=== PATIENT | male | born 1945 | race Caucasian/White ===

== ENCOUNTER 2017-01-15 06:02 | Inpatient (IN) | payer OTHER, BC ==
[2017-01-15] MEDS ORDERED: ceFAZolin 2 GM/DEXTROSE 100 ML IV ONE (06:26)
[2017-01-15] MEDS ORDERED: DEXAMETHASONE 10 MG/ML VIAL IVP ONE (06:26)
[2017-01-15] MEDS ORDERED: LR 1,000 ML IV ONE (06:27)
[2017-01-15] MEDS ORDERED: CHLORHEXIDINE GLUC HIBICLENS 118 ML BTL TP ONE (06:40)
[2017-01-15] MEDS ORDERED: THROMBIN (BOVINE) 5,000 UNIT VIAL TP ONE (06:41)
[2017-01-15] MEDS ORDERED: BACITRACIN 50,000 UNITS/10 ML SYR IRR ONE (06:41)
[2017-01-15] MEDS ORDERED: BUPIVACAINE 0.25% 30 ML SDV ONE (06:41)
--- NOTE | 2017-01-15 07:01 | PDHPUP ---
History & Physical Update H&P update statement: This history and physical update is based on an assessment of the patient which was completed after admission or registration (within 24 hours), but prior to the surgery/procedure. H&P update: H&P reviewed & patient examined, no change in patient's condition since H&P completed
[2017-01-15] MEDS ORDERED: PROPOFOL/EMULSION 500 MG/50 ML BOTTLE IV ONE ×2 (07:08→08:52)
[2017-01-15] MEDS ORDERED: PROPOFOL 200 MG/20 ML VIAL ONE (07:08)
[2017-01-15] MEDS ORDERED: fentaNYL 100 MCG/2 ML INJ ONE ×2 (07:08→10:33)
[2017-01-15] MEDS ORDERED: REMIFENTANIL HCL 1 MG VIAL ONE ×2 (07:08)
[2017-01-15] MEDS ORDERED: SUCCINYLCHOLINE CHLORIDE*ANESTHESIA ONLY*200 MG/10 ML SYR IVP ONE (07:10)
[2017-01-15] MEDS ORDERED: LIDOCAINE 2% 5 ML SDV ONE (07:10)
--- NOTE | 2017-01-15 07:44 | PDANEPAE ---
ANE History of Present Illness Patient presents for 1 level ACDF ANE Past Medical History - Cardiovascular History Hx Hypertension: No Hx Arrhythmias: No Hx Chest Pain: No Hx Coronary Artery / Peripheral Vascular Disease: No Hx CHF / Valvular Disease: No Hx Palpitations: No Cardiovascular History Comment: RECENT BP ELEVATION - Pulmonary History Hx COPD: No Hx Asthma/Reactive Airway Disease: No Hx Recent Upper Respiratory Infection: No Hx Oxygen in Use at Home: No Hx Sleep Apnea: Yes Sleep Apnea Screening Result - Last Documented: Negative Pulmonary History Comment: ASTHMA W/ALLERGIES - CATS DANDER & DUST - Neurologic History Hx Cerebrovascular Accident: No Hx Seizures: No Hx Dementia: No - Endocrine History Hx Diabetes: No - Renal History Hx Renal Disorders: No Renal History Comment: BLADDER CONTROL - Liver History Hx Hepatic Disorders: No - Neurological & Psychiatric Hx Hx Neurological and Psychiatric Disorders: No Neurological / Psychiatric History Comment: CYMBALTA FOR BACK PAIN - Cancer History Hx Cancer: No - Congenital Disorder History Hx Congenital Disorders: No - GI History Hx Gastrointestinal Disorders: Yes Gastrointestinal History Comment: OCCAS ACID REFLUX - Other Health History Other Health History: NEG - Chronic Pain History Chronic Pain: Yes (BACK PAIN) - Surgical History Prior Surgeries: HERNIA REPAIR. EYE SURGERY CHILDHOOD ANE Review of Systems Review of Systems: - Exercise capacity METS (RN): 4 METS ANE Patient History - Allergies Allergies/Adverse Reactions: cat dander Allergy (Verified 01/01/17 10:27) sulfite Allergy (Verified 01/01/17 10:27) - Home Medications Home medications: home medication list seen and reviewed Home Medications: Aspirin 01/01/17 [Last Taken Unknown] Cymbalta 01/01/17 [Last Taken 01/15/17 02:00] Herbals/Supplements -Info Only 01/01/17 [Last Taken Unknown] Naproxen 01/01/17 [Last Taken Unknown] Prilosec Otc 01/01/17 [Last Taken Unknown] Simvastatin 01/01/17 [Last Taken Unknown] - NPO status NPO Status: no food or drink >8 hours NPO Since - Liquids (Date): 01/15/17 NPO Since - Liquids (Time): 02:00 NPO Since - Solids (Date): 01/14/17 NPO Since - Solids (Time): 18:00 - Anes Hx Anes Hx: no prior problems - Smoking Hx Smoking Status: Former smoker - Family Anes Hx Family Hx Anesthesia Complications: NEG ANE Labs/Vital Signs - Vital Signs Blood Pressure: 138/95 Heart Rate: 78 Respiratory Rate: 14 O2 Sat (%): 91 Height: 162.56 cm Weight: 77.111 kg ANE Physical Exam - Airway Neck exam: decreased ROM, short neck Mallampati Score: Class 3 Mouth exam: small mouth opening, sotelo - Pulmonary Pulmonary: no respiratory distress - Cardiovascular Cardiovascular: regular rate and rhythym - ASA Status ASA Status: II ANE Anesthesia Plan Anesthesia Plan: general endotracheal anesthesia (RBA discussed)
[2017-01-15] MEDS ORDERED: PHENYLEPHRINE HCL 100 MCG/ML SYR ONE (07:46)
[2017-01-15] MEDS ORDERED: epHEDrine SULFATE 10 MG/ML SYR ONE (07:46)
[2017-01-15] MEDS ORDERED: ONDANSETRON 4 MG/2 ML VIAL ONE (08:15)
[2017-01-15] MEDS ORDERED: DEXAMETHASONE 4 MG/ML VIAL ONE (08:15)
[2017-01-15] MEDS ORDERED: HYDROmorphONE/DILAUDID 2 MG/ML INJ ONE (08:59)
[2017-01-15] MEDS ORDERED: BISACODYL 10 MG SUPP PR PRN (09:24)
[2017-01-15] MEDS ORDERED: diphenhydrAMINE 25 MG CAP PO PRN (09:24)
[2017-01-15] MEDS ORDERED: ONDANSETRON DISINTEGRATING 4 MG TAB PO PRN (09:24)
[2017-01-15] MEDS ORDERED: MAGNESIUM HYDROXIDE 30 ML UDCUP PO PRN (09:24)
[2017-01-15] MEDS ORDERED: LACTULOSE 20 GM/30 ML UDCUP PO PRN (09:24)
[2017-01-15] MEDS ORDERED: ONDANSETRON 4 MG/2 ML VIAL IVP PRN ×2 (09:24→09:47)
[2017-01-15] MEDS ORDERED: NS 1,000 ML IV SCH (09:30)
--- NOTE | 2017-01-15 09:31 | SOAPPROG ---
SOAP Progress Note Assessment/Plan: Assessment: 71 yo M sp C5/6 ACDF Plan: stable hard collar verenice x 1 please call with neuro changes 01/15/17 09:30 Subjective: + neck pain, no arm pain Objective: Vital Signs Temp Pulse Resp BP Pulse Ox 37.1 C 78 14 138/95 H 91 L 01/15/17 06:35 01/15/17 07:44 01/15/17 07:44 01/15/17 07:44 01/15/17 07:44 somnolent PERRL, No facial droop ZORAN x 4 + light touch ICD10 Worksheet Patient Problems: Problems Problem Status Onset Fusion of spine of cervical region Acute - ICD10 Problem Qualifiers (1) Fusion of spine of cervical region
[2017-01-15] MEDS: LABETALOL HCL 50 MG/10 ML SYR IVP PRN ×3 (09:46→11:03)
[2017-01-15] MEDS ORDERED: LABETALOL HCL 5 MG/ML 20 ML MDV ONE (09:46)
[2017-01-15] MEDS ORDERED: NALOXONE HCL 0.4 MG/ML INJ IVP PRN (09:47)
[2017-01-15] MEDS ORDERED: HYDROCODONE/APAP 5/325 TAB PO PRN (09:47)
[2017-01-15] MEDS ORDERED: LR 500 ML IV PRN (09:47)
[2017-01-15] MEDS ORDERED: OXYCODONE/APAP 5/325 TAB PO PRN (09:47)
[2017-01-15] MEDS ORDERED: HYDROmorphONE/DILAUDID 1 MG/ML INJ IVP PRN (09:47)
--- NOTE | 2017-01-15 09:48 | POSTANESTH ---
Post Anesthetic Evaluation Cardiovascular Status: Tx Hyper/Hypo-tension Respiratory Status: Normal, Stable Level of Consciousness/Mental Status: Can Participate in Eval Pain Control: Adequate, Prn Tx Ordered Nausea/Vomiting Control: Adequate, Prn Tx Ordered Complications Possibly Related to Anesthesia: None Noted
[2017-01-15] MEDS: fentaNYL 100 MCG/2 ML INJ IVP PRN ×2 (10:34→10:44)
--- NOTE | 2017-01-15 10:49 | GOP ---
[f rep st] OPERATIVE REPORT DATE OF OPERATION: 01/15/2017 SURGEON: Gal Saxena MD YARN HANDLER: David Storm. ANESTHESIA: General endotracheal. PREOPERATIVE DIAGNOSIS: 1. Cervical spondylitic myelopathy. 2. 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 3. Progressive myelopathy. 4. Obesity. POSTOPERATIVE DIAGNOSIS: 1. Cervical spondylitic myelopathy. 2. 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 3. Progressive myelopathy. 4. Obesity. PROCEDURE PERFORMED: Mini-open exposure for C5-6 and a complete anterior cervical diskectomy and art hrodesis, with a 12 mm structural PEEK interbody spacer and local autograft. Placement of a 23 mm Ln K CastleLoc-P anterior cervical plate with self-drilling screws. Use of intraoperative microscopy an d fluoroscopy. FINDINGS: ESTIMATED BLOOD LOSS: 25 cc. INDICATIONS: The patient is a 71-year-old man with myelopathic symptoms in the setting of a large di sc herniation and spinal cord compression on MRI at the C5-6 level. He presents now for surgical dec ompression and stabilization. DESCRIPTION OF PROCEDURE: After informed consent was obtained, the patient was taken to the operatin g room and placed in the supine position, with the head in the halter retractor system. The anterior cervical region was prepped and draped in a sterile fashion. After fluoroscopic localization of the correct level, the subcutaneous and intramuscular tissues were infiltrated with local anesthesia. A horizontal linear incision was then created at the level of the C5-6 interspace. This was carried t hrough the platysmal layer, using the monopolar electrocautery, and carried in the avascular plane be tween the sternocleidomastoid and carotid sheath laterally, and the strap muscles, trachea, and esoph ciro medially down to the prevertebral fascia, which was carefully incised with Metzenbaum scissors. The C5-6 interspace was identified and re-verified using intraoperative fluoroscopy. The large oste ophyte was carefully removed and harvested for local autograft. Lemitar distraction pins were inserte d and, under high-power microscopic visualization, a complete diskectomy was performed with preparati on of the endplates and removal of posterior longitudinal ligament. Bilateral foraminotomies were pe rformed. Meticulous hemostasis was achieved in the epidural space, which was also copiously irrigate d. The disc space was very irregular and required quite extensive drilling. Following adequate deco mpression, hemostasis, and copious irrigation, the remaining endplates were carefully prepared, and a n appropriately sized 12 mm structural PEEK interbody spacer, packed with local autograft in the cent er from the drilling and osteophytectomy, was then placed in the interspace under fluoroscopic image guidance. The distraction was removed, and an appropriately sized 23 mm LnK CastleLoc-P anterior cer vical plate was placed and secured with self-drilling screws. Following re-verification of good posi tion of the plate, screws, and interbody spacer using biplanar fluoroscopy, the locking mechanisms we re engaged and a drain was placed. The subcutaneous and intramuscular tissues were re-infiltrated wi th local anesthesia, and the wound was closed in a layered fashion using interrupted Vicryl sutures, followed by Steri-Strips on the skin. COMPLICATIONS: None. DISPOSITION: The patient is currently in the process of being repositioned for extubation. /[id number]/MODL
[2017-01-15] MEDS ORDERED: HYDROmorphONE/DILAUDID 1 MG/ML INJ ONE (11:06)
[2017-01-15] MEDS ORDERED: oxyCODONE IR 5 MG TAB ONE (11:23)
[2017-01-15] MEDS: oxyCODONE IR 5 MG TAB PO PRN ×5 (11:24→21:55)
[2017-01-15] MEDS: METHOCARBAMOL 750 MG TAB PO PRN ×2 (12:01→21:55)
[2017-01-15] MEDS: ACETAMINOPHEN 500 MG TAB PO SCH ×2 (13:17→21:55)
[2017-01-15] MEDS: ceFAZolin 2 GM/DEXTROSE 100 ML IV SCH ×2 (13:19→21:50)
[2017-01-15] MEDS: POLYETHYLENE GLYCOL 3350 17 GM PKT PO SCH ×2 (16:52→21:49)
[2017-01-15] MEDS: FAMOTIDINE 20 MG TAB PO SCH (21:55)
[2017-01-15] MEDS: SENNOSIDES/DOCUSATE SODIUM TAB PO SCH (21:55)
[2017-01-15 23:40] VITALS: RESP 16
[2017-01-16] MEDS: oxyCODONE IR 5 MG TAB PO PRN (02:35)
[2017-01-16 05:08] VITALS: TEMP 98.8; O2SAT 95
[2017-01-16] MEDS: METHOCARBAMOL 750 MG TAB PO PRN ×2 (05:35→12:19)
[2017-01-16] MEDS: ACETAMINOPHEN 500 MG TAB PO SCH ×2 (05:35→14:32)
[2017-01-16 08:11] VITALS: BP 114/91; PULSE 87
--- NOTE | 2017-01-16 08:41 | NEUSURGPN ---
Assessment/Plan: Assessment: 71 yo M sp C5/6 ACDF POD#1 Plan: stable hard collar verenice was removed PT/OT - may need home PT. Post op xrays pending Pain management please call with neuro changes D/w Dr Huerta Subjective: Pt resting in bed, states he is swallowing ok. Has been able to urinate. Wants to do home PT. Has some numbness in his right hand. Objective: AAOx3 NAD VSS MAEx4 Motor 5/5 BUE/BLE Dressing cdi Hard collar on +LT Urinary Catheter in Place: No - Physician Discussed Patient with Dr.: [facility] Physical Exam - Vitals, I&O, Labs I and O 01/15/17 01/16/17 01/17/17 05:59 05:59 05:59 Intake Total 1665 Balance 1665 Weight 77.111 kg Intake: Oral (ml) 1365 IV Infused (ml) 300 Ns 1,000 ml @ 100 mls/hr 200 IV CONT MEGAN Rx#: [id number] ceFAZolin 2 GM/DEXTROSE 100 100 ml @ 200 mls/hr IV Q8HRS MEGAN Rx#:[id number] Other: Intake Quantity Yes Sufficient Number of Voids Toilet 1 Vital Signs Temp Pulse Resp BP Pulse Ox 37.1 C 87 16 114/91 H 95 01/16/17 08:00 01/16/17 08:00 01/16/17 08:00 01/16/17 08:00 01/16/17 08:00 ICD10 Worksheet Patient Problems: Problems Problem Status Onset Fusion of spine of cervical region Acute
[2017-01-16] MEDS ORDERED: ENOXAPARIN 40 MG/0.4 ML SYR SC SCH (09:00)
[2017-01-16] MEDS: FAMOTIDINE 20 MG TAB PO SCH (09:52)
[2017-01-16] MEDS: SENNOSIDES/DOCUSATE SODIUM TAB PO SCH (09:52)
[2017-01-16] MEDS: POLYETHYLENE GLYCOL 3350 17 GM PKT PO SCH (09:52)
[2017-01-16] MEDS ORDERED: METAXALONE 800 MG TAB PO PRN (13:29)
[2017-01-16] MEDS ORDERED: NON-FORMULARY NEW DRUG (Omeprazole [Prilosec 20 Mg] 20 MG) PO PRN (13:29)
--- NOTE | 2017-01-16 13:31 | PDIAF ---
- Diagnosis Code Status: Full Code - Medication Management Discharge Medications: Medications to Continue on Transfer DULoxetine [Cymbalta 60 MG (*)] 120 mg PO DAILY 01/01/17 [Last Taken 01/15/17 02 :00] Omeprazole [Prilosec 20 mg] 20 mg PO DAILY PRN 01/01/17 [Last Taken Unknown] Simvastatin [Zocor] 20 mg PO HS 01/01/17 [Last Taken 01/14/17] Acetaminophen [Tylenol ES 500 mg (*)] 1,000 mg PO DAILY PRN 01/15/17 [Last Taken 01/15/17 02:00] Ascorbic Acid [Vitamin C 500 mg (*)] 500 mg PO DAILY 01/15/17 [Last Taken Unknown] Beclomethasone Dipropionate [Qnasl] 1 spray EACHNARE DAILY 01/15/17 [Last Taken 01/15/17] Fexofenadine HCl [[place] Allergy] 180 mg PO DAILY 01/15/17 [Last Taken Unknown] Glucosamine/Chondroitin [Glucosamine/Chondroitin (*)] 1 each PO DAILY 01/15/17 [ Last Taken Unknown] Metaxalone [Skelaxin 800 mg (*)] 800 mg PO BID PRN 01/15/17 [Last Taken 2 Weeks Ago ~01/01/17] Methocarbamol [Robaxin 750 mg (*)] 750 mg PO QID PRN tab 01/15/17 [Last Taken Unknown] Psyllium Seed [Psyllium] 3.4 gm PO DAILY 01/15/17 [Last Taken Unknown] oxyCODONE IR [Oxycodone Ir (*)] 5 - 10 mg PO Q4HRS PRN tab 01/15/17 [Last Taken Unknown] Discharge Medications: Refer to the Discharge Home Medication list for PRN reason. PICC Care - Routine: N/A - Orders Services needed: Home Care, Registered Nurse, Physical Therapy, Occupational Therapy Home Care Face to Face: I certify that this patient was under my care and that I had the required [id number] encounter meeting the encounter requirements on the discharge day. My findings support the fact that the patient is homebound as defined in Home Care Face to Face Continued: CMS Chapter 7 Medicare Benefits Manual 30.1.1 , The condition of the patient is such that there exists a normal inability to leave home and consequently, leaving home would require a considerable and taxing effort. Diet Recommendation: no restrictions on diet Diet Texture: Regular Texture Diet - Follow Up Care Current Providers and Referrals: PITER CARTER [Primary Care Provider] -
[2017-01-16] MEDS ORDERED: PANTOPRAZOLE SODIUM 40 MG TAB PO SCH (14:00)
--- NOTE | 2017-01-16 15:00 | ASMTCMCOM ---
CM Note CM Note Notes: Pt medically stable for d/c w [facility] RN/OT/PT. Date Signed: 01/16/2017 02:59 PM Electronically Signed By:MARIELA Ken
--- NOTE | 2017-01-16 15:21 | ASDISCHSUM ---
Discharge Information Plan Status:Home with Home Health Medically Cleared to Leave: Discharge Date:01/16/2017 03:06 PM CM D/C Disposition:Home Health Service ADT D/C Disposition:Home Health Service Projected Discharge Date:01/16/2017 03:06 PM Transportation at D/C: Discharge Delay Reason: Follow-Up Date:01/16/2017 03:06 PM Discharge Slot: Final Diagnosis: Placement Information Patient Contact Information Contact Name:COCO Relationship: Address:[address] City:[place] Alternate Phone: [facility]/Zip Code:[place] [address] Email: Financial Information Financial Class: Primary Plan Desc:MEDICARE INPATIENT Primary Plan Number:[id number] Secondary Plan Desc:[employer] Secondary Plan Number:[id number] Assessment Information [facility] CM Progress Note CM Note CM Note Notes: Pt medically stable for d/c w [facility] RN/OT/PT. Date Signed: 01/16/2017 02:59 PM Electronically Signed By:MARIELA Ken Intervention Information
[2017-01-16] MEDS ORDERED: NON-FORMULARY NEW DRUG (Simvastatin [Zocor] 20 MG) PO SCH (21:00)
[2017-01-16] MEDS ORDERED: ATORVASTATIN CALCIUM 10 MG TAB PO SCH (21:00)
[2017-01-17] MEDS ORDERED: DULoxetine 60 MG CAP PO SCH (09:00)
[2017-01-17] MEDS ORDERED: PSYLLIUM SEED PO SCH (09:00)
[2017-01-17] MEDS ORDERED: CETIRIZINE 10 MG TAB PO SCH (09:00)
[2017-01-17] MEDS ORDERED: BECLOMETHASONE DIPROPIONATE EACHNARE SCH (09:00)
[2017-01-17] MEDS ORDERED: NON-FORMULARY NEW DRUG (Fexofenadine Hcl [Allegra Allergy] 180 MG) PO SCH (09:00)
[2017-01-18] MEDS ORDERED: ENOXAPARIN 40 MG/0.4 ML SYR SC SCH (09:00)
== END 2017-01-16 15:06 | disposition home health service (06) | DRG 473 ==
LOC: FSGY 06:02 → OBSVTOIN 11:40 → F3N 11:40
PROVIDERS: ADMIT Neurological Surgery; ATTEND Neurological Surgery
DX: M50.022 Cervical disc disorder at C5-C6 level with myelopathy (principal); E66.9 Obesity, unspecified; G47.30 Sleep apnea, unspecified
CPT/HCPCS: 92610-GN; 97116-GP; 97162-GP; 97165-GO; 97530-GP; C1713; G8978-GP-CJ; G8979-GP-CI; G8987-GO-CI; G8988-GO-CI; G8989-GO-CI; G8996-GN-CI; G8997-GN-CH; J0171; J0330; J0690; J1100; J1170; J1650; J2370; J2405; J2704; J3010; J3490

== ENCOUNTER 2017-03-27 08:18 | Inpatient (IN) | payer OTHER, BC ==
--- NOTE | 2017-03-27 09:28 | EDPHY ---
General Narrative: CHIEF COMPLAINT: Abdominal pain, leg weakness, back pain HISTORY OF PRESENT ILLNESS: Patient complains of several things. He complains of abdominal pain that started yesterday. It is lower abdominal pain. It radiates into the back. [id number]. Nausea but no vomiting. No fever chills. No trauma or injury. No bloody stools. No constipation. He also has increasing weakness and difficulty moving his legs, that he attributes to his spinal stenosis. He is not sure which level it is coming from, but he does have history of cervical lumbar stenosis. He is status post ACDF in December of this year. This did improve his symptoms significantly. Over the past few days his lower extremity symptoms have returned. Difficulty ambulating. Difficulty lifting his feet. No saddle anesthesia. No incontinence of bowel or bladder. No retention of bowel or bladder. No new trauma or injury. Patient was scheduled to have surgery on his left rotator cuff today but they cancel this due to the symptoms. No other associated complaints or modifying factors. REVIEW OF SYSTEMS: Ten systems reviewed and are negative unless otherwise noted in the HPI PCP: Dr. Valenzuela SPECIALISTS: Dr. Saxena PAST MEDICAL HISTORY: Hypertension, chronic back pain, seasonal allergies, dyslipidemia, acid reflux, cervical stenosis, lumbar stenosis PAST SURGICAL HISTORY: ACDF December 2016 SOCIAL HISTORY: Nonsmoker. FAMILY HISTORY: EXAMINATION General Appearance: Alert, no distress Head: normocephalic, atraumatic Eyes: Pupils equal and round, no conjunctival pallor or injection ENT, Mouth: Mucous membranes moist. Airway patent Neck: Normal inspection, supple, non-tender. Well-healed anterior surgical incision. No crepitus, step-off or deformity. Respiratory: Lungs are clear to auscultation. No wheezing, rhonchi or crackles Cardiovascular: Regular rate and rhythm. No murmur Gastrointestinal: Abdomen is soft and nondistended. Tenderness of the lower abdomen. Mild tenderness in the epigastrium. No tympany. No rigidity. No guarding. Back: No midline tenderness at any level of the spine. No crepitus, step-off or deformity. There is scoliosis noted. Neurological: GCS 15. Cranial nerves 2-12 grossly intact. A&O, nonfocal, strength symmetric in the upper lower extremities. No pronator drift. Normal finger-nose. Patellar reflexes symmetric. Skin: Warm and dry, no rash. No petechiae or purpura Extremities: Nontender, no pedal edema Psychiatric: Mood and affect normal DIFFERENTIAL DIAGNOSES: Including but not limited to cervical radiculopathy, lumbar radiculopathy, colitis, diverticulitis, cholecystitis, cholelithiasis, aortic dissection, aortic aneurysm, acute cord compression MDM: 9:20 a.m. Abdominal pain with possible spinal etiology for this. He does have a shuffling gait with weakness of the pelvic girdle. This is a very complex scenarios the patient does have a recent ACDF, no lumbar stenosis and scoliosis. He has no point tenderness to the lumbar thoracic spine but does have chronic pain. I a.m. evaluating for the abdominal pain with CT scan abdomen pelvis in all discussed with Dr. Qiunteros for further workup. 9:25 a.m. Case discussed with Dr. Quinteros. We have agreed that the patient is best suited with MRI of the cervical, lumbar and thoracic spine given his neuro complaints. CT scan of the abdomen pelvis will be held until after the MRI so that we do not obscure with contrast. 10:00 a.m. Patient re-evaluated. He is awaiting MRI. He is scheduled to go between 2010. No acute distress. Laboratory studies thus far negative. 11:55 a.m. LFTs are abnormal. This is changed from baseline. I have ordered ultrasound the gallbladder. 12:09 p.m. Case discussed with radiologist Dr. Caldwell. MRI of the cervical spine does not reveal any emergent surgical findings. There are chronic changes as noted. No previous comparison available. 1:05 p.m. MRI of the lumbar spine discussed with Dr. Caldwell. Findings as documented. No acute cord compression. 1:15 p.m. I reviewed the findings of the thoracic MRI. Multiple areas of cord compression without edema. Questionable chronicity of this. I will consult Neurosurgery. 1:35 p.m. Case discussed with the on-call neurosurgery Richie CALLOWAY. We discussed the patient 's history, physical exam findings and MRI findings. He will review the MRIs and he or someone with his office will come evaluate the patient in the emergency department. I informed him that I will be admitted the patient to the hospital for this and his abdominal complaints. 1:45 p.m. Case discussed with hospitalist Kay Rodrigues. Patient will be admitted to the service of Dr. German. He is admitted in stable condition. This is pending the outcome of the gallbladder ultrasound. I will follow up on this and with General surgery if needed. Patient is pending neurosurgery evaluation in the emergency department. I have re-evaluated him he remains intact. His neuro examination in bed is unremarkable and symmetric. But he still has difficulty ambulating with out of bed. 2:20 p.m. Contacted by radiologist Dr. Lopez. Findings from the gallbladder ultrasound discussed as documented. I will consult General surgery. 2:30 p.m. Case discussed with general surgeon Dr. Calderon. He will provide consultation on the patient. He recommends acute hepatitis panel. Patient remains in no acute distress and is admitted in stable condition. 3:00 p.m. Patient re-evaluated. I have had a long discussion with the patient, his physicians son, as . We discussed the MRI findings, the gallbladder ultrasound findings, laboratory studies. I provided copies laboratory studies to the son with the patient's permission. Hospitalist has been contacted and I discussed the case with Dr. German. This is not a clear etiology but he will evaluated for further workup. 5:00 p.m. Hepatitis panel negative. Acetaminophen level order at request of Dr. German. At this time the patient has been admitted in stable condition. SUPERVISION: Patient was independently examined, but I discussed the case with my secondary supervising physician Dr. Quinteros - Diagnostics Imaging Results: Imaging Impressions Chest X-Ray 03/27/17 09:21 Impression: 1. No acute pneumonia. 2. No pneumothorax. 3. Atherosclerotic tortuous aorta. Cervical Spine MRI 03/27/17 09:26 Impression: Multilevel degenerative disk and degenerative joint disease in the cervical spine. The levels of more significant central spinal canal narrowing are at C6-C7 and C7-T1. There are multiple levels of moderate to severe neural foraminal narrowing. Please see detailed description by level above. Lumbar Spine MRI 03/27/17 09:26 Impression: Multilevel degenerative disk and degenerative joint disease of the lumbar spine. Level of most significant central spinal canal narrowing is at L3- L4. Multiple levels of severe neural foraminal narrowing. Please see detailed description by level above. Results called and discussed with Bruno Schilling, on 03/27/2017, 13:14. Thoracic Spine MRI 03/27/17 09:26 Impression: 1. Multilevel thoracic spondylosis with cord compression at 5 levels described above. 2. Incompletely evaluated right renal cyst. Consider renal ultrasound to ensure that this completely represents a simple cyst. Abdomen Ultrasound 03/27/17 11:57 Impression: 1. Hepatic steatosis suspected. No focal liver lesion is identified. 2. The pancreas is obscured by overlying bowel gas. 3. Gallbladder sludge suspected within the gallbladder. There is a incidental cyst along the inner wall of the gallbladder lumen of incidental note. 4. Prominent cyst mid right kidney. Findings discussed with Bruno Schilling PAC at 14:20 hour, 03/27/2017. - History Smoking Status: Former smoker - Objective Vital Signs: Initial Vital Signs Temperature (C) 98.7 F 03/27/17 08:22 Heart Rate 112 H 03/27/17 08:22 Respiratory Rate 16 03/27/17 08:22 Blood Pressure 95/79 L 03/27/17 08:22 O2 Delivery Mode Room Air O2 (L/minute) 2 Allergies/Adverse Reactions: cat dander Allergy (Verified 01/01/17 10:27) Sulfa (Sulfonamide Antibiotics) Allergy (Verified 03/27/17 14:04) Swelling/neck,face,throat Home Medications: Medication Instructions Recorded DULoxetine [Cymbalta 60 MG (*)] 60 mg PO BID 01/01/17 Omeprazole [Prilosec 20 mg] 20 mg PO DAILY PRN 01/01/17 Simvastatin [Zocor] 20 mg PO HS 01/01/17 Acetaminophen [Tylenol ES 500 mg 1,000 mg PO DAILY PRN 01/15/17 (*)] Ascorbic Acid [Vitamin C 500 mg 500 mg PO DAILY 01/15/17 (*)] Beclomethasone Dipropionate [Qnasl] 1 spray EACHNARE DAILY 01/15/17 Fexofenadine HCl [[place] Allergy] 180 mg PO DAILY PRN 01/15/17 Metaxalone [Skelaxin 800 mg (*)] 800 mg PO BID PRN 01/15/17 Psyllium Husk (with Sugar) 1 each PO DAILY 03/27/17 [Metamucil Packet] amLODIPine BESYLATE [Norvasc 5 mg 5 mg PO HS 03/27/17 (*)] Laboratory Results: Laboratory Results 03/27/17 09:29 03/27/17 09:29 03/27/17 03/27/17 03/27/17 09:29 09:29 09:29 WBC RBC Hgb POC Hgb Hct POC Hct MCV MCH MCHC RDW Plt Count MPV Neut % (Auto) Lymph % (Auto) Walsh % (Auto) Eos % (Auto) Baso % (Auto) Nucleat RBC Rel Count Absolute Neuts (auto) Absolute Lymphs (auto) Absolute Monos (auto) Absolute Eos (auto) Absolute Basos (auto) Absolute Nucleated RBC Immature Gran % Immature Gran # PT INR APTT POC Sodium Sodium 136 mEq/L mEq/L (134-144) POC Potassium Potassium 4.0 mEq/L mEq/L (3.5-5.2) POC Chloride Chloride 98 mEq/L mEq/L (97-110) Carbon Dioxide 25 mEq/l mEq/l (22-31) Anion Gap 13 mEq/L mEq/L (8-16) POC BUN BUN 16 mg/dL mg/dL (7-23) Creatinine 0.9 mg/dL mg/dL (0.7-1.3) POC Creatinine Estimated GFR > 60 Glucose 104 mg/dL H mg/dL (70-100) POC Glucose Calcium 9.8 mg/dL mg/dL (8.5-10.4) Total Bilirubin 2.2 mg/dL H mg/dL (0.1-1.4) Conjugated Bilirubin 0.6 mg/dL H mg/dL (0.0-0.5) Unconjugated Bilirubin 1.6 mg/dL H mg/dL (0.0-1.1) AST 521 IU/L H IU/L (17-59) ALT 445 IU/L H IU/L (21-72) Alkaline Phosphatase 94 IU/L IU/L (38-126) Total Protein 6.8 g/dL g/dL (6.3-8.2) Albumin 4.2 g/dL g/dL (3.5-5.0) Lipase 54 IU/L IU/L (23-300) Acetaminophen < 10 mcg/mL L mcg/mL (10-30) Hepatitis A IgM Ab NEGATIVE (NEGATIVE) Hep Bs Antigen NEGATIVE (NEGATIVE) Hep B Core IgM Ab NEGATIVE (NEGATIVE) Hepatitis C Antibody NEGATIVE (NEGATIVE) 03/27/17 03/27/17 03/27/17 09:29 09:29 09:24 WBC 9.07 10^3/uL 10^3/uL (3.80-9.50) RBC 4.60 10^6/uL 10^6/uL (4.40-6.38) Hgb 15.4 g/dL g/dL (13.7-17.5) POC Hgb 16.0 gm/dL gm/dL (13.7-17.5) Hct 43.7 % % (40.0-51.0) POC Hct 47 % % (40-51) MCV 95.0 fL fL (81.5-99.8) MCH 33.5 pg pg (27.9-34.1) MCHC 35.2 g/dL g/dL (32.4-36.7) RDW 12.8 % % (11.5-15.2) Plt Count 270 10^3/uL 10^3/uL (150-400) MPV 10.1 fL fL (8.7-11.7) Neut % (Auto) 86.5 % H % (39.3-74.2) Lymph % (Auto) 6.3 % L % (15.0-45.0) Walsh % (Auto) 6.8 % % (4.5-13.0) Eos % (Auto) 0.0 % L % (0.6-7.6) Baso % (Auto) 0.1 % L % (0.3-1.7) Nucleat RBC Rel Count 0.0 % % (0.0-0.2) Absolute Neuts (auto) 7.84 10^3/uL H 10^3/uL (1.70-6.50) Absolute Lymphs (auto) 0.57 10^3/uL L 10^3/uL (1.00-3.00) Absolute Monos (auto) 0.62 10^3/uL 10^3/uL (0.30-0.80) Absolute Eos (auto) 0.00 10^3/uL L 10^3/uL (0.03-0.40) Absolute Basos (auto) 0.01 10^3/uL L 10^3/uL (0.02-0.10) Absolute Nucleated RBC 0.00 10^3/uL 10^3/uL (0-0.01) Immature Gran % 0.3 % % (0.0-1.1) Immature Gran # 0.03 10^3/uL 10^3/uL (0.00-0.10) PT 13.0 SEC SEC (12.0-15.0) INR 0.96 (0.83-1.16) APTT 31.2 SEC SEC (23.0-38.0) POC Sodium 136 mEq/L mEq/L (134-144) Sodium POC Potassium 3.8 mEq/L mEq/L (3.3-5.0) Potassium POC Chloride 97 mEq/L mEq/L (97-110) Chloride Carbon Dioxide Anion Gap POC BUN 16 mg/dL mg/dL (7-23) BUN Creatinine POC Creatinine 0.9 mg/dL mg/dL (0.7-1.3) Estimated GFR Glucose POC Glucose 113 mg/dL H mg/dL (70-100) Calcium Total Bilirubin Conjugated Bilirubin Unconjugated Bilirubin AST ALT Alkaline Phosphatase Total Protein Albumin Lipase Acetaminophen Hepatitis A IgM Ab Hep Bs Antigen Hep B Core IgM Ab Hepatitis C Antibody Medications Given: Discontinued Medications Fentanyl (Sublimaze) 100 mcg IVP EDNOW ONE Stop: 03/27/17 12:11 Last Admin: 03/27/17 12:11 Dose: 100 mcg Sodium Chloride (Ns) 1,000 mls @ 0 mls/hr IV ONCE ONE PRN Reason: Wide Open Stop: 03/27/17 13:01 Last Admin: 03/27/17 13:05 Dose: 1,000 mls Point of Care Test Results: 03/27/17 09:24 POC Sodium 136 POC Potassium 3.8 POC Chloride 97 POC BUN 16 POC Creatinine 0.9 POC Glucose 113 H Departure - Departure Disposition: [facility] Inpatient Acute Clinical Impression: Thoracic spondylitis, Thoracic spondylosis with cord compression, Hyperbilirubinemia, Transaminitis Abdominal pain Qualifiers: Abdominal location: generalized Qualified Code(s): R10.84 - Generalized abdominal pain Condition: Good
[2017-03-27 09:51] LABS: % IMMATURE GRANULYOCYTES 0.3 % (0.0-1.1); ABSOLUTE IMMATURE GRANULOCYTES 0.03 10^3/uL (0.00-0.10); ADD DIFF? NO; ADD MORPH? NO; ADD SCAN? NO; ATYPICAL LYMPHOCYTE FLAG 0 (0-99); FRAGMENT RBC FLAG 0 (0-99); HEMATOCRIT 43.7 % (40.0-51.0); HEMOGLOBIN 15.4 g/dL (13.7-17.5); LEFT SHIFT FLG 10 (0-99); LIPEMIA HEMOLYSIS FLAG 90 (0-99); MEAN CELL HEMOGLOBIN 33.5 pg (27.9-34.1); MEAN CELL HEMOGLOBIN CONCENTR. 35.2 g/dL (32.4-36.7); MEAN PLATELET VOLUME 10.1 fL (8.7-11.7); PLATELET CLUMPS FLAG 0 (0-99); PLATELET COUNT 270 10^3/uL (150-400); RED CELL DISTRIBUTION WIDTH 12.8 % (11.5-15.2)
[2017-03-27 09:59] LABS: INR 0.96 (0.83-1.16)
[2017-03-27 10:00] LABS: APTT 31.2 SEC (23.0-38.0)
[2017-03-27 10:17] LABS: ALANINE AMINOTRANSFERASE 445 IU/L (21-72); ALBUMIN 4.2 g/dL (3.5-5.0); ALKALINE PHOSPHATASE 94 IU/L (38-126); ANION GAP 13 mEq/L (8-16); ASPARTATE AMINOTRANSFERASE 521 IU/L (17-59); BILIRUBIN,TOTAL 2.2 mg/dL (0.1-1.4); BILIRUBIN-CONJUGATED 0.6 mg/dL (0.0-0.5); BILIRUBIN-UNCONJUGATED 1.6 mg/dL (0.0-1.1); CALCIUM 9.8 mg/dL (8.5-10.4); CARBON DIOXIDE 25 mEq/l (22-31); CHLORIDE 98 mEq/L (97-110); CREATININE 0.9 mg/dL (0.7-1.3); GLOMERULAR FILTRATION RATE > 60; GLUCOSE 104 mg/dL (70-100); SODIUM 136 mEq/L (134-144); TOTAL PROTEIN 6.8 g/dL (6.3-8.2)
[2017-03-27] MEDS ORDERED: fentaNYL 100 MCG/2 ML INJ ONE (12:04)
[2017-03-27] MEDS ORDERED: fentaNYL 100 MCG/2 ML INJ IVP ONE (12:10)
[2017-03-27] MEDS ORDERED: NS 1,000 ML IV ONE (13:00)
--- NOTE | 2017-03-27 13:59 | CPEKG ---
Heart Rate: 95 RR Interval: 632 P-R Interval: 168 QRSD Interval: 80 QT Interval: 356 QTC Interval: 448 P [place]: 33 QRS [place]: -26 T Wave [place]: 24 EKG Severity - BORDERLINE ECG - EKG Impression: SINUS RHYTHM EKG Impression: BORDERLINE LEFT AXIS DEVIATION EKG Impression: BORDERLINE T WAVE ABNORMALITIES Electronically Signed By: Daly Quinteros 27-Mar-2017 15:22:03
--- NOTE | 2017-03-27 15:28 | NEUSURGPN ---
Assessment/Plan: 71 year old male with LE weakness and left hip pain Patient seen and examined in ED by myself and Dr. Garcia. Full note dictated. MRI L-spine reviewed: Multi-level degenerative changes with severe foraminal stenosis. On exam patient had increased pain with internal/external rotation of the left hip - will obtain MRI of the left hip, pending results may need ortho consult - pain control - PT/OT - will defer to medicine regarding abdominal pain Subjective: Experiencing left hip pain and LE weakness. No LE numbness. Has a history of a lumbar laminectomy. Objective: Awake. Alert. PERRL. EOMI. Facial expression symmetrical Muscle strength full at 5/5 Sensation intact Left hip pain increased with internal/external rotation - Physician Patient Seen by Dr.: Garcia Neurosurgery Physical Exam - Vitals, I&O, Labs Vital Signs Temp Pulse Resp BP Pulse Ox 37.1 C 104 H 18 115/79 92 03/27/17 08:22 03/27/17 13:07 03/27/17 13:07 03/27/17 13:07 03/27/17 13:08 ICD10 Worksheet Patient Problems: Problems Problem Status Onset Abdominal pain Acute Hyperbilirubinemia Acute Thoracic spondylitis Acute Thoracic spondylosis with cord compression Acute Transaminitis Acute Fusion of spine of cervical region Acute
[2017-03-27 15:34] LABS: COLOR YELLOW; LEUKOCYTE ESTERASE,URINE NEGATIVE (NEGATIVE); NITRITE,URINE NEGATIVE (NEGATIVE)
[2017-03-27 15:36] LABS: MUCUS 2+ /lpf (NONE-1+); RBC,URINE 15-25 /hpf (0-3)
[2017-03-27] MEDS ORDERED: ONDANSETRON DISINTEGRATING 4 MG TAB PO PRN (16:42)
[2017-03-27] MEDS ORDERED: ONDANSETRON 4 MG/2 ML VIAL IVP PRN (16:42)
[2017-03-27] MEDS ORDERED: NON-FORMULARY NEW DRUG (Omeprazole [Prilosec 20 Mg] 20 MG) PO PRN (16:44)
[2017-03-27] MEDS ORDERED: NON-FORMULARY NEW DRUG (Fexofenadine Hcl [Allegra Allergy] 180 MG) PO PRN (16:44)
[2017-03-27] MEDS ORDERED: PANTOPRAZOLE SODIUM 40 MG TAB PO PRN (16:49)
--- NOTE | 2017-03-27 17:24 | GHP ---
[f rep st] HISTORY AND PHYSICAL DATE OF ADMISSION: 03/27/2017 The patient is a pleasant 71-year-old gentleman with a history of cervical spine disease. He had an anterior decompression and spinal fusion in December of this year by Dr. Saxena for central c ord stenosis. This relieved the problem of urinary incontinence and weakness. He was discharged jaz e, and over the last couple of days. He developed some generalized weakness in his lower extremities including a shuffling gait. This morning, he had a hard time even lifting his foot over a threshold , which is uncommon for him. It is somewhat limited by pain in his left hip. He has not had fever o r chills. He does not have pain with passive movement of his left hip. There was some discussion that he may have a bit of a tremor in his left hand that I did not observe during our interaction. The patient is alert and speaking without flat affect. He also developed, yesterday after having breakfast of eggs [place], some abdominal pain and bloatin g. He has been taking some Tylenol but is not taking recommended doses but otherwise, now he is not a heavy drinker nor has he been in the past. He has not been jaundiced or yellow. He has not noted light stools. No fever or chills. No cough. No sputum. No nausea, vomiting, diarrhea. REVIEW OF SYSTEMS: Complete 10-point review of systems conducted and negative as noted in the HPI. PAST MEDICAL HISTORY: 1. Spine disease with central canal stenosis and neuroforaminal narrowing throughout his spine. 2. Hyperlipidemia. 3. Allergies. 4. Hypertension. 5. Sleep apnea with nocturnal hypoxemia. ALLERGIES: Sulfa and cat dander. MEDICATIONS: Home medications are amlodipine, vitamin C, Tylenol, psyllium husk, omeprazole, Skelaxi n (which he has not been taking recently, maybe been taking 1 daily), fexofenadine, duloxetine, beclo methasone, nasal spray, and simvastatin. A SOCIAL HISTORY: He lives in [place]. His son is a adoption manager in [place], present at th e bedside. Does not smoke cigarettes or drink heavy alcohol. FAMILY HISTORY: Son is healthy. PHYSICAL EXAMINATION: VITAL SIGNS: Afebrile at 37. Blood pressure 128/85, pulse 85, breathing 18 t imes a minute, 95% on room air. GENERAL: No acute distress. HEENT: Sclerae anicteric. Oropharynx clear. Mucous membranes moist. NECK: Supple without lymphadenopathy or JVD. LUNGS: Clear to aus cultation bilaterally. HEART: S1, S2. ABDOMEN: Soft, nontender, nondistended. LOWER EXTREMITIES: Without edema. Calves are nontender. SKIN: Without rash. NEUROLOGIC: Shows upper extremity and lower extremity strength is 5/5 bilaterally, including dorsiflexion. Sensation is intact bilaterall y. Cerebellar testing is normal with the exception of his left heel mccabe, limited by pain in his lef t hip. I watch him gait. He has a bit of a shuffling gait. It is slow. It looks like he is having some difficult balance. LABORATORY: Sodium 136, potassium 4, chloride 98, bicarb 25, BUN 16, creatinine 0.9, glucose 104. C alcium 9.8. Total bilirubin is 2.2. This is predominantly unconjugated. AST is 521, ALT is 445, al kaline phosphatase is 94. Lipase 54. UA shows 15-25 red cells, 5-10 white cells. White count 9, he matocrit 44, platelets 270,000. INR is 1. His Tylenol level is pending. Abdominal ultrasound shows gallbladder sludge with a thickened gallbladder wall with an incidental cy st along the inner wall of the gallbladder, prominent cyst in the right mid kidney. EKG shows sinus at 95 with left axis deviation, normal intervals. No ST or T-wave changes. Chest x-ray, interpreted by me, shows no acute cardiopulmonary disease. C-spine MRI shows degenerative joint disease of the cervical spine. Central canal narrowing at C6-C7 and C7-T1. Multiple levels of moderate to severe n euroforaminal narrowing. Thoracic spine MRI shows central cord narrowing without edema. Incompletel y evaluated right renal cyst. Lumbar spine MRI: Multilevel degenerative disk disease of the lumbar spine most significant at L3-L4. Multiple levels of severe neuroforaminal narrowing. Discussed the case with Bruno Schilling of the emergency department. ASSESSMENT AND PLAN: This 71-year-old gentleman presents with weakness, abdominal pain, elevated antoni er function tests, and abnormal MRI. 1. Weakness with abnormal gait. The patient has an abnormal MRI but on testing of individual muscle groups, the patient's testing is fine. He does have a shuffling gait. It does not necessarily look parkinsonian, but I think it is reasonable to have Neurology see him to evaluate. I have ordered an MRI of his brain. I do not think this represents a CVA as it is bilateral. The patient also has a fair amount of pain in his left hip, which could be limiting his gait. His consideration of neuropat hy in his spinothalamic tract could lead to decreased proprioception is another cause. 2. Elevated liver function tests. He has remarkably elevated transaminases. I have sent a Tylenol level. Surgery has see him. It does not appear to be hepatobiliary, but HIDA scan is pending. Jeny ent is not a heavy drinker, does not have cirrhosis. Will follow. Acute hepatitis panel is negative . 3. Left hip pain. MRI has been ordered. I suspect the patient has significant arthritis. He is no t acutely sick and does not have pain to passive movement to suggests that he has septic arthritis. 4. Generalized weakness. Let PT and OT see him. 5. Sleep apnea. We will continue his therapy. 6. Hypertension. Continue his amlodipine. DISPOSITION: Inpatient status. PT/OT. /[id number]/MODL
[2017-03-27] MEDS ORDERED: CETIRIZINE 10 MG TAB PO PRN (17:55)
--- NOTE | 2017-03-27 19:26 | GCON ---
[f rep st] CONSULTATION DATE OF CONSULTATION: 03/27/2017 CHIEF COMPLAINT: New onset leg weakness, back pain and abdominal pain. HISTORY OF PRESENT ILLNESS: This is a 71-year-old male who presents to the emergency department with multiple complaints. Briefly, he was in his usual state of health; last evening, began to have what appears to have been fairly excruciating abdominal pain which he stated was in a bandlike fashion around his abdomen, causing secondary back pain as well. He denied having any precipitating events to this, and states that no one else who ate dinner was sick. At any rate, he went on throughout the night. The pain essentially stayed the same, did not get any worse but did not appear to get much better. He awoke today and attempted to ambulate, and noted that his gait was more difficult, noting more weakness in his lower extremities, which is new for him. Because of both of the complaints, he decided to present to the emergency department. In the emergency department, he stated that he was to have rotator cuff surgery on his left shoulder today, but cancelled it secondary to the above. Since being here since 8 a.m., he states that his abdominal pain has resolved, and that he continues to have bilateral lower extremity weakness. In regard to his abdominal pain, he has never had pain like this before. It is unclear whether or not it was precipitated by food. He denies having any unusually dark or light-colored stools recently. He also denies having any recent exotic travel and/or exotic food consumption. His current complaints in the emergency department at this point in time, is bilateral lower extremity weakness. PAST MEDICAL HISTORY: Hypertension, back pain, allergies, hyperlipidemia, GERD , cervical stenosis status post fusion, lumbar stenosis status post laminectomy. PAST SURGICAL HISTORY: He had an anterior cervical fusion recently in December by Dr. Saxena. No history of any abdominal surgeries. FAMILY HISTORY: Noncontributory. REVIEW OF SYSTEMS: A full 10-point review was performed and, unless explicitly stated above, is otherwise negative. SOCIAL HISTORY: Lives with his . Is retired. Denies illicit drug use. PHYSICAL EXAM: VITAL SIGNS: Temperature 37.1, blood pressure 115/79, heart rate 104, he is 87% on room air. CONSTITUTIONAL: He is in no apparent distress. He appears comfortable, he is mentating appropriately. HEENT: Eyes : His pupils are equal, round, and reactive to light and accommodation. He has anicteric sclerae. His extraocular movements are intact. Ears, nose, mouth and throat: He has dry mucous membranes. His hearing appears normal. His ears are normal. He has no oral mucosal ulcers. CARDIOVASCULAR: He is hypertensive. He does appear to have a regular rate and rhythm without murmurs. RESPIRATORY: He has no respiratory distress. He has no rales or rhonchi. He is otherwise clear to auscultation. GI: He has normoactive bowel sounds. He is obese, soft, nondistended, nontender. No rebound tenderness. Negative Paez sign and no palpable masses. SKIN: Warm. Normal color without rashes or abrasions. MUSCULOSKELETAL: Again, weakness in bilateral lower extremities. No muscle tenderness with normal joint range of motion with the exception of the left shoulder. NEUROLOGIC: He is alert and oriented x3. His cranial nerves 2-12 are intact. He is mentating appropriately and he is not anxious. PSYCH: He is interacting appropriately. He is not encephalopathic. His thought process is linear. LYMPH, HEME AND IMMUNOLOGIC: No cervical, supraclavicular or groin lymphadenopathy appreciated. MEDICAL DECISION MAKING: White blood cell count normal at 9, although he does have a left shift to 86% neutrophils. Chemistries are unremarkable with the exception of an elevation of the AST and ALT to 504 and 100 respectively. He does have a high bilirubin, most of which is unconjugated, total bilirubin of 2.2, a direct fraction of 0.6. His alkaline phosphatase is normal. His lipase is normal. He has an ultrasound of his right upper quadrant, the images of which were personally reviewed by me, which show hepatic steatosis, a normal gallbladder wall, no stones, and possible sludge within the gallbladder with normal ductal architecture, without any pericholecystic fluid. ASSESSMENT/PLAN: A 71-year-old male, now with only bilateral lower extremity weakness and resolved abdominal pain. I discussed with the patient that his attack did sound like an attack of biliary colic. However, resolved at this point in time. I reviewed the images of his ultrasound; it does not appear at this point in time to be acute cholecystitis. He has really the only finding on it, is some sludge which is really unconcerning. In addition, his liver function enzymes are not classic for cholecystitis, either, as he has an elevation of his AST and ALT which are clearly more primary liver pathology enzymes rather than cholecystitis type enzymes; in addition to the fact that his pain is essentially resolved. My plan at this point in time would be defer to Neurosurgery as the patient's lower extremity weakness clearly is a more acute issue. He may definitely have a gallbladder problem, although clinically at this point in time, his abdomen is benign and really I do not see anything on his imaging to make me feel as though he needs an acute surgical intervention for his gallbladder. I will continue to follow along but would again defer to Neurosurgery for their management. If they plan to manage conservatively, my recommendations would be to see how the patient does with oral intake. If he has no recurrent abdominal pain with p.o. intake, to discharge him and he can follow up as an outpatient to discuss cholecystectomy on an elective basis. /[id number]/MODL MTDD
--- NOTE | 2017-03-27 20:02 | PDMN ---
Medical Necessity Medical necessity: C/M review: est. > 2 MN LOS for eval and TX of acute and persistent generalized weakness with abnormal gait of unclear etiology, abnormal MRI, elevated liver function tests, left hip pain requiring ongoing workup, acute inpt PT/OT, comorbid hypertension, sleep apnea with nocturnal hypoxemia, hyperlipidemia, history of spine disease with central stenosis and neuroforaminal narrowing throughout the spine, 12/2016 anterior decompression and spinal fusion per H/P.
[2017-03-27] MEDS: ACETAMINOPHEN 325 MG TAB PO PRN (20:08)
[2017-03-27] MEDS: ATORVASTATIN CALCIUM 10 MG TAB PO SCH (20:09)
[2017-03-27] MEDS: DULoxetine 60 MG CAP PO SCH (20:09)
[2017-03-27] MEDS: amLODIPine BESYLATE 5 MG TAB PO SCH (20:09)
[2017-03-27] MEDS ORDERED: NON-FORMULARY NEW DRUG (Simvastatin [Zocor] 20 MG) PO SCH (21:00)
--- NOTE | 2017-03-28 00:17 | GCON ---
[f rep st] CONSULTATION DATE OF CONSULTATION: 03/27/2017 HISTORY OF PRESENT ILLNESS: The patient is a 71-year-old male who presented to the emergency department due to lower extremity weakness and abdominal pain. He has a history of an anterior cervical diskectomy and fusion at C5-[address] Saxena on January 15, 2017. He also has a history of an L4-5 laminectomy in 2001 in a different state. He was scheduled this morning for a left rotator cuff repair; however, came to the emergency department due to difficulty ambulating from lower extremity weakness and left hip pain. He states his left hip pain has been present for the past couple of weeks and is there upon weightbearing. There was a drastic change in his lower extremity weakness over the last couple of days, and most notably, this morning. The patient was having difficulty even just walking out of his house to get to the car to drive to the surgery. He denies any radicular pain or lower extremity numbness and tingling. No loss of bowel or bladder control. He has also been experiencing abdominal pain. PAST MEDICAL HISTORY: Hypertension, chronic back pain, seasonal allergies, dyslipidemia, acid reflux, lumbar stenosis. PAST SURGICAL HISTORY: Hernia repair; ACDF, C5-6, December 2016; L4-5 laminectomy in 2001. FAMILY HISTORY: No pertinent neurosurgical family history. SOCIAL HISTORY: Patient is a nonsmoker. His son is a diesel engine assembler in [place]. REVIEW OF SYSTEMS: Patient denies any chest pain, shortness of breath, nausea, vomiting, constipation, diarrhea. Admits to abdominal pain. No lower extremity numbness or tingling. PHYSICAL EXAMINATION: GENERAL: Patient is seen and examined in the emergency room department. Appears to be in no apparent distress. Mood and affect are appropriate. Alert and oriented. VITAL SIGNS: Blood pressure 128/83, heart rate 92, respiratory rate 18, breathing 93% on room air. Temperature 37 degrees Celsius. NEUROLOGIC: Extraocular movements are intact. Pupils equal and reactive. Facial expression is symmetrical. Tongue has midline protrusion. Speech is fluent. Hearing is grossly intact. Muscle strength is well preserved at 5/5 except for limited ROM of the right shoulder with deltoid strength at 4-/5, and sensation is intact to light touch. EXTREMITIES: He has increased hip pain with internal and external rotation of the left hip. RESULTS: White count 9.07, hemoglobin 15.4, hematocrit 43.7, platelet count 270. PT 13. INR 0.96. PTT 31.2. Sodium 136, potassium 4.0, chloride 98, bicarb 25, BUN 16, creatinine 0.9. MRI of the cervical spine: Multilevel degenerative disk and degenerative joint disease. Levels of more significant central spinal canal narrowing are at C6-7 and C7-T1. There are multiple levels of moderate to severe neural foraminal narrowing. No severe central canal stenosis. MRI of the thoracic spine: Multilevel thoracic spondylosis with cord compression at 5 levels with mild flattening of the anterior cord, most significantly at T10-11 secondary to ligamentous hypertrophy. MRI of the lumbar spine: Multilevel degenerative disk and degenerative joint disease. Level of most significant central spinal canal narrowing is at L3-4. Multiple levels of severe neuroforaminal narrowing. ASSESSMENT AND PLAN: In summary, the patient is a 71-year-old male with a couple days of lower extremity weakness and left hip pain for the past few weeks upon weightbearing. MRI of the spine was reviewed by Dr. Garcia. He has multiple levels of severe neuroforaminal narrowing in the lumbar spine that could be contributing to his lower extremity weakness upon ambulating. However , on exam, he had increased hip pain with internal and external rotation of the left hip and thus some of the symptoms could be due to his hips. We will obtain an MRI of the left hip and pending results, may need an Orthopedic consult. On exam, his lower extremity strength is full at a 5/5. We will defer to Medicine for workup of his abdominal pain, and will continue to follow. Patient was seen and examined by myself and Dr. Garcia in the emergency room. NEUROSURGERY ATTENDING NOTE I met with the patient and his family in the ER and agree with the plan as above. I have also discussed his case with his surgeon, Dr Saxena, who is aware of his admission and agrees with the plan. /[id number]/MODL MTDD
[2017-03-28] MEDS: ACETAMINOPHEN 325 MG TAB PO PRN ×3 (03:19→21:44)
[2017-03-28 04:35] LABS: % IMMATURE GRANULYOCYTES 0.2 % (0.0-1.1); ABSOLUTE IMMATURE GRANULOCYTES 0.02 10^3/uL (0.00-0.10); ADD DIFF? NO; ADD MORPH? NO; ADD SCAN? NO; ATYPICAL LYMPHOCYTE FLAG 0 (0-99); FRAGMENT RBC FLAG 0 (0-99); HEMATOCRIT 40.4 % (40.0-51.0); HEMOGLOBIN 13.5 g/dL (13.7-17.5); LEFT SHIFT FLG 0 (0-99); LIPEMIA HEMOLYSIS FLAG 80 (0-99); MEAN CELL HEMOGLOBIN 32.4 pg (27.9-34.1); MEAN CELL HEMOGLOBIN CONCENTR. 33.4 g/dL (32.4-36.7); MEAN CELL VOLUME 96.9 fL (81.5-99.8); PLATELET CLUMPS FLAG 0 (0-99); PLATELET COUNT 240 10^3/uL (150-400); RED BLOOD CELL COUNT 4.17 10^6/uL (4.40-6.38); RED CELL DISTRIBUTION WIDTH 13.3 % (11.5-15.2)
[2017-03-28 04:55] LABS: ALANINE AMINOTRANSFERASE 321 IU/L (21-72); ALBUMIN 3.3 g/dL (3.5-5.0); ALKALINE PHOSPHATASE 91 IU/L (38-126); ANION GAP 9 mEq/L (8-16); ASPARTATE AMINOTRANSFERASE 192 IU/L (17-59); BILIRUBIN,TOTAL 1.6 mg/dL (0.1-1.4); CALCIUM 8.9 mg/dL (8.5-10.4); CARBON DIOXIDE 25 mEq/l (22-31); CHLORIDE 106 mEq/L (97-110); CREATININE 0.9 mg/dL (0.7-1.3); GLOMERULAR FILTRATION RATE > 60; GLUCOSE 106 mg/dL (70-100); POTASSIUM 3.9 mEq/L (3.5-5.2); SODIUM 140 mEq/L (134-144); TOTAL PROTEIN 5.7 g/dL (6.3-8.2)
--- NOTE | 2017-03-28 06:42 | NEUSURGPN ---
Assessment/Plan: Assessment: 71 yo male that is admitted to IM with LE weakness and left hip pain as well as Abd pain Plan: -pt with LLE pain and left hip pain-MRI of the L hip shows severe OA to the hip. Pt has Dr Landa as his ortho doctor -recommend Dr Landa to see pt-RN to call -pt was to have RTC surgery yesterday with Ortho -abdominal pain-defer to IM -MRI of the L spine shows some FS at multilevels -L spine xrays with F/E views ordered per Dr Huerta request -MRI of the brain shows white matter changes with ventriculomegaly-will d/w Dr Huerta -PT/OT-CPM -call with any questions or concerns -take medications as directed -d/w Dr Huerta Subjective: Awake and alert. NAD. No new complaints or concerns. No f/c/n/v/d. Objective: Awake and alert. AAO x 3 PERRLA/EOMI no droop CN 2-12 grossly intact +lt touch 5/5 BUE/BLE = except to left HF at 5-/5 due to pain Neuro Check Frequency: per routine Urinary Catheter in Place: No - Physician Discussed Patient with : [facility] Physical Exam - Vitals, I&O, Labs I and O 03/27/17 03/28/17 03/29/17 05:59 05:59 05:59 Intake Total 1000 Balance 1000 Weight 77.111 kg Intake: IV Infused (ml) 1000 Vital Signs Temp Pulse Resp BP Pulse Ox 36.5 C 87 16 98/68 L 92 03/28/17 04:21 03/28/17 04:21 03/28/17 04:21 03/28/17 04:21 03/28/17 04:21 Laboratory Results 03/28/17 04:10 03/28/17 04:10 ICD10 Worksheet Patient Problems: Problems Problem Status Onset Abdominal pain Acute Hyperbilirubinemia Acute Thoracic spondylitis Acute Thoracic spondylosis with cord compression Acute Transaminitis Acute Fusion of spine of cervical region Acute
--- NOTE | 2017-03-28 08:46 | HOSPPROG ---
Hospitalist Progress Note Assessment/Plan: # gait instability, shuffling gait - ventriculomegaly, multi-level spinal DJD, central stenosis, foraminal stenosis - appreciate nsg, neurology evals - PT/OT today # abd pain/transaminitis - recurrence of abd pain with PO today - most c/w biliary colic - appreciate gen surg eval # renal cyst - needs f/u, inpatient vs outpatient # L hip OA - Dr Moore notified per nsg # L shoulder - RTC surgery delayed d/t weakness # encephalopathy - seems slightly confused, unclear baseline # ZENY - CPAP # htn - norvasc # lovenox Subjective: recurrence of abd pain when eating Objective: Vital Signs Temp Pulse Resp BP Pulse Ox 36.6 C 99 16 136/88 H 90 L 03/28/17 07:39 03/28/17 07:39 03/28/17 07:39 03/28/17 07:39 03/28/17 07:39 Laboratory Results 03/28/17 04:10 03/28/17 04:10 03/27/17 03/28/17 03/29/17 05:59 05:59 05:59 Intake Total 1200 Balance 1200 PT 13.0 SEC (12.0-15.0) 03/27/17 09:29 INR 0.96 (0.83-1.16) 03/27/17 09:[address] Musa and Kevyn Melo MRIs, US reviewed - Physical Exam Constitutional: no apparent distress, appears nourished Cardiovascular: regular rate and rhythym, no murmur, rub, or gallop Respiratory: no respiratory distress, no rales or rhonchi, clear to auscultation Gastrointestinal: normoactive bowel sounds, other (soft, mild bilat upper quadrant abd pain), No guarding, No rebound, No distension Neurologic: other (shuffling gait) ICD10 Worksheet Patient Problems: Problems Problem Status Onset Fusion of spine of cervical region Acute Thoracic spondylitis Acute Thoracic spondylosis with cord compression Acute Hyperbilirubinemia Acute Transaminitis Acute Abdominal pain Acute
[2017-03-28] MEDS ORDERED: BECLOMETHASONE DIPROPIONATE EACHNARE SCH (09:00)
[2017-03-28] MEDS ORDERED: NS 1,000 ML IV SCH (09:30)
[2017-03-28] MEDS ORDERED: LR 1,000 ML IV SCH (09:30)
[2017-03-28] MEDS ORDERED: KETOROLAC 15 MG/1 ML SDV IVP ONE (10:59)
[2017-03-28] MEDS: PSYLLIUM METAMUCIL 1 PKT PO SCH (12:40)
[2017-03-28] MEDS: ASCORBIC ACID 500 MG TAB PO SCH (12:41)
[2017-03-28] MEDS: ENOXAPARIN 40 MG/0.4 ML SYR SC SCH (12:41)
--- NOTE | 2017-03-28 13:30 | NEUROPROG ---
Assessment: [id number] Neurology Consult CC: Shuffling Gait HPI: Pt whom had an anterior decompression and spinal fusion in December [address] Saxena for spinal stenosis noted it initially improved a problem with urinary incontinence and weakness. He has left hip pain but has noted for the past few days prior to admission some leg weakness and shuffling gait. He also complained of some abdominal pain that resolved on admission. He denied bowel/bladder changes or cognitive problems. He was admitted for this complaint on 03/27/17. Neurosurgery saw the patient and felt his left hip pain seemed to be the possible cause for his symptoms so recommend orthopedics consult but neurosurgery is continuing to evaluate the patient as well. His abdominal pain returned and his LFTs were abnormal so medicine service is investigating and general surgery has seen the patient. Neurology was consulted for the shuffling gait. I initially saw the patient on 03/28/17. When I evaluated the patient it appears his acute left hip pain was the primary cause of his poor gait. No signs of parkinsonian syndrome. PMHx: cervical degenerative disease with surgery December 2016, Lumbar surgery 2001, HLD, HTN, sleep apnea Home Meds: amlodipine, omeprazole, fexofenadine, duloxetine, beclomethasone, simvastatin SHx: son is nurse advocate FHx: son is healthy ROS: Pt denied acute fever, total vision loss, active severe chest pain, respiratory failure, total body severe rash, total bowel/bladder incontinence, psychosis, active seizures, or active bleeding O: VS reviewed General: Alert Eyes: Fundoscopic exam not able to visualize optic disks CV: Heart RRR, no murmur, no carotid bruit Lungs: Clear to auscultation bilaterally, no rhonci or rales Neuro: - Mental: . Oriented x person/place/date . concentration appears normal . speech fluency/comprehension normal . memory appears normal . fund of knowledge appear intact - Cranial Nerves: . II: PERRL, VFFTC . III/IV/: EOMI, no nystagmus, normal smooth pursuits, no Ptosis . V: facial sensation intact to LT . VII: face symmetric to eye closure and smile . VIII: hearing intact to conversation . IX/X: uvula raises symmetrically . XI: SCM 5/5 B/L strength . XII: tongue protrudes midline w/nl strength - Motor: . Tone: normal tone in all 4 extrem . Strength: normal in arms, right hip and B/L lower leg with normal strength but patient has left hip weakness that appears to be from pain - Reflexes: B/L bic/BR/patella 2/4 - Sensory: all 4 extrem intact to light touch - Coord: [id number] wnl - Gait: problems going from seated to standing that appears to be primarily related to left hip weakness and pain, this seems to be causing his gait disturbance Labs: 03/27/17- CBC wnl, CMP Tot Bili 2.2 AST 521 ALT 445 Rads: 03/27/17- Brain MRI w/o con: atrophy associated with ventriculomegaly, white matter disease, no acute changes (I personally visualized the images on 03/28/17) 03/27/17- MRI left hip: severe OA with small effusion 03/27/17- C-spine MRI w/o con: Multilevel degenerative disk and degenerative joint disease in the cervical spine. The levels of more significant central spinal canal narrowing are at C6-C7 and C7-T1. There are multiple levels of moderate to severe neural foraminal narrowing. Please see detailed description by level above. 03/27/17- T-spine MRI w/o con: Multilevel thoracic spondylosis with cord compression at 5 levels described in full report. Incompletely evaluated right renal cyst. Consider renal ultrasound to ensure that this completely represents a simple cyst. 03/27/17- L-spine MRI w/o con: Multilevel degenerative disk and degenerative joint disease of the lumbar spine. Level of most significant central spinal canal narrowing is at L3-L4. Multiple levels of severe neural foraminal narrowing. Please see detailed description by level above. Assessment: 1. Left hip weakness/pain: Neurologic exam on 03/28/17 shows left hip weakness with associated pain. Brain MRI on 03/27/17 showed atrophy with associated ventriculomegaly, age related white matter disease, but no acute problems. Total spine MRI on 03/27/17 shows multiple areas of moderate to severe degenerative changes. His left hip MRI on 03/27/17 showed severe hip OA w/small effusion. He also has abdominal pain with elevated LFTs. He has no clear signs of tremor, rigidity, or masked face to suggest parkinsonian syndrome. I suspect his gait problems is primarily from left hip pain/arthritis but his underlying degenerative spinal disease and acute abdominal pain with associated elevated LFTs may also be involved to some degree. We can further evaluate his symptoms with an outpatient EMG/NCS. I suspect he will improve dramatically when his left hip arthritis and abdominal pain/elevated LFTs are all well controlled. 2. Left Hip pain from arthritis: orthopedic consulted 3. Abdominal Pain, elevated LFTs: managed by hospitalist, general surgery has seen 4. Severe C/T/L spine degenerative disease with multiple prior surgeries 5. Ventriculomegaly associated with atrophy: this appears to be a benign finding from age related brain atrophy causing the ventriculomegaly. NPH is possible but seems less likely at this time. If he fails improve with addressing his other conditions we could always reconsider this diagnosis. Plan: - Agree with neurosurgery management - Agree with orthopedic consult for left hip arthritis - F/U in 1-3 weeks in neurology clinic for EMG/NCS of legs No further inpatient neurology w/u needed, neurology will sign off. Please call for any questions or any change in neurologic status. Objective: Vital Signs Temp Pulse Resp BP Pulse Ox 36.9 C 109 H 18 164/101 H 88 L 03/28/17 11:29 03/28/17 11:29 03/28/17 11:29 03/28/17 11:29 03/28/17 11:29 Laboratory Results 03/28/17 04:10 03/28/17 04:10 03/27/17 03/28/17 03/29/17 05:59 05:59 05:59 Intake Total 1200 Balance 1200 PT 13.0 SEC (12.0-15.0) 03/27/17 09:29 INR 0.96 (0.83-1.16) 03/27/17 09:29 Allergies/Adverse Reactions: cat dander Allergy (Verified 01/01/17 10:27) Sulfa (Sulfonamide Antibiotics) Allergy (Verified 03/27/17 14:04) Swelling/neck,face,throat
--- NOTE | 2017-03-28 14:00 | ASMTCMCOM ---
CM Note CM Note Notes: Pt came in for back and abdominal pain. Pt had a spinal fusion in Dec 2016. Pt has follow up woti his ortho MD for his shoulder and OA of hip. Neurology sign off (see note), neurosurgery consulting. CHart review indicates pt has a son in [place] and is slightly confused (unknown what pt baseline is). PT/OT evals pending to guide d/c planning. CM to follow. Date Signed: 03/28/2017 01:59 PM Electronically Signed By:MARIELA Ken
[2017-03-28] MEDS: DULoxetine 60 MG CAP PO SCH ×2 (15:16→21:44)
[2017-03-28] MEDS: FLUTICASONE NASAL 120 SPRAYS/16 GM MDI EACHNARE SCH (15:39)
--- NOTE | 2017-03-28 21:35 | SOAPPROG ---
SOAP Progress Note Assessment/Plan: Assessment: 71 yo with HIDA scan non filling gallbladder. elevated LFTs and abdominal tenderness Will take to OR for Lap efraín tomorrow around 11 am Risks and benefits discussed S: Feeling improved but still some abdominal pain O: Vague tenderness throughout abdomen Plan: 03/28/17 21:34 Objective: Vital Signs Temp Pulse Resp BP Pulse Ox 36.9 C 109 H 16 134/86 H 90 L 03/28/17 19:50 03/28/17 19:50 03/28/17 19:50 03/28/17 19:50 03/28/17 19:50 Laboratory Results 03/28/17 04:10 03/28/17 04:10 03/27/17 03/28/17 03/29/17 05:59 05:59 05:59 Intake Total 1200 Balance 1200 PT 13.0 SEC (12.0-15.0) 03/27/17 09:29 INR 0.96 (0.83-1.16) 03/27/17 09:29 ICD10 Worksheet Patient Problems: Problems Problem Status Onset Abdominal pain Acute Hyperbilirubinemia Acute Thoracic spondylitis Acute Thoracic spondylosis with cord compression Acute Transaminitis Acute Fusion of spine of cervical region Acute
[2017-03-28] MEDS: amLODIPine BESYLATE 5 MG TAB PO SCH (21:43)
[2017-03-28] MEDS: ATORVASTATIN CALCIUM 10 MG TAB PO SCH (21:43)
[2017-03-29 04:56] LABS: % IMMATURE GRANULYOCYTES 0.3 % (0.0-1.1); ABSOLUTE IMMATURE GRANULOCYTES 0.02 10^3/uL (0.00-0.10); ADD DIFF? NO; ADD MORPH? NO; ADD SCAN? NO; ATYPICAL LYMPHOCYTE FLAG 0 (0-99); FRAGMENT RBC FLAG 0 (0-99); HEMOGLOBIN 13.1 g/dL (13.7-17.5); LEFT SHIFT FLG 0 (0-99); LIPEMIA HEMOLYSIS FLAG 80 (0-99); MEAN CELL HEMOGLOBIN 32.6 pg (27.9-34.1); MEAN CELL HEMOGLOBIN CONCENTR. 33.6 g/dL (32.4-36.7); MEAN PLATELET VOLUME 10.1 fL (8.7-11.7); PLATELET CLUMPS FLAG 0 (0-99); PLATELET COUNT 210 10^3/uL (150-400); RED BLOOD CELL COUNT 4.02 10^6/uL (4.40-6.38)
[2017-03-29 05:11] LABS: ALANINE AMINOTRANSFERASE 197 IU/L (21-72); ALBUMIN 3.1 g/dL (3.5-5.0); ALKALINE PHOSPHATASE 102 IU/L (38-126); ANION GAP 9 mEq/L (8-16); ASPARTATE AMINOTRANSFERASE 78 IU/L (17-59); BILIRUBIN,TOTAL 1.1 mg/dL (0.1-1.4); CALCIUM 8.9 mg/dL (8.5-10.4); CARBON DIOXIDE 23 mEq/l (22-31); CHLORIDE 106 mEq/L (97-110); CREATININE 0.7 mg/dL (0.7-1.3); GLOMERULAR FILTRATION RATE > 60; GLUCOSE 90 mg/dL (70-100); POTASSIUM 3.8 mEq/L (3.5-5.2); SODIUM 138 mEq/L (134-144); TOTAL PROTEIN 5.5 g/dL (6.3-8.2)
[2017-03-29] MEDS: PSYLLIUM METAMUCIL 1 PKT PO SCH (07:18)
[2017-03-29] MEDS: DULoxetine 60 MG CAP PO SCH ×2 (07:18→21:32)
[2017-03-29] MEDS: ASCORBIC ACID 500 MG TAB PO SCH (07:18)
--- NOTE | 2017-03-29 07:42 | NEUSURGPN ---
Assessment/Plan: Assessment: 71 yo male that is admitted to IM with LE weakness and left hip pain as well as abd pain Plan: -pt with LLE pain and left hip pain-MRI of the L hip shows severe OA to the hip. Pt has Dr Landa as his ortho doctor -recommend Dr Landa to see pt-RN to call, I called again today and spoke with the supply and distribution manager service to have Dr Sutherland to call me back 03/29/17 at 0740 am-spoke with Dr Sutherland at 0755 -pt was to have RTC surgery 2 days ago with Ortho -Neurology saw patient as well and agreed that hip as likely issue -L spine xrays show no instability but significant DDD and scoliosis/spondy as well-Dr Huerta has surgery planned in future but would wait until hip is treated as well as after today's lap efraín -abdominal pain-defer to IM and general surgery on board-going for lap efraín today with Dr Garcia -MRI of the L spine shows some FS at multilevels -MRI of the brain shows white matter changes with ventriculomegaly-Neurology evaluated-no treatment recommended at this time -PT/OT-CPM -d/w pt and family and updated-agree with plan at this time -call with any questions or concerns -take medications as directed -d/w Dr Huerta Subjective: Awake and alert. NAD. NPO at this time. No guan/neck/cp/sob or gu complaints. No f/c/n/v/d. Objective: Awake and alert. AAO x 3 PERRLA/EOMI no droop CN 2-12 grossly intact +lt touch 5/5 BUE/BLE = except to left HF at 5-/5 due to pain Neuro Check Frequency: per routine Urinary Catheter in Place: No - Physician Discussed Patient with : [facility] Physical Exam - Vitals, I&O, Labs I and O 03/28/17 03/29/17 03/30/17 05:59 05:59 05:59 Intake Total 1200 1350 Balance 1200 1350 Weight 77.111 kg Intake: Oral (ml) 200 400 IV Infused (ml) 1000 950 Lr 1,000 ml @ 100 mls/hr 950 IV CONT MEGAN Rx#: [id number] Other: Intake Quantity Yes Sufficient Number of Voids Incontinence 1 Toilet 1 Vital Signs Temp Pulse Resp BP Pulse Ox 37.3 C 84 18 131/87 H 93 03/29/17 07:15 03/29/17 07:15 03/29/17 07:15 03/29/17 07:15 03/29/17 07:15 Laboratory Results 03/29/17 04:09 03/29/17 04:09 ICD10 Worksheet Patient Problems: Problems Problem Status Onset Abdominal pain Acute Hyperbilirubinemia Acute Thoracic spondylitis Acute Thoracic spondylosis with cord compression Acute Transaminitis Acute Fusion of spine of cervical region Acute
[2017-03-29] MEDS: FLUTICASONE NASAL 120 SPRAYS/16 GM MDI EACHNARE SCH (08:59)
[2017-03-29] MEDS ORDERED: LR 1,000 ML IV SCH (09:00)
--- NOTE | 2017-03-29 10:07 | GCON ---
[f rep st] CONSULTATION DATE OF CONSULTATION: 03/29/2017 CHIEF COMPLAINT: Left hip pain. HISTORY OF PRESENT ILLNESS: This is a 71-year-old gentleman with history of cervical spine disease, lumbar spine disease. He had lumbar spine surgery about 10 years ago, and had a recent cervical spin e surgery with Dr. Saxena a few months ago. He has also had some falls at [facility] and had injured his rotator cuff. He had seen Dr. Landa, who had him scheduled for a rotator cuff surgery 2 days ago. However, he awoke the day of surgery and was having more significant pain in his left groin. He was able to bear weight, but was having difficulty ambulating and he presented to the hospital. He was a dmitted to the hospital. He has also been diagnosed with acute cholecystitis, and is having a laparo scopic cholecystectomy today. He says that over the last few days his hip and groin pain were more s evere than they had been in the past. He had some hip and groin pain while doing the therapy for the past few months however. This actually does feel better today, he states. He denies any recent fal l on the hip. Denies radiating symptoms down the leg or in the back. PAST MEDICAL HISTORY: Spine disease, central cord stenosis throughout the spine, hyperlipidemia, hyp ertension, sleep apnea. ALLERGIES: Sulfa. MEDICATIONS: Home medications: Vitamin C, Tylenol, omeprazole, Skelaxin, beclomethasone, fexofenadi ne, duloxetine, simvastatin. SOCIAL HISTORY: He does not smoke or drink alcohol. FAMILY HISTORY: Reviewed and noncontributory. REVIEW OF SYSTEMS: A 10-point review of systems was performed and negative other than above. PHYSICAL EXAMINATION: GENERAL: He is alert, oriented, appropriate. He is in no acute distress. He is sitting in a chair today. HEAD: Normocephalic, atraumatic. EYES: Equal and reactive. MOUTH: Goldie ws moist mucous membranes. NECK: Supple. CHEST: Shows symmetric chest rise. LUNGS: Clear. HEAR T: Regular rate and rhythm. ABDOMEN: Diffusely tender. EXTREMITIES: His upper extremities he mov es well without abnormality. Exam of lower extremities, he can stand and walk with the help of a wal ker. He is able to bear weight on the left side. He seems to do this reasonably well. Exam of the left hip shows 0 degrees internal rotation, pain, impingement with internal rotation, 45 degrees exte rnal rotation, pain, impingement with this. He describes pain in the groin. His knee and ankle show no abnormality. He has 5/5 strength in his bilateral lower extremities. Hip flexion, abduction kne e extension, ankle dorsiflexion, plantar flexion, EHL, FHL of right hip shows a somewhat similar rang e of motion, but is nonpainful. IMAGING: I reviewed his plain films, as well as hip MRI. The plain film is nonweightbearing, but do es show moderate hip DJD in the left hip. His MRI shows moderate to severe hip DJD labral tearing an d impingement. There is no acute fracture seen, or no acute collapse. ASSESSMENT: Left hip degenerative joint disease with arthritic flare. PLAN: I discussed the nature of his condition, and treatment options with he and his family. He is actually doing a fair amount better with his hip pain today. He is to get his gallbladder removed to day. He will focus on this for now. I discussed given his imaging and his symptoms, he will likely need a total hip replacement. If he is going to have this in the near future, I would not order a st eroid injection in his hip. I would like to see how he recovers with the cholecystectomy. He is als o having significant rotator cuff issues. Depending on which is worse in the coming days, he may brooke ct to have his rotator cuff operated on, as previously scheduled, or he may postpone and have an elec tive total hip performed. I think he would likely go home and recover from his cholecystectomy, and come back for an elective total hip replacement, as he is able to ambulate. We will follow him while he is in the hospital. /[id number]/MODL
--- NOTE | 2017-03-29 10:57 | HOSPPROG ---
Hospitalist Progress Note Assessment/Plan: # gait instability, shuffling gait - ventriculomegaly, multi-level spinal DJD, central stenosis, foraminal stenosis - appreciate nsg, neurology evals - more likely d/t R hip OA and GB pathology - PT/OT today # cholecystitis - lap efraín today per Dr Garcia # renal cyst - needs f/u, inpatient vs outpatient # L hip OA - will need JORDAN, timing TBD around lap efraín, rotator cuff issues # L shoulder - rotator cuff surgery delayed d/t weakness # encephalopathy - improved # ZENY - CPAP # htn - norvasc # lovenox Subjective: ready for cholecystectomy; ongoing L hip pain Objective: Vital Signs Temp Pulse Resp BP Pulse Ox 36.9 C 98 18 140/96 H 91 L 03/29/17 09:03 03/29/17 09:03 03/29/17 09:03 03/29/17 09:03 03/29/17 09:03 Laboratory Results 03/29/17 04:09 03/29/17 04:09 03/28/17 03/29/17 03/30/17 05:59 05:59 05:59 Intake Total 1200 1350 Balance 1200 1350 PT 13.0 SEC (12.0-15.0) 03/27/17 09:29 INR 0.96 (0.83-1.16) 03/27/17 09:29 pelvic XR reviewed chart reviewed including Dr Sutherland's consult HIDA reviewed ICD10 Worksheet Patient Problems: Problems Problem Status Onset Fusion of spine of cervical region Acute Thoracic spondylitis Acute Thoracic spondylosis with cord compression Acute Hyperbilirubinemia Acute Transaminitis Acute Abdominal pain Acute
[2017-03-29] MEDS ORDERED: ceFAZolin 2 GM/SWFI 20 ML SYR IVP ONE (11:00)
[2017-03-29] MEDS ORDERED: MIDAZOLAM 2 MG/2 ML VIAL IVP ONE (11:12)
--- NOTE | 2017-03-29 11:12 | PDANEPAE ---
ANE History of Present Illness cholelithiasis s/f lap efraín with grams ANE Past Medical History - Cardiovascular History Hx Hypertension: Yes Hx Arrhythmias: No Hx Chest Pain: No Hx Coronary Artery / Peripheral Vascular Disease: No Hx CHF / Valvular Disease: No Hx Palpitations: No Cardiovascular History Comment: RECENT BP ELEVATION - Pulmonary History Hx COPD: No Hx Asthma/Reactive Airway Disease: No Hx Recent Upper Respiratory Infection: No Hx Oxygen in Use at Home: Yes O2 in Use at Home (L/minute): 2L with CPAP Hx Sleep Apnea: Yes Sleep Apnea Screening Result - Last Documented: Positive Pulmonary History Comment: ASTHMA W/ALLERGIES - CATS DANDER & DUST - Neurologic History Hx Cerebrovascular Accident: No Hx Seizures: No Hx Dementia: No - Endocrine History Hx Diabetes: No - Renal History Hx Renal Disorders: No Renal History Comment: BLADDER CONTROL - Liver History Hx Hepatic Disorders: No - Neurological & Psychiatric Hx Hx Neurological and Psychiatric Disorders: No Neurological / Psychiatric History Comment: CYMBALTA FOR BACK PAIN - Cancer History Hx Cancer: No - Congenital Disorder History Hx Congenital Disorders: No - GI History Hx Gastrointestinal Disorders: Yes Gastrointestinal History Comment: OCCAS ACID REFLUX - Other Health History Other Health History: NEG - Chronic Pain History Chronic Pain: Yes (BACK PAIN) - Surgical History Prior Surgeries: HERNIA REPAIR. EYE SURGERY CHILDHOOD ANE Review of Systems Review of Systems: - Exercise capacity METS (RN): 4 METS ANE Patient History - Allergies Allergies/Adverse Reactions: cat dander Allergy (Verified 01/01/17 10:27) Sulfite Allergy (Uncoded 03/29/17 10:20) - Home Medications Home medications: home medication list seen and reviewed Home Medications: DULoxetine [Cymbalta 60 MG (*)] 60 mg PO BID 01/01/17 [Last Taken 03/26/17 09:00 ] Omeprazole [Prilosec 20 mg] 20 mg PO DAILY PRN 01/01/17 [Last Taken 03/25/17] Simvastatin [Zocor] 20 mg PO HS 01/01/17 [Last Taken 03/25/17] Acetaminophen [Tylenol ES 500 mg (*)] 1,000 mg PO DAILY PRN 01/15/17 [Last Taken 03/26/17] Ascorbic Acid [Vitamin C 500 mg (*)] 500 mg PO DAILY 01/15/17 [Last Taken Unknown] Beclomethasone Dipropionate [Qnasl] 1 spray EACHNARE DAILY 01/15/17 [Last Taken 03/26/17] Fexofenadine HCl [[place] Allergy] 180 mg PO DAILY PRN 01/15/17 [Last Taken Unknown] Metaxalone [Skelaxin 800 mg (*)] 800 mg PO BID PRN 01/15/17 [Last Taken 2 Weeks Ago ~01/01/17] Psyllium Husk (with Sugar) [Metamucil Packet] 1 each PO DAILY 03/27/17 [Last Taken 03/26/17] amLODIPine BESYLATE [Norvasc 5 mg (*)] 5 mg PO HS 03/27/17 [Last Taken 03/25/17] - NPO status NPO Status: no food or drink >8 hours NPO Since - Liquids (Date): 03/29/17 NPO Since - Liquids (Time): 00:00 NPO Since - Solids (Date): 03/29/17 NPO Since - Solids (Time): 18:00 - Anes Hx Anes Hx: no prior problems - Smoking Hx Smoking Status: Former smoker - Alcohol Use Alcohol Use: Other (2-3 nightly) - Family Anes Hx Family Anes Hx: none Family Hx Anesthesia Complications: NEG ANE Labs/Vital Signs - Labs Result Diagrams: 03/29/17 04:09 03/29/17 04:09 - Vital Signs Blood Pressure: 140/96 Heart Rate: 98 Respiratory Rate: 18 O2 Sat (%): 91 Height: 170.18 cm Weight: 77.111 kg ANE Physical Exam - Airway Mallampati Score: Class 2 Mouth exam: normal dental/mouth exam, sotelo - Pulmonary Pulmonary: no respiratory distress - Cardiovascular Cardiovascular: regular rate and rhythym - ASA Status ASA Status: II ANE Anesthesia Plan Anesthesia Plan: general endotracheal anesthesia
[2017-03-29] MEDS ORDERED: BUPIVACAINE 0.5% 30 ML SDV ONE (11:17)
[2017-03-29] MEDS ORDERED: IOPAMIDOL (ISOVUE-300) 150 ML BTL ONE ×2 (11:18→12:26)
[2017-03-29] MEDS ORDERED: MIDAZOLAM 2 MG/2 ML VIAL ONE (11:24)
[2017-03-29] MEDS ORDERED: fentaNYL 100 MCG/2 ML INJ ONE ×2 (11:33→14:16)
[2017-03-29] MEDS ORDERED: LIDOCAINE 2% 100 MG/5 ML SYR ONE (11:34)
[2017-03-29] MEDS ORDERED: ONDANSETRON 4 MG/2 ML VIAL ONE ×2 (11:34→13:20)
[2017-03-29] MEDS ORDERED: PROPOFOL/EMULSION 500 MG/50 ML BOTTLE IV ONE (11:34)
[2017-03-29] MEDS ORDERED: DEXAMETHASONE 4 MG/ML VIAL ONE ×2 (11:34)
[2017-03-29] MEDS ORDERED: ROCURONIUM 50 MG/5 ML VIAL ONE ×2 (11:34→12:19)
[2017-03-29] MEDS ORDERED: LIDOCAINE HCL 160 MG/4 ML LTA KIT TP ONE (11:38)
[2017-03-29] MEDS ORDERED: epHEDrine SULFATE 10 MG/ML SYR ONE ×2 (11:52)
[2017-03-29] MEDS ORDERED: PHENYLEPHRINE HCL 100 MCG/ML SYR ONE (12:00)
[2017-03-29] MEDS ORDERED: METOCLOPRAMIDE 10 MG/2 ML VIAL IVP PRN (13:06)
[2017-03-29] MEDS ORDERED: LABETALOL HCL 5 MG/ML 20 ML MDV IVP PRN (13:06)
[2017-03-29] MEDS ORDERED: ALBUTEROL 3 ML DEYVIAL IH PRN (13:06)
[2017-03-29] MEDS ORDERED: OXYCODONE/APAP 5/325 TAB PO PRN (13:06)
[2017-03-29] MEDS ORDERED: MEPERIDINE 25 MG/ML SYR IVP PRN (13:06)
[2017-03-29] MEDS ORDERED: ONDANSETRON 4 MG/2 ML VIAL IVP PRN (13:06)
[2017-03-29] MEDS ORDERED: PHENYLEPHRINE HCL 100 MCG/ML SYR IVP PRN (13:06)
[2017-03-29] MEDS ORDERED: LR 500 ML IV PRN (13:06)
[2017-03-29] MEDS ORDERED: NALOXONE HCL 0.4 MG/ML INJ IVP PRN (13:06)
[2017-03-29] MEDS ORDERED: ACETAMINOPHEN 500 MG TAB PO PRN (13:06)
[2017-03-29] MEDS ORDERED: HYDROCODONE/APAP 5/325 TAB PO PRN (13:06)
[2017-03-29] MEDS ORDERED: DEXAMETHASONE 4 MG/ML VIAL IVP PRN (13:06)
[2017-03-29] MEDS ORDERED: PROMETHAZINE HCL 25 MG/ML INJ IVP PRN (13:06)
[2017-03-29] MEDS ORDERED: PROPOFOL 200 MG/20 ML VIAL ONE (13:12)
[2017-03-29] MEDS ORDERED: SUGAMMADEX SODIUM 200 MG/2 ML VIAL IVP ONE (13:20)
--- NOTE | 2017-03-29 13:28 | POSTOPPROG ---
Post Op Note Date of Operation: 03/29/17 Surgeon: Symone Garcia Orthotic And Prosthetic Technician: bryce Anesthesiologist: gina Anesthesia: GET(General Endotracheal) Pre-op Diagnosis: nonfilling gallbladder Post-op Diagnosis: acute calculous cholecystitis Indication: acute abd pain and nonfilling gallbladder on HIDA Procedure: lap efraín with IOC Findings: very inflammed gallbladder, no CBD stone Inf/Abcess present in the surg proc area at time of surgery?: Yes Depth: Organ Space EBL: 50-100 Specimen(s): gallbladder
[2017-03-29] MEDS: fentaNYL 100 MCG/2 ML INJ IVP PRN ×3 (14:21→14:32)
--- NOTE | 2017-03-29 14:49 | ASMTCMCOM ---
CM Note CM Note Notes: Pt went for lap efraín today. DC needs not clear at this time. Met w/pt's Norma while pt was in surgery. Per norma he will have ortho consult tomorrow and possible hip surgery pending. Pt and live in [place]; they have supportive son who is garnetter and lives in [facility]. They have used [facility] in past and would like to use them again if HHC needed. We also discussed the possibility of rehab and senior blue book given. ROBERT w/f. Date Signed: 03/29/2017 02:49 PM Electronically Signed By:Chelsey Castillo RN
--- NOTE | 2017-03-29 15:46 | POSTANESTH ---
Post Anesthetic Evaluation Cardiovascular Status: Normal, Stable Respiratory Status: Similar to Pre-op Cond., Tx Decrease in SpO2 Level of Consciousness/Mental Status: Can Participate in Eval Pain Control: Adequate, Prn Tx Ordered Nausea/Vomiting Control: Adequate, Prn Tx Ordered Complications Possibly Related to Anesthesia: None Noted
[2017-03-29] MEDS ORDERED: FUROSEMIDE 40 MG/4 ML VIAL IVP ONE (17:11)
[2017-03-29] MEDS ORDERED: IOPAMIDOL (ISOVUE 370) 100 ML BTL IV ONE (18:10)
--- NOTE | 2017-03-29 18:38 | HOSPPROG ---
Hospitalist Progress Note Assessment/Plan: Called by RN for worsening respiratory status post-op; describes epigastric pain with deep inspiration. PE: afebrile, HR 110-120; 95% on 10L oxymask bilat basilar rales abd S, TTP epigastrum CXR: vascular crowding vs pulm edema Plan: - lasix 40 IV x 1 - check ECG - improve pain control - may be an element of splinting from abdominal pain - vte ppx held irvin-operatively - check CTA - discussed with Vanessa Boudreaux (first call for practice overnight); surgery confined to RUQ; acute cholecystitis - since giving contrast for CTA, will check CT abd/pelvis knowing that this may be difficult to interpret - check BMP at 10p - recheck renal function with lasix and contrast; if worsening, consider IV fluids cautiously - transfer to SDU 40 minutes cc time Objective: Vital Signs Temp Pulse Resp BP Pulse Ox 36.5 C 126 H 16 158/104 H 100 03/29/17 15:22 03/29/17 18:26 03/29/17 16:45 03/29/17 16:45 03/29/17 18:26 Laboratory Results 03/29/17 04:09 03/29/17 04:09 03/28/17 03/29/17 03/30/17 05:59 05:59 05:59 Intake Total 1200 1350 1350 Output Total 700 Balance 1200 1350 650 PT 13.0 SEC (12.0-15.0) 03/27/17 09:29 INR 0.96 (0.83-1.16) 03/27/17 09:29 ICD10 Worksheet Patient Problems: Problems Problem Status Onset Fusion of spine of cervical region Acute Thoracic spondylitis Acute Thoracic spondylosis with cord compression Acute Hyperbilirubinemia Acute Transaminitis Acute Abdominal pain Acute
--- NOTE | 2017-03-29 18:40 | CPEKG ---
Heart Rate: 116 RR Interval: 517 P-R Interval: 160 QRSD Interval: 76 QT Interval: 308 QTC Interval: 428 P [place]: 25 QRS [place]: -37 T Wave [place]: 44 EKG Severity - BORDERLINE ECG - EKG Impression: SINUS TACHYCARDIA EKG Impression: PROBABLE LEFT ATRIAL ABNORMALITY EKG Impression: LEFT AXIS DEVIATION Electronically Signed By: Jin Bowling 29-Mar-2017 22:28:11
[2017-03-29] MEDS ORDERED: ceFAZolin 2 GM/SWFI 2 GM/20 ML SYR IVP ONE (19:37)
[2017-03-29 20:54] LABS: ALANINE AMINOTRANSFERASE 214 IU/L (21-72); ALBUMIN 3.8 g/dL (3.5-5.0); ALKALINE PHOSPHATASE 125 IU/L (38-126); ANION GAP 15 mEq/L (8-16); ASPARTATE AMINOTRANSFERASE 134 IU/L (17-59); BILIRUBIN,TOTAL 0.9 mg/dL (0.1-1.4); CALCIUM 9.4 mg/dL (8.5-10.4); CARBON DIOXIDE 26 mEq/l (22-31); CHLORIDE 95 mEq/L (97-110); CREATININE 0.9 mg/dL (0.7-1.3); GLOMERULAR FILTRATION RATE > 60; GLUCOSE 133 mg/dL (70-100); POTASSIUM 4.4 mEq/L (3.5-5.2); SODIUM 136 mEq/L (134-144); TOTAL PROTEIN 6.7 g/dL (6.3-8.2)
[2017-03-29 20:59] LABS: % IMMATURE GRANULYOCYTES 0.2 % (0.0-1.1); ABSOLUTE IMMATURE GRANULOCYTES 0.02 10^3/uL (0.00-0.10); ADD DIFF? NO; ADD MORPH? NO; ADD SCAN? NO; ATYPICAL LYMPHOCYTE FLAG 0 (0-99); FRAGMENT RBC FLAG 0 (0-99); HEMATOCRIT 43.4 % (40.0-51.0); LEFT SHIFT FLG 10 (0-99); LIPEMIA HEMOLYSIS FLAG 90 (0-99); MEAN CELL HEMOGLOBIN CONCENTR. 34.6 g/dL (32.4-36.7); MEAN CELL VOLUME 95.6 fL (81.5-99.8); MEAN PLATELET VOLUME 10.1 fL (8.7-11.7); PLATELET CLUMPS FLAG 0 (0-99); PLATELET COUNT 253 10^3/uL (150-400); RED BLOOD CELL COUNT 4.54 10^6/uL (4.40-6.38); RED CELL DISTRIBUTION WIDTH 12.8 % (11.5-15.2)
[2017-03-29] MEDS: ATORVASTATIN CALCIUM 10 MG TAB PO SCH (21:31)
[2017-03-29] MEDS: AMOXICILLIN/CLAVULANATE POT 875/125 MG TAB PO SCH (21:32)
[2017-03-29] MEDS: amLODIPine BESYLATE 5 MG TAB PO SCH (21:32)
[2017-03-29] MEDS: ACETAMINOPHEN 325 MG TAB PO PRN (22:16)
[2017-03-30 05:48] LABS: % IMMATURE GRANULYOCYTES 0.3 % (0.0-1.1); ABSOLUTE IMMATURE GRANULOCYTES 0.03 10^3/uL (0.00-0.10); ADD DIFF? NO; ADD MORPH? NO; ADD SCAN? NO; ATYPICAL LYMPHOCYTE FLAG 0 (0-99); FRAGMENT RBC FLAG 0 (0-99); HEMOGLOBIN 14.8 g/dL (13.7-17.5); LEFT SHIFT FLG 0 (0-99); LIPEMIA HEMOLYSIS FLAG 90 (0-99); MEAN CELL HEMOGLOBIN 32.5 pg (27.9-34.1); MEAN CELL HEMOGLOBIN CONCENTR. 34.4 g/dL (32.4-36.7); MEAN CELL VOLUME 94.5 fL (81.5-99.8); PLATELET CLUMPS FLAG 0 (0-99); PLATELET COUNT 255 10^3/uL (150-400); RED BLOOD CELL COUNT 4.55 10^6/uL (4.40-6.38); RED CELL DISTRIBUTION WIDTH 12.9 % (11.5-15.2)
[2017-03-30 06:06] LABS: ALANINE AMINOTRANSFERASE 195 IU/L (21-72); ALBUMIN 3.7 g/dL (3.5-5.0); ALKALINE PHOSPHATASE 119 IU/L (38-126); ANION GAP 15 mEq/L (8-16); ASPARTATE AMINOTRANSFERASE 112 IU/L (17-59); BILIRUBIN,TOTAL 0.8 mg/dL (0.1-1.4); CALCIUM 9.2 mg/dL (8.5-10.4); CARBON DIOXIDE 28 mEq/l (22-31); CHLORIDE 96 mEq/L (97-110); CREATININE 0.8 mg/dL (0.7-1.3); GLOMERULAR FILTRATION RATE > 60; GLUCOSE 123 mg/dL (70-100); POTASSIUM 4.3 mEq/L (3.5-5.2); SODIUM 139 mEq/L (134-144); TOTAL PROTEIN 6.8 g/dL (6.3-8.2)
[2017-03-30] MEDS: ACETAMINOPHEN 325 MG TAB PO PRN ×3 (07:10→20:49)
--- NOTE | 2017-03-30 07:49 | NEUSURGPN ---
Assessment/Plan: Assessment: 71 yo male that is admitted to with LE weakness and left hip pain as well as abd pain Plan: -Patient with LLE pain and left hip pain-MRI of the L hip shows severe OA to the hip. Pt has Dr Landa as his ortho doctor -Patient was to have RTC surgery 3 days ago with Ortho -Neurology saw patient as well and agreed that hip as likely issue -Lumbar spine xrays show no instability but significant DDD and scoliosis/ spondy as well-Dr Huerta has surgery planned in future but would wait until hip is treated -Patient is s/p lap efraín with Dr Garcia yesterday -MRI of the L spine shows some FS at multilevels -MRI of the brain shows white matter changes with ventriculomegaly-Neurology evaluated-no treatment recommended at this time -PT/OT-CPM -Neurosurgery will sign off today, please call with any questions/concerns. Patient is scheduled to follow up with Dr Huerta on 04/29/17 -Discussed with Dr Huerta Subjective: Patient doing well this am, waiting for a orthopedic surgery Objective: Awake and alert. AAO x 3 PERRLA/EOMI no droop CN 2-12 grossly intact +lt touch 5/5 BUE/BLE = except to left HF at 4/5 due to pain and left plantar ext 5- Neuro Check Frequency: per routine Urinary Catheter in Place: No - Physician Discussed Patient with : [facility] Physical Exam - Vitals, I&O, Labs I and O 03/29/17 03/30/17 03/31/17 05:59 05:59 05:59 Intake Total 1350 2332 Output Total 3000 Balance 1350 -668 Weight 78 kg Intake: Oral (ml) 400 650 IV Intake (ml) 1200 IV Infused (ml) 950 482 Lr 1,000 ml @ 100 mls/hr 950 482 IV CONT MEGAN Rx#: [id number] Output: Urine (ml) 3000 Catheter 1400 Incontinence 200 Toilet 250 Urinal 1150 Other: Intake Quantity Yes Yes Sufficient Number of Voids Incontinence 1 Toilet 1 Urinal 3 Vital Signs Temp Pulse Resp BP Pulse Ox 36.6 C 94 15 133/90 H 95 03/30/17 07:39 03/30/17 07:39 03/30/17 07:39 03/30/17 07:39 03/30/17 07:39 Laboratory Results 03/30/17 05:20 03/30/17 05:20 ICD10 Worksheet Patient Problems: Problems Problem Status Onset Abdominal pain Acute Hyperbilirubinemia Acute Thoracic spondylitis Acute Thoracic spondylosis with cord compression Acute Transaminitis Acute Fusion of spine of cervical region Acute
--- NOTE | 2017-03-30 08:40 | HOSPPROG ---
Hospitalist Progress Note Assessment/Plan: # gait instability, shuffling gait, weakness - at this point, suspect most likely d/t acute cholecystitis - follow post-cholecystectomy and mobilize today # acute cholecystitis s/p lap efraín 03/[address] Garcia - abx PO # acute resp failure post-op - suspect d/t splinting/atelectasis from abd issues - overall improving today - start IS # renal cyst - needs f/u, inpatient vs outpatient # L hip OA - will need JORDAN, timing TBD around lap efraín, rotator cuff issues # L shoulder - rotator cuff surgery delayed d/t weakness # encephalopathy - improved # ZENY - CPAP # htn - norvasc # lovenox Subjective: doing much better this am; still c/o abd pain described as "incisional" Objective: Vital Signs Temp Pulse Resp BP Pulse Ox 36.6 C 94 15 133/90 H 95 03/30/17 07:39 03/30/17 07:39 03/30/17 07:39 03/30/17 07:39 03/30/17 07:39 Laboratory Results 03/30/17 05:20 03/30/17 05:20 03/29/17 03/30/17 03/31/17 05:59 05:59 05:59 Intake Total 1350 2332 Output Total 3000 Balance 1350 -668 PT 13.0 SEC (12.0-15.0) 03/27/17 09:29 INR 0.96 (0.83-1.16) 03/27/17 09:29 CT C/A/P reviewed high risk - Physical Exam Constitutional: no apparent distress, appears nourished Cardiovascular: regular rate and rhythym, no murmur, rub, or gallop Respiratory: no respiratory distress, other (diminished bilat basilar BS) Gastrointestinal: normoactive bowel sounds, soft, non-tender abdomen, no palpable masses, other (two small incisions) ICD10 Worksheet Patient Problems: Problems Problem Status Onset Fusion of spine of cervical region Acute Thoracic spondylitis Acute Thoracic spondylosis with cord compression Acute Hyperbilirubinemia Acute Transaminitis Acute Abdominal pain Acute
[2017-03-30] MEDS: DULoxetine 60 MG CAP PO SCH ×2 (10:40→20:50)
[2017-03-30] MEDS: AMOXICILLIN/CLAVULANATE POT 875/125 MG TAB PO SCH ×2 (10:40→20:52)
[2017-03-30] MEDS: ASCORBIC ACID 500 MG TAB PO SCH (10:40)
[2017-03-30] MEDS: PSYLLIUM METAMUCIL 1 PKT PO SCH (10:40)
[2017-03-30] MEDS: ENOXAPARIN 40 MG/0.4 ML SYR SC SCH (10:40)
[2017-03-30] MEDS ORDERED: MAGNESIUM HYDROXIDE 30 ML UDCUP PO PRN (10:54)
[2017-03-30] MEDS ORDERED: POLYETHYLENE GLYCOL 3350 17 GM PKT PO PRN (10:54)
[2017-03-30] MEDS ORDERED: BISACODYL 10 MG SUPP PR PRN (10:54)
[2017-03-30] MEDS: FLUTICASONE NASAL 120 SPRAYS/16 GM MDI EACHNARE SCH (11:56)
[2017-03-30] MEDS: SENNOSIDES/DOCUSATE SODIUM TAB PO SCH ×2 (12:09→20:50)
--- NOTE | 2017-03-30 12:28 | SOAPPROG ---
ARIC Progress Note Assessment/Plan: Assessment/Plan: - 71yo M POD#1 s/p lap efraín - pain appears well controlled - Tolerating clears, will advance to reg diet, abdomen is soft and appropriately tender. Incisions are c/d/i - hasnt gotten out of bed yet but will try today. - Looks good, appears to be healing appropriately s/p efraín which per report was quite sick 03/30/17 12:25 Subjective: feels better, has some soreness but appropriately so Objective: Vital Signs Temp Pulse Resp BP Pulse Ox 36.5 C 97 19 118/84 H 95 03/30/17 11:47 03/30/17 11:47 03/30/17 11:47 03/30/17 11:47 03/30/17 11:47 Laboratory Results 03/30/17 05:20 03/30/17 05:20 03/29/17 03/30/17 03/31/17 05:59 05:59 05:59 Intake Total 1350 2332 Output Total 3000 Balance 1350 -668 PT 13.0 SEC (12.0-15.0) 03/27/17 09:29 INR 0.96 (0.83-1.16) 03/27/17 09:29 ICD10 Worksheet Patient Problems: Problems Problem Status Onset Abdominal pain Acute Hyperbilirubinemia Acute Thoracic spondylitis Acute Thoracic spondylosis with cord compression Acute Transaminitis Acute Fusion of spine of cervical region Acute
[2017-03-30] MEDS: oxyCODONE IR 5 MG TAB PO PRN ×2 (15:30→20:49)
--- NOTE | 2017-03-30 16:13 | SOAPPROG ---
SOAP Progress Note Assessment/Plan: Assessment: Left hip djd Plan: Recovering from abdominal surgery hip pain is stable and he is able to ambulate will not have orthopedic surgery this admission will f/u with Dr. Flaherty for hip djd and Dr. Moore for his shoulder 03/30/17 16:11 Subjective: hip pain improving since admission Objective: Vital Signs Temp Pulse Resp BP Pulse Ox 36.4 C 100 18 111/69 95 03/30/17 15:26 03/30/17 15:26 03/30/17 15:26 03/30/17 15:26 03/30/17 15:26 Laboratory Results 03/30/17 05:20 03/30/17 05:20 03/29/17 03/30/17 03/31/17 05:59 05:59 05:59 Intake Total 1350 2332 Output Total 3000 Balance 1350 -668 PT 13.0 SEC (12.0-15.0) 03/27/17 09:29 INR 0.96 (0.83-1.16) 03/27/17 09:29 sitting well nvi in lle ICD10 Worksheet Patient Problems: Problems Problem Status Onset Abdominal pain Acute Hyperbilirubinemia Acute Thoracic spondylitis Acute Thoracic spondylosis with cord compression Acute Transaminitis Acute Fusion of spine of cervical region Acute
[2017-03-30] MEDS: ATORVASTATIN CALCIUM 10 MG TAB PO SCH (20:50)
[2017-03-30] MEDS: amLODIPine BESYLATE 5 MG TAB PO SCH (20:52)
[2017-03-30] MEDS ORDERED: SENNOSIDES/DOCUSATE SODIUM TAB PO SCH (21:00)
[2017-03-31 06:33] LABS: % IMMATURE GRANULYOCYTES 0.3 % (0.0-1.1); ABSOLUTE IMMATURE GRANULOCYTES 0.03 10^3/uL (0.00-0.10); ADD DIFF? NO; ADD MORPH? NO; ADD SCAN? NO; ATYPICAL LYMPHOCYTE FLAG 0 (0-99); FRAGMENT RBC FLAG 0 (0-99); HEMATOCRIT 40.5 % (40.0-51.0); HEMOGLOBIN 13.5 g/dL (13.7-17.5); LEFT SHIFT FLG 0 (0-99); LIPEMIA HEMOLYSIS FLAG 80 (0-99); MEAN CELL HEMOGLOBIN 32.4 pg (27.9-34.1); MEAN CELL HEMOGLOBIN CONCENTR. 33.3 g/dL (32.4-36.7); MEAN CELL VOLUME 97.1 fL (81.5-99.8); PLATELET CLUMPS FLAG 10 (0-99); PLATELET COUNT 261 10^3/uL (150-400); RED BLOOD CELL COUNT 4.17 10^6/uL (4.40-6.38)
[2017-03-31 06:38] LABS: ALANINE AMINOTRANSFERASE 139 IU/L (21-72); ALBUMIN 3.3 g/dL (3.5-5.0); ALKALINE PHOSPHATASE 121 IU/L (38-126); ANION GAP 11 mEq/L (8-16); ASPARTATE AMINOTRANSFERASE 67 IU/L (17-59); BILIRUBIN,TOTAL 0.9 mg/dL (0.1-1.4); CARBON DIOXIDE 32 mEq/l (22-31); CHLORIDE 96 mEq/L (97-110); CREATININE 0.9 mg/dL (0.7-1.3); GLOMERULAR FILTRATION RATE > 60; GLUCOSE 90 mg/dL (70-100); POTASSIUM 3.8 mEq/L (3.5-5.2); SODIUM 139 mEq/L (134-144); TOTAL PROTEIN 6.1 g/dL (6.3-8.2)
[2017-03-31] MEDS: DULoxetine 60 MG CAP PO SCH ×2 (08:52→21:13)
[2017-03-31] MEDS: AMOXICILLIN/CLAVULANATE POT 875/125 MG TAB PO SCH ×2 (08:53→21:13)
[2017-03-31] MEDS: SENNOSIDES/DOCUSATE SODIUM TAB PO SCH ×2 (08:53→21:13)
[2017-03-31] MEDS: ASCORBIC ACID 500 MG TAB PO SCH (08:54)
[2017-03-31] MEDS: ENOXAPARIN 40 MG/0.4 ML SYR SC SCH (08:55)
[2017-03-31] MEDS: PSYLLIUM METAMUCIL 1 PKT PO SCH (08:56)
[2017-03-31] MEDS: ACETAMINOPHEN 325 MG TAB PO PRN ×3 (09:00→21:12)
[2017-03-31] MEDS: oxyCODONE IR 5 MG TAB PO PRN ×3 (09:01→21:13)
[2017-03-31] MEDS: FLUTICASONE NASAL 120 SPRAYS/16 GM MDI EACHNARE SCH (10:02)
--- NOTE | 2017-03-31 10:46 | SOAPPROG ---
SODUNG Progress Note Assessment/Plan: Assessment: s/p lap efraín for non filling of gallbladder - difficulty surgery Regular diet May shower Abx for total of 1 week post surgery F/U with Dr. Garcia or Vanessa Boudreaux in 1-2 weeks HOme with PT S: Feeling well, Tolerating diet, sore Incisions cdi, abdomen is soft Plan: 03/28/17 21:34 03/31/17 10:45 Objective: Vital Signs Temp Pulse Resp BP Pulse Ox 36.9 C 101 H 17 107/73 87 L 03/31/17 08:00 03/31/17 08:00 03/31/17 08:00 03/31/17 08:00 03/31/17 08:00 Laboratory Results 03/31/17 05:00 03/31/17 05:00 03/30/17 03/31/17 04/01/17 05:59 05:59 05:59 Intake Total 2332 1500 Output Total 3000 475 Balance -668 1025 PT 13.0 SEC (12.0-15.0) 03/27/17 09:29 INR 0.96 (0.83-1.16) 03/27/17 09:29 ICD10 Worksheet Patient Problems: Problems Problem Status Onset Abdominal pain Acute Hyperbilirubinemia Acute Thoracic spondylitis Acute Thoracic spondylosis with cord compression Acute Transaminitis Acute Fusion of spine of cervical region Acute
--- NOTE | 2017-03-31 14:28 | HOSPPROG ---
Hospitalist Progress Note Assessment/Plan: # gait instability, shuffling gait, weakness - at this point, suspect most likely d/t acute cholecystitis - follow post-cholecystectomy continue to mobilize # acute cholecystitis s/p lap efraín 03/[address] Garcia - abx PO for 5 johns total # acute resp failure post-op - suspect d/t splinting/atelectasis from abd issues - overall improving today # renal cyst - needs f/u, inpatient vs outpatient # L hip OA - will need JORDAN, timing TBD around lap efraín, rotator cuff issues # L shoulder - rotator cuff surgery delayed d/t weakness # encephalopathy - improved # ZENY - CPAP # htn - norvasc # lovenox Subjective: +flatus; no BM; working with PT/OT, feeling stronger overall, less L hip pain Objective: Vital Signs Temp Pulse Resp BP Pulse Ox 36.9 C 101 H 17 107/73 87 L 03/31/17 08:00 03/31/17 08:00 03/31/17 08:00 03/31/17 08:00 03/31/17 08:00 Laboratory Results 03/31/17 05:00 03/31/17 05:00 03/30/17 03/31/17 04/01/17 05:59 05:59 05:59 Intake Total 2332 1500 Output Total 3000 475 Balance -668 1025 PT 13.0 SEC (12.0-15.0) 03/27/17 09:29 INR 0.96 (0.83-1.16) 03/27/17 09:29 - Physical Exam Constitutional: no apparent distress, appears nourished Eyes: anicteric sclera Ears, Nose, Mouth, Throat: hearing normal Cardiovascular: No edema Respiratory: no respiratory distress Gastrointestinal: other (soft, mild ttp; ), No guarding, No rebound, No distension Genitourinary: No mota in urethra Skin: normal color Neurologic: AAOx3 Psychiatric: interacting appropriately ICD10 Worksheet Patient Problems: Problems Problem Status Onset Fusion of spine of cervical region Acute Thoracic spondylitis Acute Thoracic spondylosis with cord compression Acute Hyperbilirubinemia Acute Transaminitis Acute Abdominal pain Acute
--- NOTE | 2017-03-31 15:06 | ASMTCMCOM ---
CM Note CM Note Notes: CM met w/ pt for dispo planning. PT is recommending HC. OT is recommending SNF. Pt would like to go home. Pts would like pt to go to rehab. Pts recently had surgery. [facility] Non triggering PASRR completed. Pt is tentatively scheduled to d/c tomorrow. CM to follow. Plan: home w/ HC vs SNF Date Signed: 03/31/2017 03:06 PM Electronically Signed By:RICKI Tejada
[2017-03-31] MEDS: ATORVASTATIN CALCIUM 10 MG TAB PO SCH (21:13)
[2017-03-31] MEDS: amLODIPine BESYLATE 5 MG TAB PO SCH (21:13)
[2017-04-01] MEDS: oxyCODONE IR 5 MG TAB PO PRN ×3 (04:12→15:53)
[2017-04-01] MEDS: ACETAMINOPHEN 325 MG TAB PO PRN ×3 (04:12→15:53)
[2017-04-01] MEDS ORDERED: BECLOMETHASONE DIPROPIONATE EACHNARE SCH (09:00)
--- NOTE | 2017-04-01 09:36 | GCON ---
[f rep st] CONSULTATION CONSULTATION DATE OF CONSULTATION: 04/01/2017 REASON FOR CONSULTATION: Left hip pain. HISTORY OF PRESENT ILLNESS: 71-year-old male who was admitted to the hospital with decreased ability to weight bear and increasing pain in his left hip, groin as well as his abdomen. The patient has a known history of degenerative disc disease in his lumbar spine, recently underwent cervical spine lea rgery a few months ago. Since he has been in the hospital, he underwent an urgent laparoscopic efraín cystectomy. This has greatly improved his left hip symptoms and ability to ambulate. His calls it a complete 180. He is now ambulating without significant difficulty, however, is using a walker. He has denied fevers or chills. At its worst the pain in his left hip was severe, however, is now mild to moderate, worse with rotation. Denies snapping or popping, numbness or tingling in the left foot or ankle. Of note, he was scheduled to have a left shoulder rotator cuff surgery on the day of his admission to the emergency department. The pain in his left hip has only been present since appr oximately November, however, it has gotten worse. Notes no traumatic or inciting event. PAST MEDICAL HISTORY: Significant for degenerative disc disease in his cervical and lumbosacral spin e, hyperlipidemia, hypertension, sleep apnea. ALLERGIES: Sulfa. MEDICATIONS: Include vitamin C, Tylenol, omeprazole, Skelaxin, beclomethasone, venlafaxine, Duloxeti ne and simvastatin. SOCIAL HISTORY: Denies tobacco or alcohol use. FAMILY HISTORY: Reviewed, noncontributory. REVIEW OF SYSTEMS: A 10-point review of systems performed, negative otherwise from above. PHYSICAL EXAM: GENERAL: He is sitting up in a chair, awake, alert, oriented x3. He is in no acute distress. HEAD: Normocephalic, atraumatic. EYES: Equal and reactive. MOUTH: Moist mucosal membr anes. Breathing easy, nonlabored. No wheezing. ABDOMEN: Still mildly tender from surgery, however , soft and minimally distended. EXTREMITIES: Exam in the lower extremities he is able to stand and walk with the help of a walker. He has 15 degrees of internal rotation of the left hip with pain, 50 degrees of external rotation with no pain. Strength is 5/5 throughout the left lower extremity. He is otherwise neurovascularly intact. IMAGING: Review of the left hip x-ray and MRI reveals moderate to severe left hip degenerative joint disease/osteoarthritis and bone marrow edema in the femoral head. ASSESSMENT AND PLAN: 71-year-old male with multiple medical problems including left hip degenerative joint disease. A long discussion was had regarding his treatment. I do not believe there is any ac uity in garcia to replace the patient's left hip, especially in the setting of an acute cholecystitis. I would recommend discharge from the hospital once the patient has been cleared from general and winston rosurgery. With regard to the surgery he has planned including his lumbar spine rotator cuff and lef t hip, if all things are equal regarding how the patient is affected by each of these I would recomme nd replacing the hip 1st when he is medically stable and there are no signs of systemic inflammation or infection. However, if the hip continues to improve after the treatment of his acute cholecystiti s, the patient could have the shoulder surgery 1st, however, he was made aware that he would need to wait at least 3-4 months until after the shoulder surgery, so that he could weight bear using a walke r or crutches after his hip replacement. I would still recommend holding off on lumbar spine surgery until the hip is adequately addressed. The patient understands and agrees with these treatment plan s. We did discuss the possibility of a corticosteroid injection. However, if he does decide to proc eed with the shoulder surgery 1st, this would be a reasonable option as it may provide some relief to his hip while he is recovering from his left shoulder surgery. The patient understands and agrees w ith this treatment plan. Questions were answered. /[id number]/MODL
[2017-04-01] MEDS: DULoxetine 60 MG CAP PO SCH (10:02)
[2017-04-01] MEDS: SENNOSIDES/DOCUSATE SODIUM TAB PO SCH (10:02)
[2017-04-01] MEDS: AMOXICILLIN/CLAVULANATE POT 875/125 MG TAB PO SCH (10:03)
[2017-04-01] MEDS: ASCORBIC ACID 500 MG TAB PO SCH (10:03)
[2017-04-01] MEDS: ENOXAPARIN 40 MG/0.4 ML SYR SC SCH (10:08)
[2017-04-01] MEDS: PSYLLIUM METAMUCIL 1 PKT PO SCH (10:14)
--- NOTE | 2017-04-01 13:26 | PDIAF ---
- Diagnosis Diagnosis: acute cholecystitis Code Status: Full Code - Medication Management Discharge Medications: Medications to Continue on Transfer DULoxetine [Cymbalta 60 MG (*)] 60 mg PO BID 01/01/17 [Last Taken 03/26/17 09:00 ] Omeprazole [Prilosec 20 mg] 20 mg PO DAILY PRN 01/01/17 [Last Taken 03/25/17] Simvastatin [Zocor] 20 mg PO HS 01/01/17 [Last Taken 03/25/17] Acetaminophen [Tylenol ES 500 mg (*)] 1,000 mg PO DAILY PRN 01/15/17 [Last Taken 03/26/17] Ascorbic Acid [Vitamin C 500 mg (*)] 500 mg PO DAILY 01/15/17 [Last Taken Unknown] Beclomethasone Dipropionate [Qnasl] 1 spray EACHNARE DAILY 01/15/17 [Last Taken 03/26/17] Fexofenadine HCl [Haleigh Allergy] 180 mg PO DAILY PRN 01/15/17 [Last Taken Unknown] Metaxalone [Skelaxin 800 mg (*)] 800 mg PO BID PRN 01/15/17 [Last Taken 2 Weeks Ago ~01/01/17] Psyllium Husk (with Sugar) [Metamucil Packet] 1 each PO DAILY 03/27/17 [Last Taken 03/26/17] amLODIPine BESYLATE [Norvasc 5 mg (*)] 5 mg PO HS 03/27/17 [Last Taken 03/25/17] Amoxicillin/Clavulanate Pot [Augmentin 875 MG TAB (*)] 875 mg PO BID tab [Last Taken Unknown] Mail Carriers Supervisor Antibiotics: augmentin 875 bid; stop after dose on 04/03/17 Discharge Medications: Refer to the Discharge Home Medication list for PRN reason. - Orders Services needed: Registered Nurse, Certified Blue Line Hanger, Physical Therapy, Occupational Therapy Diet Recommendation: no restrictions on diet Wound Care Instructions: ok to shower Activity/Weight Bearing Restrictions: No heavy lifting pushing or pulling greater than 15 lbs for 2 weeks. May shower - Follow Up Care Current Providers and Referrals: Carlos Flaherty MD [Medical Doctor] - Symone Garcia MD [Medical Doctor] - follow up in 2 weeks (f/u 1-2 weeks post surgery with either Dr. Garcia or Vanessa Boudreaux PA-c. call to make an appointment.) PITER CARTER [Primary Care Provider] - As per Instructions Gabino Musa DO [Medical Doctor] - Gal Saxena MD [Medical Doctor] -
--- NOTE | 2017-04-01 13:57 | GDS ---
[f rep st] DISCHARGE SUMMARY ALL DIAGNOSES: 1. Weakness, gait instability, shuffling gait. 2. Acute cholecystitis. 3. Acute respiratory failure postoperatively. 4. Renal cyst, needing outpatient followup. 5. Left hip osteoarthritis, needing total hip replacement. 6. Left shoulder pathology, needing a rotator cuff surgery. 7. Encephalopathy. 8. Obstructive sleep apnea, on CPAP. 9. Hypertension. ALL PROCEDURES: Laparoscopic cholecystectomy on 03/29/[address] Garcia, revealing very inflamed gal lbladder. ALL IMPORTANT IMAGIN. MRI of cervical, thoracic and lumbar spine showing multiple levels of moderate to severe neural f oraminal narrowing in the C-spine, degenerative disease in the T-spine, spinal stenosis at L3-L4 with multiple levels of severe foraminal narrowing. 2. Lower extremity MRI showing moderate to advanced osteoarthritis in the left hip. 3. Brain MRI showing nothing acute, with underlying atrophy. 4. HIDA scan showing no uptake of contrast into the gallbladder. 5. CT angiogram of the chest showing no pulmonary embolus. Did show atelectasis. ALL CONSULTATIONS: 1. Dr. Flaherty with Orthopedics. 2. Dr. Garcia with General Surgery. 3. Neurosurgery. 4. Neurology. HOSPITAL COURSE: The patient presented with nonspecific symptoms, including weakness. It was also n oted that he had some mild abdominal pain and elevated transaminases. Initial evaluation focused on neurologic causes of his weakness. He underwent MRIs of his brain, as well as his spine. This does show some central stenosis in his lumbar spine. He was seen by Neurosurgery, who did not feel as tho ugh these findings truly accounted for his weakness. He was also seen by Neurology, who agreed that there was more of a metabolic picture. Neurology did not think that he was parkinsonian either. Thi s prompted ongoing evaluation of his gallbladder. He did undergo a laparoscopic cholecystectomy by Michell Garcia, which revealed acute cholecystitis. His weakness improved significantly after this, though he is still requiring help with many activities. He has been placed on Augmentin for a total of 5 d ays, to be stopped after his doses on April 03. Course was complicated by respiratory failure, wh ich is due to his abdominal process. There was no PE on his CT angiogram. He is making significant improvements in this. FOLLOWUP: 1. Dr. Garcia for postop followup in 1-[address] Saxena, he has an appointment on April 29 to consider a lumbar decompression surgery . 3. Dr. Flaherty with Orthopedics to consider hip replacement, as well as rotator cuff surgery. 4. Dr. Musa with Neurology to follow up on any ongoing neurologic questions. DISPOSITION: Discharged to [facility] in [facility] condition. BILLING: I spent more than 30 minutes on the day of discharge coordinating care. /[id number]/MODL
--- NOTE | 2017-04-01 14:40 | ASMTCMCOM ---
CM Note CM Note Notes: Spoke w/MD, pt will go to SNF. CM spoke w/pt and , would like [facility] and rehab, Malathi notified and pt accepted. DC Plan: SNF Date Signed: 04/01/2017 02:40 PM Electronically Signed By:Marion Jackman RN
--- NOTE | 2017-04-01 15:49 | PDIAF ---
- Diagnosis Diagnosis: acute cholecystitis Code Status: Full Code - Medication Management Discharge Medications: Medications to Continue on Transfer DULoxetine [Cymbalta 60 MG (*)] 60 mg PO BID 01/01/17 [Last Taken 03/26/17 09:00 ] Omeprazole [Prilosec 20 mg] 20 mg PO DAILY PRN 01/01/17 [Last Taken 03/25/17] Simvastatin [Zocor] 20 mg PO HS 01/01/17 [Last Taken 03/25/17] Acetaminophen [Tylenol ES 500 mg (*)] 1,000 mg PO DAILY PRN 01/15/17 [Last Taken 03/26/17] Ascorbic Acid [Vitamin C 500 mg (*)] 500 mg PO DAILY 01/15/17 [Last Taken Unknown] Beclomethasone Dipropionate [Qnasl] 1 spray EACHNARE DAILY 01/15/17 [Last Taken 03/26/17] Fexofenadine HCl [Haleigh Allergy] 180 mg PO DAILY PRN 01/15/17 [Last Taken Unknown] Metaxalone [Skelaxin 800 mg (*)] 800 mg PO BID PRN 01/15/17 [Last Taken 2 Weeks Ago ~01/01/17] Psyllium Husk (with Sugar) [Metamucil Packet] 1 each PO DAILY 03/27/17 [Last Taken 03/26/17] amLODIPine BESYLATE [Norvasc 5 mg (*)] 5 mg PO HS 03/27/17 [Last Taken 03/25/17] Amoxicillin/Clavulanate Pot [Augmentin 875 MG TAB (*)] 875 mg PO BID tab [Last Taken Unknown] oxyCODONE IR [Oxycodone Ir (*)] 5 mg PO Q4 #30 tab 04/01/17 [Last Taken Unknown] Halfway Antibiotics: augmentin 875 bid; stop after dose on 04/03/17 Discharge Medications: Refer to the Discharge Home Medication list for PRN reason. - Orders Services needed: Registered Nurse, Certified Social Media Project Manager, Physical Therapy, Occupational Therapy Oxygen: 2L Diet Recommendation: no restrictions on diet Wound Care Instructions: ok to shower Activity/Weight Bearing Restrictions: No heavy lifting pushing or pulling greater than 15 lbs for 2 weeks. May shower - Follow Up Care Current Providers and Referrals: Carlos Flaherty MD [Medical Doctor] - Symone Garcia MD [Medical Doctor] - follow up in 2 weeks (f/u 1-2 weeks post surgery with either Dr. Garcia or Vanessa Boudreaux PA-c. call to make an appointment.) PITER CARTER [Primary Care Provider] - As per Instructions Gabino Musa DO [Medical Doctor] - Gal Saxena MD [Medical Doctor] -
[2017-04-01 16:42] VITALS: BP 113/81; PULSE 96; RESP 18; TEMP 98.3; O2SAT 91
--- NOTE | 2017-04-02 18:01 | ASDISCHSUM ---
Discharge Information Plan Status:SNF Medically Cleared to Leave:03/30/2017 Discharge Date:04/01/2017 04:25 PM CM D/C Disposition:[facility] Facility ADT D/C Disposition:[facility] Facility Projected Discharge Date:04/01/2017 04:00 PM Transportation at D/C:Wheelchair Van Discharge Delay Reason: Follow-Up Date:04/01/2017 04:00 PM Discharge Slot: Final Diagnosis: Placement Information Referral Type:*Custodial/SNF Referral ID:[id number] Provider Name:[facility] Address 1:[address] Address 2: City:[place] Selection Factors: State:[place] Patient Contact Information Contact Name:COCO Relationship: Address:[address] City:[place] Alternate Phone: State/Zip Code:[place] [address] Email: Financial Information Financial Class: Primary Plan Desc:MEDICARE INPATIENT Primary Plan Number:[id number] Secondary Plan Desc:[employer] [facility] Secondary Plan Number:[id number] Assessment Information [facility] CM Progress Note CM Note CM Note Notes: Pt came in for back and abdominal pain. Pt had a spinal fusion in Dec 2016. Pt has follow up woti his ortho MD for his shoulder and OA of hip. Neurology sign off (see note), neurosurgery consulting. CHart review indicates pt has a son in [place] and is slightly confused (unknown what pt baseline is). PT/OT evals pending to guide d/c planning. CM to follow. Date Signed: 03/28/2017 01:59 PM Electronically Signed By:MARIELA Ken [facility] CM Progress Note CM Note CM Note Notes: Pt went for lap efraín today. DC needs not clear at this time. Met w/pt's Norma while pt was in surgery. Per norma he will have ortho consult tomorrow and possible hip surgery pending. Pt and live in [place]; they have supportive son who is locket maker and lives in [facility]. They have used [facility] in past and would like to use them again if HHC needed. We also discussed the possibility of rehab and senior blue book given. CM w/f. Date Signed: 03/29/2017 02:49 PM Electronically Signed By:Chelsey Castillo RN [facility] CM Progress Note CM Note CM Note Notes: CM met w/ pt for dispo planning. PT is recommending HC. OT is recommending SNF. Pt would like to go home. Pts would like pt to go to rehab. Pts recently had surgery. Referrals sent to [facility]. Non triggering PASRR completed. Pt is tentatively scheduled to d/c tomorrow. CM to follow. Plan: home w/ HC vs SNF Date Signed: 03/31/2017 03:06 PM Electronically Signed By:RICKI Tejada [facility] CM Progress Note CM Note CM Note Notes: Spoke w/, pt will go to SNF. CM spoke w/pt and , would like [facility] and rehab, Malathi notified and pt accepted. DC Plan: SNF Date Signed: 04/01/2017 02:40 PM Electronically Signed By:Marion Jackman RN Case Management Discharge Plan Note Case Management Discharge Discharge Order Complete? Answers: Yes Patient to Obtain Answers: Other Notes: [facility] Medications Transportation Arranged Answers: Other Notes: [facility] Transport will Pick (Date 04/01/2017 04:00 PM & Time) Faxed Final Orders Answers: Yes Family Notified Answers: Yes Discharge Comments Notes: Spoke Jillian, final orders faxed. Malathi at [facility] iris, LURDES to call report. Date Signed: 04/01/2017 02:43 PM Electronically Signed By:Marion Jackman RN Intervention Information Intervention Type:*IM-Signed Date of Service:04/01/2017 04:05 PM Patient Type:Inpatient Staff Member:Joellen Ochoa Hours: Discipline: Severity: Comment:
== END 2017-04-01 16:25 | DRG 417 ==
LOC: F3N 17:43 → F2N 03-29 19:20 → F3E 03-30 17:10
PROVIDERS: ADMIT Internal Medicine; ATTEND Student in an Organized Health Care Education/Training Program
DX: K80.00 Calculus of gallbladder with acute cholecystitis without obstruction (principal); J96.00 Acute respiratory failure, unspecified whether with hypoxia or hypercapnia; G93.40 Encephalopathy, unspecified; M75.102 Unspecified rotator cuff tear or rupture of left shoulder, not specified as traumatic; M16.12 Unilateral primary osteoarthritis, left hip; M48.02 Spinal stenosis, cervical region; M48.061 Spinal stenosis, lumbar region without neurogenic claudication; M47.894 Other spondylosis, thoracic region; G47.33 Obstructive sleep apnea (adult) (pediatric); I10 Essential (primary) hypertension; E78.5 Hyperlipidemia, unspecified; N28.1 Cyst of kidney, acquired; R26.81 Unsteadiness on feet; Z98.1 Arthrodesis status
CPT/HCPCS: 82947-QW; 96374; 97116-GP; 97162-GP; 97165-GO; 97530-GP; 97535-GO; A9537; G0472; G0480; G8978-GP-CJ; G8979-GP-CI; G8987-GO-CJ; G8988-GO-CI; J0690; J1100; J1650; J1885; J1940; J2001; J2250; J2370; J2405; J2704; J3010; Q9967

== ENCOUNTER → 2017-04-29 | Outpatient (CLI) | payer OTHER, BC | LOC: FIMAGING 14:54 | PROVIDERS: ATTEND Orthopaedic Surgery | DX: M16.12 Unilateral primary osteoarthritis, left hip (principal); M41.86 Other forms of scoliosis, lumbar region; M48.061 Spinal stenosis, lumbar region without neurogenic claudication; M25.452 Effusion, left hip ==

== ENCOUNTER → 2017-04-30 | Outpatient (CLI) | payer OTHER, BC | LOC: BHFA 13:30 | PROVIDERS: ATTEND Internal Medicine Interventional Cardiology | DX: Z01.810 Encounter for preprocedural cardiovascular examination (principal) | CPT/HCPCS: 78452; 93017; A9500; J2785 ==

== ENCOUNTER → 2017-05-01 | Outpatient (CLI) | payer OTHER, BC | LOC: BHCLAF 15:30 | PROVIDERS: ATTEND Internal Medicine Cardiovascular Disease | DX: R06.02 Shortness of breath (principal); I10 Essential (primary) hypertension | CPT/HCPCS: 93306-PO ==

== ENCOUNTER 2017-05-07 08:37 | Inpatient (IN) | payer OTHER, BC ==
[~2017-05-07 08:37] MED LIST: POVIDONE-IODINE 20 ML in SODIUM CL IRRIG SOLUTION 500 ML IRR ONE; ROPIVACAINE 0.2% 80 MG, EPINEPHrine 0.2 MG, KETOROLAC TROMETHAMINE 30 MG in SYRINGE 0 ML IU ONE; TRANEXAMIC ACID 1,000 MG in NS 100 ML IV ONE
[2017-05-07] MEDS ORDERED: ceFAZolin 2 GM/SWFI 2 GM/20 ML SYR IVP ONE ×2 (08:53→09:30)
[2017-05-07] MEDS ORDERED: ACETAMINOPHEN 325 MG TAB PO ONE (08:53)
[2017-05-07] MEDS ORDERED: DEXAMETHASONE 4 MG/ML VIAL IVP ONE (08:53)
[2017-05-07] MEDS ORDERED: FAMOTIDINE 20 MG TAB PO ONE (08:53)
[2017-05-07] MEDS ORDERED: LR 1,000 ML IV ONE (08:56)
[2017-05-07] MEDS ORDERED: LIDOCAINE 1% 2 ML INJ ID PRN (08:56)
[2017-05-07] MEDS ORDERED: BUPIVACAINE/EPI 0.5% 30 ML SDV ONE (09:13)
[2017-05-07] MEDS ORDERED: POLYMYXIN B SULFATE 500,000 UNIT/10 ML SYR IRR ONE (09:14)
[2017-05-07] MEDS ORDERED: BACITRACIN 50,000 UNITS/10 ML SYR IRR ONE (09:14)
--- NOTE | 2017-05-07 10:58 | PDANEPAE ---
ANE History of Present Illness 71 year old male with PMH significant for HTN well controlled on amlodipine, GERDS well controlled, he has had anesthesia prior without difficulty. ANE Past Medical History - Cardiovascular History Hx Hypertension: Yes Hx Arrhythmias: No Hx Chest Pain: No Hx Coronary Artery / Peripheral Vascular Disease: No Hx CHF / Valvular Disease: No Hx Palpitations: No Cardiovascular History Comment: RECENT BP ELEVATION - Pulmonary History Hx COPD: No Hx Asthma/Reactive Airway Disease: No Hx Recent Upper Respiratory Infection: No Hx Oxygen in Use at Home: Yes Hx Sleep Apnea: Yes Sleep Apnea Screening Result - Last Documented: Positive Pulmonary History Comment: ASTHMA W/ALLERGIES - CATS DANDER & DUST - Neurologic History Hx Cerebrovascular Accident: No Hx Seizures: No Hx Dementia: No - Endocrine History Hx Diabetes: No - Renal History Hx Renal Disorders: No Renal History Comment: BLADDER CONTROL - Liver History Hx Hepatic Disorders: No - Neurological & Psychiatric Hx Hx Neurological and Psychiatric Disorders: No Neurological / Psychiatric History Comment: CYMBALTA FOR BACK PAIN - Cancer History Hx Cancer: No - Congenital Disorder History Hx Congenital Disorders: No - GI History Hx Gastrointestinal Disorders: Yes Gastrointestinal History Comment: OCCAS ACID REFLUX - Other Health History Other Health History: NEG - Chronic Pain History Chronic Pain: Yes (BACK PAIN) - Surgical History Prior Surgeries: HERNIA REPAIR. EYE SURGERY CHILDHOOD ANE Review of Systems Review of Systems: - Exercise capacity METS (RN): 4 METS ANE Patient History - Allergies Allergies/Adverse Reactions: cat dander Allergy (Verified 01/01/17 10:27) Sulfite Allergy (Uncoded 03/29/17 10:20) - Home Medications Home Medications: DULoxetine [Cymbalta 60 MG (*)] 60 mg PO BID 01/01/17 [Last Taken 05/07/17] Omeprazole [Prilosec 20 mg] 20 mg PO DAILY PRN 01/01/17 [Last Taken 04/07/17] Simvastatin [Zocor] 20 mg PO HS 01/01/17 [Last Taken 05/06/17] Acetaminophen [Tylenol ES 500 mg (*)] 1,000 mg PO DAILY PRN 01/15/17 [Last Taken 05/06/17] Ascorbic Acid [Vitamin C 500 mg (*)] 500 mg PO DAILY 01/15/17 [Last Taken ] Beclomethasone Dipropionate [Qnasl] 1 spray EACHNARE DAILY 01/15/17 [Last Taken 03/26/17] Fexofenadine HCl [Haleigh Allergy] 180 mg PO DAILY PRN 01/15/17 [Last Taken Unknown] Metaxalone [Skelaxin 800 mg (*)] 800 mg PO BID PRN 01/15/17 [Last Taken 04/07/17 ] Psyllium Husk (with Sugar) [Metamucil Packet] 1 each PO DAILY 03/27/17 [Last Taken 04/07/17] amLODIPine BESYLATE [Norvasc 5 mg (*)] 5 mg PO HS 03/27/17 [Last Taken 05/06/17] - NPO status NPO Since - Liquids (Date): 05/07/17 NPO Since - Liquids (Time): 07:00 NPO Since - Solids (Date): 05/07/17 NPO Since - Solids (Time): 18:00 - Smoking Hx Smoking Status: Former smoker - Family Anes Hx Family Hx Anesthesia Complications: NEG ANE Labs/Vital Signs - Vital Signs Blood Pressure: 121/80 Heart Rate: 75 Respiratory Rate: 16 O2 Sat (%): 91 Height: 162.56 cm Weight: 77.111 kg ANE Physical Exam - Airway Neck exam: FROM Mallampati Score: Class 1 Mouth exam: normal dental/mouth exam - Pulmonary Pulmonary: no respiratory distress - Cardiovascular Cardiovascular: regular rate and rhythym - ASA Status ASA Status: I ANE Anesthesia Plan Anesthesia Plan: spinal
--- NOTE | 2017-05-07 11:02 | PDANEPAE ---
ANE History of Present Illness In addition he had a cervical spinal fusion however has good range of motion and Left rotator. Patient smoked a pipe in college with no other smoking history. ANE Past Medical History - Cardiovascular History Hx Hypertension: Yes Hx Arrhythmias: No Hx Chest Pain: No Hx Coronary Artery / Peripheral Vascular Disease: No Hx CHF / Valvular Disease: No Hx Palpitations: No Cardiovascular History Comment: RECENT BP ELEVATION - Pulmonary History Hx COPD: No Hx Asthma/Reactive Airway Disease: No Hx Recent Upper Respiratory Infection: No Hx Oxygen in Use at Home: Yes Hx Sleep Apnea: Yes Sleep Apnea Screening Result - Last Documented: Positive Pulmonary History Comment: ASTHMA W/ALLERGIES - CATS DANDER & DUST - Neurologic History Hx Cerebrovascular Accident: No Hx Seizures: No Hx Dementia: No - Endocrine History Hx Diabetes: No - Renal History Hx Renal Disorders: No Renal History Comment: BLADDER CONTROL - Liver History Hx Hepatic Disorders: No - Neurological & Psychiatric Hx Hx Neurological and Psychiatric Disorders: No Neurological / Psychiatric History Comment: CYMBALTA FOR BACK PAIN - Cancer History Hx Cancer: No - Congenital Disorder History Hx Congenital Disorders: No - GI History Hx Gastrointestinal Disorders: Yes Gastrointestinal History Comment: OCCAS ACID REFLUX - Other Health History Other Health History: NEG - Chronic Pain History Chronic Pain: Yes (BACK PAIN) - Surgical History Prior Surgeries: HERNIA REPAIR. EYE SURGERY CHILDHOOD ANE Review of Systems Review of Systems: - Exercise capacity METS (RN): 4 METS ANE Patient History - Allergies Allergies/Adverse Reactions: cat dander Allergy (Verified 01/01/17 10:27) Sulfite Allergy (Uncoded 03/29/17 10:20) - Home Medications Home Medications: DULoxetine [Cymbalta 60 MG (*)] 60 mg PO BID 01/01/17 [Last Taken 05/07/17] Omeprazole [Prilosec 20 mg] 20 mg PO DAILY PRN 01/01/17 [Last Taken 04/07/17] Simvastatin [Zocor] 20 mg PO HS 01/01/17 [Last Taken 05/06/17] Acetaminophen [Tylenol ES 500 mg (*)] 1,000 mg PO DAILY PRN 01/15/17 [Last Taken 05/06/17] Ascorbic Acid [Vitamin C 500 mg (*)] 500 mg PO DAILY 01/15/17 [Last Taken ] Beclomethasone Dipropionate [Qnasl] 1 spray EACHNARE DAILY 01/15/17 [Last Taken 03/26/17] Fexofenadine HCl [Haleigh Allergy] 180 mg PO DAILY PRN 01/15/17 [Last Taken Unknown] Metaxalone [Skelaxin 800 mg (*)] 800 mg PO BID PRN 01/15/17 [Last Taken 04/07/17 ] Psyllium Husk (with Sugar) [Metamucil Packet] 1 each PO DAILY 03/27/17 [Last Taken 04/07/17] amLODIPine BESYLATE [Norvasc 5 mg (*)] 5 mg PO HS 03/27/17 [Last Taken 05/06/17] - NPO status NPO Since - Liquids (Date): 05/07/17 NPO Since - Liquids (Time): 07:00 NPO Since - Solids (Date): 05/07/17 NPO Since - Solids (Time): 18:00 - Smoking Hx Smoking Status: Former smoker - Family Anes Hx Family Hx Anesthesia Complications: NEG ANE Labs/Vital Signs - Vital Signs Blood Pressure: 121/80 Heart Rate: 75 Respiratory Rate: 16 O2 Sat (%): 91 Height: 162.56 cm Weight: 77.111 kg
[2017-05-07] MEDS ORDERED: ROCURONIUM 50 MG/5 ML VIAL ONE (11:09)
[2017-05-07] MEDS ORDERED: PROPOFOL 200 MG/20 ML VIAL ONE ×2 (11:10→11:51)
[2017-05-07] MEDS ORDERED: MIDAZOLAM 2 MG/2 ML VIAL ONE (11:51)
[2017-05-07] MEDS ORDERED: fentaNYL 250 MCG/5 ML INJ ONE (11:52)
--- NOTE | 2017-05-07 14:59 | POSTOPPROG ---
Post Op Note Date of Operation: 05/07/17 Surgeon: Carlos Flaherty Looper Fixer: Dwight Thapa CSA Anesthesiologist: Vargas MCKINNON Anesthesia: GET(General Endotracheal) Pre-op Diagnosis: Left hip OA Post-op Diagnosis: same Procedure: Left anterior JORDAN with Teja robotic guidance Inf/Abcess present in the surg proc area at time of surgery?: No EBL: 50-100 (150) Complications: none Drains: Hemovac
[2017-05-07] MEDS ORDERED: PROMETHAZINE HCL 25 MG/ML INJ IVP PRN (15:00)
[2017-05-07] MEDS ORDERED: PROMETHAZINE HCL 25 MG SUPPR PR PRN (15:00)
[2017-05-07] MEDS ORDERED: BISACODYL 10 MG SUPP PR PRN (15:00)
[2017-05-07] MEDS ORDERED: ONDANSETRON 4 MG/2 ML VIAL IVP PRN (15:00)
[2017-05-07] MEDS ORDERED: ONDANSETRON DISINTEGRATING 4 MG TAB PO PRN (15:00)
[2017-05-07] MEDS ORDERED: TEMAZEPAM 15 MG CAP PO PRN (15:00)
[2017-05-07] MEDS ORDERED: CYCLOBENZAPRINE 10 MG TAB PO PRN (15:00)
[2017-05-07] MEDS ORDERED: POLYETHYLENE GLYCOL 3350 17 GM PKT PO PRN (15:00)
[2017-05-07] MEDS ORDERED: LACTULOSE 20 GM/30 ML UDCUP PO PRN (15:00)
[2017-05-07] MEDS ORDERED: diphenhydrAMINE 25 MG CAP PO PRN (15:00)
[2017-05-07] MEDS ORDERED: DIPHENOXYLATE/ATROPINE LOMOTIL 1 TAB PO PRN (15:00)
[2017-05-07] MEDS ORDERED: LR 1,000 ML IV SCH (15:00)
[2017-05-07] MEDS ORDERED: MAGNESIUM HYDROXIDE 30 ML UDCUP PO PRN (15:00)
[2017-05-07] MEDS ORDERED: LR 500 ML IV PRN (15:10)
[2017-05-07] MEDS ORDERED: NALOXONE HCL 0.4 MG/ML INJ IVP PRN (15:10)
[2017-05-07] MEDS ORDERED: fentaNYL 100 MCG/2 ML INJ ONE (15:50)
[2017-05-07] MEDS: fentaNYL 100 MCG/2 ML INJ IVP PRN ×2 (15:53→16:17)
--- NOTE | 2017-05-07 15:57 | GOP ---
[f rep st] OPERATIVE REPORT DATE OF OPERATION: 05/07/2017 SURGEON: Carlos Flaherty MD REPTILE KEEPER: Dwight Thapa, CSFA, LSA. Machinery Cleaner was required for the procedure due to the comple xity of the case and the patient's condition for positioning, prepping, draping, retraction and closu re. ANESTHESIA: General. PREOPERATIVE DIAGNOSIS: Left hip osteoarthritis. POSTOPERATIVE DIAGNOSIS: Left hip osteoarthritis. PROCEDURE PERFORMED: Left hip anterior approach hip replacement with MAKOplasty robotic guidance. FINDINGS: SPECIMENS: None. ESTIMATED BLOOD LOSS: 150 cc. DESCRIPTION OF PROCEDURE: FLUOROSCOPIC SUPERVISION: Greater than 1 hour. DRAINS: Hemovac x1. COMPLICATIONS: None. IMPLANTS: Include a tritanium hemispherical solid-back cup size 54, 0-degree polyethylene insert 36 mm, Biolox delta ceramic V40 femoral head 36 mm, neck length minus 2.5 mm, Accolade-II 127-degree nec k angle hip stem size 5. INDICATIONS FOR PROCEDURE: Patient has severe hip osteoarthritis that failed to improve with conserv ative measures, significantly affecting activities of daily living including walking. The patient el ected to proceed with anterior approach hip replacement using MAKOplasty robotic guidance after exten sive discussion of all possible approaches, as well as risks, benefits, pros, cons, expected recovery and prognosis. The patient verbalized understanding of the risks, benefits, procedure and signed th e informed consent prior to the procedure. OPERATIVE REPORT: The patient was seen in the holding area and the operative consent and extremity w ere signed. The patient was taken to the operating room and after smooth induction of general anesth esia, was placed in the supine position on the Steris fracture table. The hip and the contralateral iliac crest were then prepped and draped in the usual sterile fashion. The operative site was confir med by signature, operative time-out performed, allergies reviewed and antibiotics and TSA administer ed. Three pins were placed in the contralateral iliac crest and femoral array was fixed. It was well vis ualized by the robot. The desired incision for the anterior approach on the hip was infiltrated with 0.25% Marcaine with epinephrine. The incision was made with a 10 blade, carried through the subcuta neous tissue. Did identify the TFL fascia. This was incised in line with the incision and the TFL w as retracted laterally. The lateral femoral circumflex vessels were coagulated with Aquamantys. The deep TFL fascia was incised and the vastus lateralis was clearly exposed. Pericapsular fat was exci sed. A T-shaped capsulotomy was performed and the capsule was preserved for later closure. The femoral array was fixed in the anterior greater trochanter, as was the checkpoint for the femur. Femoral registration was performed using the robot. The femoral neck cut was then performed under r obotic guidance. The femoral head was excised with a corkscrew. The acetabulum was then exposed in a standard fashion. The labrum and pulvinar soft tissue were excised sharply. The pelvic checkpoint was placed in the AIIS. Acetabular registration was performed using the robot. Reaming was then pe rformed using the robot to the desired size. The cup was impacted into place, again with the robotic guidance system. Good fixation was achieved. The hip was irrigated and dried and the liner was imp acted into place, achieving a good locking within the cup. The femur was then exposed in standard fashion. The femur was broached to the desired size. Trial n farhan and head were attached and the hip was relocated. The length and offset were confirmed using the robot. The position of all components was also confirmed at this point fluoroscopically. The hip wa s then dislocated and the femoral trial components were removed and the stem was impacted into place. The trunnion was then cleaned and dried and the head was impacted down onto the trunnion. The woun d was copiously irrigated including the cup with a pulse lavage and the hip was once again relocated and final numbers for the length and offset were taken using the robot. Component placement was conf irmed with fluoroscopy. All checkpoints and the femoral array screw were removed. The pelvic array was also removed. The wo und was then copiously irrigated with Betadine and sterile saline. Betadine solution was allowed to soak for at least 3 minutes. The capsule was repaired with #1 Vicryls. The drain was placed, exitin g distally and laterally from deep to TFL. Soft tissues were infiltrated with a joint cocktail. The wound was then closed with #2 barbed suture in the TFL fascia, 0 Quill in the deep subcutaneous fat, skin with 4-0 V-Loc in the dermis. The wound was then dressed with sterile dressings. The patient was safely awakened and taken to the recovery room in stable condition. All critical portions of the procedure were performed by myself, Dr. Flaherty. This operative note was c reated by myself and I was immediately available for emergency cross-coverage at all times. /[id number]/MODL
--- NOTE | 2017-05-07 16:48 | POSTANESTH ---
Post Anesthetic Evaluation Cardiovascular Status: Normal, Stable Respiratory Status: Normal, Stable Level of Consciousness/Mental Status: Can Participate in Eval Pain Control: Adequate, Prn Tx Ordered Nausea/Vomiting Control: Adequate, Prn Tx Ordered Complications Possibly Related to Anesthesia: None Noted
[2017-05-07] MEDS: ACETAMINOPHEN 325 MG TAB PO SCH ×2 (18:18→23:52)
[2017-05-07] MEDS: ceFAZolin 2 GM/DEXTROSE 100 ML IV SCH (20:19)
[2017-05-07] MEDS: FAMOTIDINE 20 MG TAB PO SCH (20:20)
[2017-05-07] MEDS: SENNOSIDES/DOCUSATE SODIUM TAB PO SCH (20:20)
[2017-05-07] MEDS: ASPIRIN 325 MG TAB PO SCH (20:23)
[2017-05-08] MEDS: ceFAZolin 2 GM/DEXTROSE 100 ML IV SCH (04:13)
[2017-05-08] MEDS: ACETAMINOPHEN 325 MG TAB PO SCH ×2 (04:54→12:01)
[2017-05-08] MEDS ORDERED: ALBUTEROL 60 PUFFS/8 GM MDI IH PRN (07:31)
--- NOTE | 2017-05-08 07:36 | SOAPPROG ---
SOAP Progress Note Assessment/Plan: Assessment: 71-year-old male postop day 1 status post left anterior approach total hip arthroplasty with make or body guidance Plan: Weight-bearing as tolerated with assistance, PT OT Patient has known baseline hypoxia and is on CPAP with oxygen at home. Patient denies any chest pain or shortness of breath Pain control as needed Incentive spirometry 10 times per hour 325 mg of aspirin this morning for DVT prophylaxis. Lovenox beginning tomorrow for 2 weeks followed by 325 mg of aspirin for the following 2 weeks Disposition: Home today after physical therapy. Patient and family are interested [facility] 05/08/17 07:32 Subjective: No acute events. Pain well controlled. Ambulate to the restroom multiple times over the night without issue. Denies fevers chills nausea vomiting chest pain shortness of breath numbness tingling or weakness Objective: Vital Signs Temp Pulse Resp BP Pulse Ox 36.6 C 85 18 100/60 92 05/08/17 04:00 05/08/17 04:00 05/08/17 04:00 05/08/17 04:00 05/08/17 04:00 Laboratory Results 05/08/17 04:13 05/07/17 05/08/17 05/09/17 05:59 05:59 05:59 Intake Total 4590 Output Total 1200 Balance 3390 Alert and oriented x3 No acute distress Easy nonlabored breathing Incision clean dry intact no erythema drainage or signs of infection Drain has been removed dressing placed, clean dry and intact Thigh and calf compartments soft compressible Sensation intact to light touch throughout the left lower extremity Motor intact to EHL FHL tibialis anterior and gastrocsoleus Distal pulses palpable - Time Spent With Patient Time Spent With Patient: 20 - Pending Discharge Pending Discharge Within 24 Hours: Yes Pending Discharge Date: 05/08/17 Pending Discharge Time: 11:00 ICD10 Worksheet Patient Problems: Problems Problem Status Onset Osteoarthritis of left hip Acute Abdominal pain Acute Fusion of spine of cervical region Acute Hyperbilirubinemia Acute Thoracic spondylitis Acute Thoracic spondylosis with cord compression Acute Transaminitis Acute
[2017-05-08] MEDS: oxyCODONE IR 5 MG TAB PO PRN ×2 (08:04→10:36)
[2017-05-08] MEDS: SENNOSIDES/DOCUSATE SODIUM TAB PO SCH (08:05)
[2017-05-08] MEDS: FAMOTIDINE 20 MG TAB PO SCH (08:05)
[2017-05-08] MEDS: ASPIRIN 325 MG TAB PO SCH (08:07)
[2017-05-08 08:41] VITALS: PULSE 80; RESP 16
[2017-05-08] MEDS ORDERED: DULoxetine 60 MG CAP PO SCH (09:00)
[2017-05-08] MEDS ORDERED: ASCORBIC ACID 500 MG TAB PO SCH (09:00)
[2017-05-08 11:36] VITALS: BP 103/60; TEMP 98.1; O2SAT 92
--- NOTE | 2017-05-08 12:19 | PDIAF ---
- Diagnosis Diagnosis: Left Hip OA s/p Left anterior approach JORDAN with LUZ MARINA robotic guidance Code Status: Full Code - Medication Management Discharge Medications: Medications to Continue on Transfer DULoxetine [Cymbalta 60 MG (*)] 60 mg PO BID 01/01/17 [Last Taken 05/07/17] Simvastatin [Zocor] 20 mg PO HS 01/01/17 [Last Taken 05/06/17] Ascorbic Acid [Vitamin C 500 mg (*)] 500 mg PO DAILY 01/15/17 [Last Taken ] amLODIPine BESYLATE [Norvasc 5 mg (*)] 5 mg PO HS 03/27/17 [Last Taken 05/06/17] Albuterol [Proventil Inhaler HFA (*)] 1 - 2 puffs IH Q4H PRN 05/07/17 [Last Taken Unknown] Aspirin [Aspirin 325 mg (*)] 325 mg PO DAILY tab 05/08/17 [Last Taken Unknown] Discharge Medications: Refer to the Discharge Home Medication list for PRN reason. PICC Care - Routine: N/A - Orders Services needed: Home Care, Physical Therapy Home Care Face to Face: I certify that this patient was under my care and that I had the required [id number] encounter meeting the encounter requirements on the discharge day. My findings support the fact that the patient is homebound as defined in Home Care Face to Face Continued: CMS Chapter 7 Medicare Benefits Manual 30.1.1 , The condition of the patient is such that there exists a normal inability to leave home and consequently, leaving home would require a considerable and taxing effort. Isolation Type: None Diet Recommendation: no restrictions on diet Diet Texture: Regular Texture Diet - Follow Up Care Current Providers and Referrals: Carlos Flaherty MD [Medical Doctor] - PITER CARTER [Primary Care Provider] -
--- NOTE | 2017-05-08 12:24 | ASMTCMCOM ---
CM Note CM Note Notes: Pt medically stable for d/c with [facility] PT. Pt has been open w [facility] in past, address/phone confirmed. Orders to be obtained in [employer]. Date Signed: 05/08/2017 12:24 PM Electronically Signed By:MARIELA Ken
--- NOTE | 2017-05-08 13:55 | ASDISCHSUM ---
Discharge Information Plan Status:Home with Home Health Medically Cleared to Leave: Discharge Date:05/08/2017 12:39 PM CM D/C Disposition:Home Health Service ADT D/C Disposition:Home Health Service Projected Discharge Date:05/08/2017 11:00 AM Transportation at D/C: Discharge Delay Reason: Follow-Up Date:05/08/2017 11:00 AM Discharge Slot: Final Diagnosis: Placement Information Referral Type:*Home Health Care Services Referral ID:[id number] Provider Name:[facility] Address 1:[address] Address 2: City:[place] Selection Factors: State:[place] Patient Contact Information Contact Name:COCO Relationship: Address:[address] [facility] [facility] City:[place] Alternate Phone: State/Zip Code:[place] [address] Email: Financial Information Financial Class: Primary Plan Desc:MEDICARE INPATIENT Primary Plan Number:[id number] Secondary Plan Desc:[employer] FEDERAL PLAN Secondary Plan Number:[id number] Assessment Information [facility] CM Progress Note CM Note CM Note Notes: Pt medically stable for d/c with [facility] PT. Pt has been open w [facility] in past, address/phone confirmed. Orders to be obtained in [employer]. Date Signed: 05/08/2017 12:24 PM Electronically Signed By:MARIELA Ken Intervention Information
[2017-05-08] MEDS ORDERED: amLODIPine BESYLATE 5 MG TAB PO SCH (21:00)
[2017-05-08] MEDS ORDERED: ATORVASTATIN CALCIUM 10 MG TAB PO SCH (21:00)
--- NOTE | 2017-05-08 22:43 | GDS ---
[f rep st] DISCHARGE SUMMARY ADMITTING DIAGNOSIS: Left hip osteoarthritis. DISCHARGE DIAGNOSIS: Left hip osteoarthritis. PROCEDURE PERFORMED: Left anterior approach total hip arthroplasty with Teja robotic guidance. HOSPITAL COURSE: Patient underwent the above procedure on the admission date successively without co mplication and tolerated it well. He received perioperative antibiotics with Ancef. He was given a dose of 325 mg of aspirin for DVT prophylaxis, along with ROSEY hose and SCDs. Aspirin was given on po stoperative day 1. He was evaluated by Physical and Occupational Therapy, deemed safe for discharge home. Patient does have known hypoxia, for which he is on home CPAP with supplemental oxygen, was fo und to have hypoxia during admission, however, which he was completely asymptomatic for and stated th at this was his baseline. He denied fever, chills, chest pain, shortness of breath, nausea, or vomit ing. DISCHARGE DISPOSITION: Home on 05/08/2017. CONDITION UPON DISCHARGE: Stable. /[id number]/MODL
== END 2017-05-08 12:39 | disposition home health service (06) | DRG 470 ==
LOC: F3N 08:37
PROVIDERS: ADMIT Orthopaedic Surgery; ATTEND Orthopaedic Surgery
PROC: 0SRB04Z Replacement of Left Hip Joint with Ceramic on Polyethylene Synthetic Substitute, Open Approach (ICD-10-PCS; principal; 2017-05-07 10:15)
PROC: 8E0YXCZ Robotic Assisted Procedure of Lower Extremity (ICD-10-PCS; principal; 2017-05-07 10:15)
DX: M16.12 Unilateral primary osteoarthritis, left hip (principal); I10 Essential (primary) hypertension; E78.5 Hyperlipidemia, unspecified; R09.02 Hypoxemia; G47.33 Obstructive sleep apnea (adult) (pediatric); Z87.891 Personal history of nicotine dependence
CPT/HCPCS: 97116-GP; 97161-GP; 97165-GO; 97530-GP; 97535-GO; G8978-GP-CJ; G8979-GP-CI; G8987-GO-CI; G8988-GO-CI; G8989-GO-CI; J0171; J0690; J1100; J1885; J2250; J2704; J2795; J3010

== ENCOUNTER → 2017-08-28 | Outpatient (CLI) | payer OTHER, BC | LOC: BHFA 11:00 | PROVIDERS: ATTEND Internal Medicine Cardiovascular Disease | DX: R00.0 Tachycardia, unspecified (principal) ==

== ENCOUNTER → 2017-11-13 | Outpatient (CLI) | payer OTHER, BC | PROVIDERS: ATTEND Neurological Surgery | DX: R13.10 Dysphagia, unspecified (principal); Z98.1 Arthrodesis status | CPT/HCPCS: 74230; 92611; G8996; G8997; G8998 ==

== ENCOUNTER → 2018-05-31 | Outpatient (CLI) | payer OTHER, BC | LOC: FIMAGING 12:51 | PROVIDERS: ATTEND Physician Assistant Surgical | DX: Z98.1 Arthrodesis status (principal); M41.86 Other forms of scoliosis, lumbar region; M51.36 Other intervertebral disc degeneration, lumbar region | CPT/HCPCS: G0103 ==

== ENCOUNTER 2018-06-14 12:41 | Inpatient (IN) | payer OTHER, BC ==
--- NOTE | 2018-06-14 14:18 | EDPHY ---
H & P Stated Complaint: slipped on ice fell hit head and back Time Seen by Provider: 06/14/18 14:18 - Personal History Current Tetanus Diphtheria and Acellular Pertussis (TDAP): Yes - Medical/Surgical History Hx Asthma: Yes Hx Chronic Respiratory Disease: Yes Hx Diabetes: No Hx Cardiac Disease: No Hx Renal Disease: No Hx Cirrhosis: No Hx Alcoholism: No Hx HIV/AIDS: No Hx Splenectomy or Spleen Trauma: No Other PMH: hyperlipidemia, chronic pain, hernia rep., Lasik, Back surgery, c5/ c6 fusion, l shouder surg choly l hip surg - Social History Smoking Status: Former smoker Constitutional: Initial Vital Signs Temperature (C) 37.1 C 06/14/18 13:13 Heart Rate 86 06/14/18 13:13 Respiratory Rate 17 06/14/18 13:13 Blood Pressure 137/106 H 06/14/18 13:13 O2 Sat (%) 93 06/14/18 13:13 O2 Delivery Mode Nasal Cannula O2 (L/minute) 2 Allergies/Adverse Reactions: sulfite Allergy (Verified 06/14/18 13:10) Home Medications: Medication Instructions Recorded DULoxetine [Cymbalta 60 MG (*)] 60 mg PO BID 01/01/17 Simvastatin [Zocor] 20 mg PO HS 01/01/17 Acetaminophen [Tylenol 325mg (*)] 325 mg PO DAILY PRN 11/11/17 Calcium Carbonate/Vitamin D3 1 each PO DAILY 11/11/17 [Calcium 600 + Vit D 400 Softgl] Cholecalciferol Vit D3 [Vitamin D3 5,000 units PO DAILY 11/11/17 (*)] Herbals/Supplements -Info Only 1 ea PO DAILY 11/11/17 Losartan Potassium [Cozaar 25 mg 25 mg PO HS 11/11/17 (*)] Methocarbamol [Robaxin 750 mg (*)] 750 mg PO QID PRN tab 11/25/17 Doxycycline Hyclate 06/14/18 Naproxen 06/14/18 Medical Decision Making - Diagnostics Imaging Results: Imaging Impressions Lumbar Spine CT 06/14/18 14:25 Impression: 1. Multilevel severe degenerative disk disease from T12-L1 through L5-S1, with multilevel moderate to severe bilateral facet arthropathy, worse at L3-L4 and L4 -L5, resulting in severe central canal stenosis at L3-L4 and L4-L5 and moderate central canal stenosis at L2-L3. 2. Moderate levoscoliosis, without evidence of acute compression fractures. 3. If there is persistent pain or neurological deficit, recommend MR lumbar spine and consider flexion and extension views, if clinically indicated. Findings and recommendations discussed with Emergency Department physician, Ji Forte M.D., at 1525 hours, on June 14, 2018. Final report concurs with initial preliminary interpretation. E:GI/amm Thoracic Spine CT 06/14/18 14:25 Impression: 1. Displaced right posterolateral 6th, 7th, and 8th rib fractures. 2. Nondisplaced right posteromedial costovertebral fractures of the right 3rd through 8th ribs. 3. No acute thoracic compression fractures. 4. Multilevel moderate to severe degenerative disk disease, worse at C7-T1, T1- T2, T7-T8, T8-T9, T9-T10, and T10-T11 levels. 5. If there is persistent pain or neurological deficit, consider MR thoracic spine. Findings and recommendations discussed with Emergency Department physician, Ji Forte M.D., at 1525 hours, on June 14, 2018. Final report concurs with initial preliminary interpretation. Imaging: Discussed imaging studies w/ shredding specialist Radiologist, I viewed and interpreted images myself ED Course/Re-evaluation: CHIEF COMPLAINT: Back pain after fall HISTORY OF PRESENT ILLNESS: The patient is a 72 y/o male with a history of a C5-C6 fusion, scoliosis, stenosis, disk degeneration and chronic pain complaining of acute back pain after falling today. The patient slipped and fell down a three foot embankment. He hit his back and head on hard, frozen dirt. He denies loss of consciousness. Currently he is having pain in between his shoulder blades. He is scheduled for a L1-S1 fusion in [address] Saxena. He currently takes Cymbalta, naproxen and a muscle relaxant for his back pain. No fever, headache, body aches , lightheadedness, chest pain, heart palpitations, shortness of breath, cough, abdominal pain, urinary or bowel complaints, numbness, paresthesias. REVIEW OF SYSTEMS: A comprehensive 10 system review of systems is otherwise negative aside from elements mentioned in the history of present illness and medical decision making. PHYSICAL EXAM: HR, BP, O2 Sat, RR. Temp noted General Appearance: Alert, well hydrated, appropriate, and non-toxic appearing. Head: Atraumatic without scalp tenderness or obvious injury Eyes: Pupils equal, round, reactive to light and accommodation, EOMI, no trauma , no injection. Ears: Clear bilaterally, no perforation, normal landmarks Nose: Atraumatic, no rhinorrhea, clear. Throat: There is no erythema or exudates, no lesions, normal tonsils, mucus membranes moist. Neck: Supple, 2+ carotid upstroke, nontender, no lymphadenopathy. Respiratory: No retractions, no distress, no wheezes, and no accessory muscle use. Lungs are clear to auscultation bilaterally. Cardiovascular: Regular rate and rhythm, no murmurs, rubs, or gallops. Bilateral carotid, radial, dorsalis pedis, and posterior tibial pulses intact. Good capillary refill all extremities. Gastrointestinal: Abdomen is soft, nontender, non-distended, no masses, no rebound, no guarding, no peritoneal signs. Musculoskeletal: Normal active ROM of all extremities, atraumatic. Back: Midline thoracic spine tenderness to palpation Neurological: Alert, appropriate, and interactive. The patient has normal DTRs and non-focal cranial nerves, motor, sensory, and cerebellar exam. Skin: No rashes, good turgor, no nodules on palpation. Past medical history: Hyperlipidemia, chronic pain, scoliosis, stenosis, disk degeneration Past surgical history: Hernia repair, C5-C6 fusion, left shoulder surgery, cholecystectomy, left hip surgery Family history: Denies Social history: at bedside, lives in [place], retired DIAGNOSTICS/PROCEDURES/CRITICAL CARE TIME: Thoracic Spine CT: Right paraspinal costovertebral fractures of 3-7. Right posterior lateral fractures of ribs 6-[address]: No acute findings. Chest CT: see findings of thoracic spine CT. DIFFERENTIAL DIAGNOSIS: The differential diagnosis for the patient's back pain included but was not limited to musculoskeletal pain, epidural abscess, herniated disk, spinal fracture, and intra-abdominal causes including urinary system. MEDICAL DECISION MAKING: The patient is a 72 y/o male with a history of a C5-C6 fusion, scoliosis, stenosis, disk degeneration and chronic pain presenting with acute back pain after falling today. On exam he has midline thoracic spine tenderness between his shoulder blades. Thoracic and lumbar spine CT ordered; 2 tab Percocet administered. Patient prefers not to take oxy as he has adverse side effects. 1528: I spoke with Dr. Bess, radiologist, who reports that the patient has numerous fractures. These include right paraspinal costovertebral fractures of 3 -7. He also has posterior lateral fractures of ribs 6-8. I will page the trauma surgeon, Dr. Calderon; IStat and chest CT ordered. 1530: I consulted with Dr. Calderon, trauma surgeon, regarding this patient. He agrees to accept this patient for pain control for the flail chest. I will page the neurosurgeon. 1543: I consulted with Dr. Fields, neurosurgeon, regarding this patient. He agrees to consult on this patient during is admission. 1545: Reassessed patient and discussed imaging finding as well as plan for admission. Patient is comfortable with plan for admission. 1mg IV Dilaudid administered prior to moving to the floor. 1706: I spoke to Dr. Weiss, radiologist, regarding patient's chest CT. There are no additional findings to the thoracic spine CT. - Data Points Laboratory Results: 06/14/18 16:13 POC Hgb 16.3 gm/dL gm/dL (13.7-17.5) POC Hct 48 % % (40-51) POC Sodium 141 mEq/L mEq/L (135-145) POC Potassium 3.8 mEq/L mEq/L (3.3-5.0) POC Chloride 104 mEq/L mEq/L (97-110) POC Total CO2 26 mEq/L mEq/L (22-31) POC BUN 20 mg/dL mg/dL (7-23) POC Creatinine 0.8 mg/dL mg/dL (0.7-1.3) POC Glucose 131 mg/dL H mg/dL (70-100) Medications Given: Discontinued Medications Hydrocodone Bitart/Acetaminophen ([place] 5/325) 2 tab PO EDNOW ONE Stop: 06/14/18 14:48 Last Admin: 06/14/18 14:51 Dose: 2 tab Hydromorphone HCl (Dilaudid) 1 mg IVP EDNOW ONE Stop: 06/14/18 15:55 Last Admin: 06/14/18 16:43 Dose: 1 mg Point of Care Test Results: Chemistry 06/14/18 16:13 POC Sodium 141 mEq/L mEq/L (135-145) POC Potassium 3.8 mEq/L mEq/L (3.3-5.0) POC Chloride 104 mEq/L mEq/L (97-110) POC Total CO2 26 mEq/L mEq/L (22-31) POC BUN 20 mg/dL mg/dL (7-23) POC Creatinine 0.8 mg/dL mg/dL (0.7-1.3) POC Glucose 131 mg/dL H mg/dL (70-100) ISTAT H&H 06/14/18 16:13 POC Hgb 16.3 gm/dL gm/dL (13.7-17.5) POC Hct 48 % % (40-51) Departure - Departure Disposition: [facility] Inpatient Acute Clinical Impression: Flail chest Condition: Fair Referrals: PITER CARTER [Primary Care Provider] - As per Instructions Report Scribed for: Ji Forte Report Scribed by: Nkechi Carmona Date of Report: 06/14/18 Time of Report: 14:21
[2018-06-14] MEDS ORDERED: HYDROCODONE/APAP 5/325 TAB PO ONE (14:47)
[2018-06-14] MEDS ORDERED: HYDROmorphONE/DILAUDID 2 MG/ML INJ IVP ONE (15:54)
[2018-06-14] MEDS ORDERED: IOPAMIDOL (ISOVUE-300) 100 ML BTL ONE (16:15)
[2018-06-14] MEDS ORDERED: ONDANSETRON 4 MG/2 ML VIAL IVP PRN (16:22)
--- NOTE | 2018-06-14 17:12 | GHP ---
[f rep st] PREOP HISTORY AND PHYSICAL DATE OF ADMISSION: 06/14/2018 CHIEF COMPLAINT: Fall. HISTORY OF PRESENT ILLNESS: This is a 72-year-old male who earlier today was attempting to get his d og off leash. He was successful in doing so; however, hit a patch of ice and states that he fell com pletely backwards, having his feet "fly out from underneath him." He states that he struck his back fairly squarely. He denies hitting his head or losing consciousness. He was able to come to a stand ing position by himself. His son states that he was near and witnessed the incident and corroborates these findings. The patient immediately knew that he was in a significant amount of pain and subseq uently presented here for further workup. Here in the emergency department, he continues to protect his airway. He has somewhat labored breathing, but is otherwise clear and his circulation is normal in all appropriate distributions. On my examination, he is complaining of right-sided back pain, wor se with any kind of movement. He is currently stable on room air. He denies having any other compla ints at this point in time. PAST MEDICAL HISTORY: Significant for degenerative spine disease, both cervical and thoracic spine. He also has hypertension, low vitamin D and osteoporosis. PAST SURGICAL HISTORY: He has had fixation of his left hip, left shoulder, cervical spine and cholec ystectomy. Most of these surgeries performed within the last year. CURRENT MEDICATIONS: Include naproxen, simvastatin, losartan, Cymbalta, vitamin supplements and Tyle nol. ALLERGIES: Sulfites. FAMILY HISTORY: Noncontributory. SOCIAL HISTORY: Retired. Lives in [place]. Denies any illicit drug use. is at bedside. REVIEW OF SYSTEMS: A full 10-point review was performed. PHYSICAL EXAMINATION: VITAL SIGNS: Temperature is 37.1, blood pressure is 137/106, heart rate is 86 and he is 93% on room air. CONSTITUTIONAL: He is in mild distress and appears uncomfortable. EYES : His pupils are equal, round and reactive to light and accommodation. He has anicteric sclerae. H is extraocular movements are intact. EARS, NOSE, MOUTH, THROAT: He has moist mucous membranes. His hearing is normal. His ears appear normal. He has normal dentition with no oral ulcers. CARDIOVAS CULAR: He has currently got a regular rate and rhythm without any murmurs, rubs, or gallops. RESPIR ATORY: He is not in respiratory distress. He is stable on room air. He has no rales or rhonchi and he is, otherwise, clear to auscultation bilaterally. There is no crepitus. He is tender to the pos terior right chest above his rib fractures. GI: He has normoactive bowel sounds. ABDOMEN: Soft, n ondistended and nontender. SKIN: Warm. Normal color. No rashes or abrasions. MUSCULOSKELETAL: S trength is intact. He has no tenderness with normal joint range of motion. NEUROLOGIC: He is alert and oriented x3. His cranial nerves 2-12 are intact. He has no weakness. No numbness or asterixis . PSYCH: He is interacting appropriately. He is not anxious or encephalopathic. LYMPH/HEME/IMMUNO LOGIC: He has no cervical, groin, or supraclavicular lymphadenopathy appreciated. LABS: H and H are stable at 16 and 48. Chemistry is unremarkable. His blood glucose is a little bi t elevated at 131. His creatinine is 0.8. His potassium is 3.8 and his sodium is 141. IMAGING: Includes a CT of his chest with thoracic and lumbar recons. These images were personally cheyanne molina. Significant findings include right paraspinal costovertebral fractures numbering 3 through 7, right posterolateral fractures numbering 6 through 8 with no hemopneumothorax. His spine imaging does show history of previous fusion at C5-C6 with some degenerative disease consistent with previous imaging. ASSESSMENT AND PLAN: This is a 72-year-old male status post mechanical fall with the above injuries including a flail segment on his rib fractures. The patient will subsequently be admitted to the [facility] service. Currently, in the emergency department, he is actually doing very well. He is on room air. His pain appears appropriately controlled. I had a long discussion with him and his about appropriate pain control for pulmonary toilet, as the trauma to his lungs could lead to significant degeneration, possible pneumonia, which could significantly complicate things. He is aware of this. Plan to restart his home medications, as well as Lovenox for prophylaxis. /[id number]/MODL
[2018-06-14] MEDS: D5W 1/2 NS W/ 20 KCl/L 1,000 ML IV SCH (18:19)
[2018-06-14] MEDS: IBUPROFEN 600 MG TAB PO SCH (21:13)
[2018-06-14] MEDS: CYCLOBENZAPRINE 10 MG TAB PO SCH (21:14)
[2018-06-14] MEDS: HYDROCODONE/APAP 5/325 TAB PO PRN (21:17)
--- NOTE | 2018-06-14 22:25 | PDMN ---
Medical Necessity Medical necessity: [facility] M545 Rib Fracture, A-2 days: 72 yo s/p mechanical fall w / imaging showing right paraspinal costovertebral fxs 3-7, right posterolateral fx 6-8 including flail segment. IP status per trauma for rib fx, 3 or more w/ flail chest.
[2018-06-15] MEDS: HYDROCODONE/APAP 5/325 TAB PO PRN ×3 (03:38→19:41)
[2018-06-15] MEDS: IBUPROFEN 600 MG TAB PO SCH (05:10)
--- NOTE | 2018-06-15 08:38 | TRAUMAPNT ---
Trauma Tertiary Progress Note New Findings: No additional findings on tertiary survey Assessment/Plan: 72-year-old gentleman admitted after mechanical fall with 3 through 8 posterior and 6 through 8 lateral right rib fractures. He also has a history of back pain with planned surgery next month with Dr. Stout Normally takes Cymbalta twice daily, Skelaxin and naproxen for his back pain. These have yet to be restarted. No additional pain outside of his right ribs. Able to take deep breaths with current pain regimen. Not able to get up and move due to pain with rib motion. Alert oriented to person place and time Regular rate and rhythm Clear to auscultation Abdomen soft nondistended nontender Extremities without edema Good muscle strength equal bilaterally Nonfocal neurologic exam No skin rashes Bruising right posterior chest Normal affect Doing fairly well with rib fractures No need for anesthesia pain at this time. Restart home medications Continue aggressive pulmonary toilet PT OT to see the patient for mobility today Objective: Vital Signs Temp Pulse Resp BP Pulse Ox 36.6 C 65 18 147/94 H 96 06/15/18 04:00 06/15/18 04:00 06/15/18 04:00 06/15/18 04:00 06/15/18 04:00 06/14/18 06/15/18 06/16/18 05:59 05:59 05:59 Intake Total 543 Output Total 275 Balance 268
[2018-06-15] MEDS: CYCLOBENZAPRINE 10 MG TAB PO SCH ×3 (09:06→21:42)
[2018-06-15] MEDS: DULoxetine 60 MG CAP PO SCH ×2 (09:06→21:42)
[2018-06-15] MEDS: DOXYCYCLINE HYCLATE 100 MG CAP/TAB PO SCH (09:06)
[2018-06-15] MEDS: ENOXAPARIN 40 MG/0.4 ML SYR SC SCH (09:07)
[2018-06-15] MEDS: NAPROXEN SODIUM 220 MG TAB PO PRN ×2 (09:14→16:29)
[2018-06-15] MEDS: HYDROmorphONE/DILAUDID 1 MG/ML INJ IVP PRN (09:15)
[2018-06-15] MEDS: FLUTICASONE NASAL 120 SPRAYS/16 GM MDI EACHNARE SCH (09:29)
--- NOTE | 2018-06-15 16:09 | ASMTCMCOM ---
CM Note CM Note Notes: Pt has injured after fall on ice, has hx back pain and is scheduled to have surgery with Dr. Deanna mccormack. Pt resides with [facility]. Today therapy recs: OT rec home/HHC PT rec SNF CONVEYOR BELT OPERATOR clear pt for home Spoke with pt and about d/c planning options, they want to see how pt does tomorrow with therapies. Pt has been to [facility] in the past and they may consider [facility] again if they choose a SNF d/c. CM to follow pt progress. D/c plan of care: TBD Date Signed: 06/15/2018 04:08 PM Electronically Signed By:MARIELA Ken
[2018-06-15] MEDS: ATORVASTATIN CALCIUM 10 MG TAB PO SCH (21:42)
[2018-06-15] MEDS: LOSARTAN POTASSIUM 25 MG TAB PO SCH (21:42)
[2018-06-16] MEDS: DOXYCYCLINE HYCLATE 100 MG CAP/TAB PO SCH (08:12)
[2018-06-16] MEDS: HYDROCODONE/APAP 5/325 TAB PO PRN (08:12)
[2018-06-16] MEDS: CYCLOBENZAPRINE 10 MG TAB PO SCH ×3 (08:12→21:00)
[2018-06-16] MEDS: ENOXAPARIN 40 MG/0.4 ML SYR SC SCH (08:13)
[2018-06-16] MEDS: DULoxetine 60 MG CAP PO SCH ×2 (08:13→20:52)
[2018-06-16] MEDS: FLUTICASONE NASAL 120 SPRAYS/16 GM MDI EACHNARE SCH (09:07)
--- NOTE | 2018-06-16 09:24 | TRAUMAPN ---
Trauma Progress Note - Problem/Surgery Performed (1) Multiple rib fractures involving four or more ribs Assessment/Plan: primary contributor to acute on chronic pain no signs of new thoracic or lumbar spine fracture on CT I recommended adding Neurontin as an adjunctive pain med continue pulmonary toilet/ambulate when pain better controlled (2) Fusion of spine of cervical region Assessment/Plan: s/p ACDF with post op infection/re-op-on Doxycycline (3) Thoracic spondylosis with cord compression Assessment/Plan: Scheduled for surgery with Dr. Saxena in July 2018/he understands that this may be delayed (4) Fall from slipping on ice Qualifiers: Encounter type: initial encounter Qualified Code(s): W00.9XXA - Unspecified fall due to ice and snow, initial encounter Assessment/Plan: s/p mechanical fall with multiple right posterior and lateral rib fractures. He has multiple comorbidities that I believe would be better managed with a brief inpatient rehab stay or SNF with OT/PT Subjective: severe pain spasms, afraid to move or cough Objective: Vital Signs Temp Pulse Resp BP Pulse Ox 36.6 C 75 18 138/83 H 92 06/16/18 08:00 06/16/18 08:00 06/16/18 08:00 06/16/18 08:00 06/16/18 08:00 06/15/18 06/16/18 06/17/18 05:59 05:59 05:59 Intake Total 543 Output Total 275 325 Balance 268 -325 - C-Spine Clearance Cervical Spine Cleared: Yes Provider who Cleared Cervical Spine: Jann Physical Exam - Physical Exam General Appearance: alert, severe distress EENT: PERRL/EOMI Neck: non-tender Respiratory: lungs clear, decreased breath sounds, splinting, pain on movement Cardiac/Chest: normal peripheral pulses, regular rate, rhythm Peripheral Pulses: 2+: dorsalis-pedis (R), dorsalis-pedis (L) Abdomen: normal bowel sounds, non-tender, soft, distended Male Genitalia: deferred Rectal: deferred Skin: warm/dry Extremities: normal range of motion, non-tender Neuro/Psych: alert, normal mood/affect, oriented x 3, motor weakness (right UE weakness/secondary to pain), other (DTRs symmetrical) Time Spent w/Patient (minutes): 25
[2018-06-16] MEDS: [UNRECOGNIZED DRUG - OTHER] EACHNARE SCH (09:54)
[2018-06-16] MEDS: NAPROXEN SODIUM 220 MG TAB PO PRN (09:57)
[2018-06-16] MEDS: GABAPENTIN 300 MG CAP PO SCH ×3 (09:57→21:00)
[2018-06-16] MEDS: HYDROmorphONE/DILAUDID 1 MG/ML INJ IVP PRN (11:32)
[2018-06-16] MEDS: METAXALONE 800 MG TAB PO PRN (11:32)
--- NOTE | 2018-06-16 14:12 | ASMTCMCOM ---
CM Note CM Note Notes: PT continues to rec SNF. Spoke with pt and [facility], they agree on SNF d/c and request referral to [facility]. Referral sent to [facility] in [employer]. CM to follow. D/c plan of care: [facility] SNF Date Signed: 06/16/2018 02:11 PM Electronically Signed By:MARIELA Ken
[2018-06-16] MEDS: HYDROCODONE/APAP 10/325 TAB PO PRN (15:09)
[2018-06-16] MEDS: LIDOCAINE 4%/MENTHOL 1% PATCH TD SCH (15:10)
[2018-06-16] MEDS: D5W 1/2 NS W/ 20 KCl/L 1,000 ML IV SCH (20:26)
[2018-06-16] MEDS: ATORVASTATIN CALCIUM 10 MG TAB PO SCH (20:51)
[2018-06-16] MEDS: LOSARTAN POTASSIUM 25 MG TAB PO SCH (20:53)
[2018-06-16] MEDS: PATCH REMOVAL 1 EA PATCH TD SCH (20:54)
[2018-06-17] MEDS: D5W 1/2 NS W/ 20 KCl/L 1,000 ML IV SCH (01:21)
[2018-06-17] MEDS: HYDROCODONE/APAP 10/325 TAB PO PRN ×4 (01:23→20:26)
[2018-06-17] MEDS: NAPROXEN SODIUM 220 MG TAB PO PRN (07:24)
[2018-06-17] MEDS: CYCLOBENZAPRINE 10 MG TAB PO SCH ×3 (07:25→21:14)
[2018-06-17] MEDS: LIDOCAINE 4%/MENTHOL 1% PATCH TD SCH (07:38)
[2018-06-17] MEDS ORDERED: BISACODYL 10 MG SUPP PR PRN (08:08)
[2018-06-17] MEDS ORDERED: POLYETHYLENE GLYCOL 3350 17 GM PKT PO PRN (08:08)
[2018-06-17] MEDS ORDERED: MAGNESIUM HYDROXIDE 30 ML UDCUP PO PRN (08:08)
[2018-06-17] MEDS: ENOXAPARIN 40 MG/0.4 ML SYR SC SCH (08:49)
[2018-06-17] MEDS: GABAPENTIN 300 MG CAP PO SCH ×3 (08:49→21:14)
[2018-06-17] MEDS: DULoxetine 60 MG CAP PO SCH ×2 (08:49→20:23)
[2018-06-17] MEDS: DOXYCYCLINE HYCLATE 100 MG CAP/TAB PO SCH (08:49)
[2018-06-17] MEDS: [UNRECOGNIZED DRUG - OTHER] EACHNARE SCH (08:50)
[2018-06-17] MEDS: SENNOSIDES/DOCUSATE SODIUM TAB PO SCH ×2 (08:57→20:26)
--- NOTE | 2018-06-17 09:02 | TRAUMAPN ---
Trauma Progress Note Assessment/Plan: 72yo M s/p fall c multiple R sided rib fx - VSS, HDS - pain is controlled, was pretty gorked yesterday from likely too much [place], have weaned the pain meds appropriately - tolerating diet, bowel regime added today - ambulate - PT/OT. - Likely to [facility] today vs tomorrow, I think he has been cleared by PT Subjective: much more alert this AM Objective: Vital Signs Temp Pulse Resp BP Pulse Ox 36.5 C 86 19 138/86 H 94 06/17/18 07:43 06/17/18 07:43 06/17/18 07:43 06/17/18 07:43 06/17/18 07:43 06/16/18 06/17/18 06/18/18 05:59 05:59 05:59 Intake Total 1000 Output Total 325 1250 Balance -325 -250 - C-Spine Clearance Cervical Spine Cleared: Yes Provider who Cleared Cervical Spine: Jann
[2018-06-17] MEDS: FLUTICASONE NASAL 120 SPRAYS/16 GM MDI EACHNARE SCH (09:06)
[2018-06-17] MEDS: ATORVASTATIN CALCIUM 10 MG TAB PO SCH (20:23)
[2018-06-17] MEDS: LOSARTAN POTASSIUM 25 MG TAB PO SCH (20:24)
[2018-06-17] MEDS: PATCH REMOVAL 1 EA PATCH TD SCH (20:45)
[2018-06-17] MEDS ORDERED: IPRATROPIUM/ALBUTEROL 3 ML DEYVIAL IH PRN (22:14)
[2018-06-18] MEDS: METAXALONE 800 MG TAB PO PRN (04:27)
[2018-06-18] MEDS: NAPROXEN SODIUM 220 MG TAB PO PRN ×2 (04:27→20:45)
[2018-06-18] MEDS: HYDROCODONE/APAP 10/325 TAB PO PRN (04:46)
--- NOTE | 2018-06-18 07:53 | TRAUMAPN ---
Trauma Progress Note Assessment/Plan: 72yo M s/p fall with R rib fx 3-8 Increased O2 requirements overnight - now on 5L CXR with hypoventilation. No ptx, no pneumonia Encouraged ambulation and IS. Goal 1000 today Plan was to DC today, but delay until oxygenation more stable. Will check back in around noon to decided on DC Seen with Dr. Garcia S: feels well this am. Does not feel short of breath. Usually wears CPAP at night. O: laying in bed, comfortable, NAD HEENT NCAT, no hearing deficits, PER, MMM Supplemental O2. Decreased BS R No chest wall ecchymosis RRR no peripheral edema Abd soft, nontender, nondistended Skin no rashes, lacerations or abrasions Objective: Vital Signs Temp Pulse Resp BP Pulse Ox 36.7 C 92 18 121/81 H 98 06/18/18 04:00 06/18/18 04:00 06/18/18 04:00 06/18/18 04:00 06/18/18 04:00 06/17/18 06/18/18 06/19/18 05:59 05:59 05:59 Intake Total 1000 Output Total 1250 50 Balance -250 -50 - C-Spine Clearance Cervical Spine Cleared: Yes Provider who Cleared Cervical Spine: Jann
[2018-06-18] MEDS: SENNOSIDES/DOCUSATE SODIUM TAB PO SCH ×2 (09:12→21:29)
[2018-06-18] MEDS: DULoxetine 60 MG CAP PO SCH ×2 (09:13→20:40)
[2018-06-18] MEDS: [UNRECOGNIZED DRUG - OTHER] EACHNARE SCH (09:14)
[2018-06-18] MEDS: DOXYCYCLINE HYCLATE 100 MG CAP/TAB PO SCH (09:14)
[2018-06-18] MEDS: CYCLOBENZAPRINE 10 MG TAB PO SCH (09:14)
[2018-06-18] MEDS: ENOXAPARIN 40 MG/0.4 ML SYR SC SCH (09:14)
[2018-06-18] MEDS: GABAPENTIN 300 MG CAP PO SCH ×3 (09:14→21:48)
[2018-06-18] MEDS: LIDOCAINE 4%/MENTHOL 1% PATCH TD SCH (09:15)
[2018-06-18] MEDS: FLUTICASONE NASAL 120 SPRAYS/16 GM MDI EACHNARE SCH (09:28)
[2018-06-18] MEDS ORDERED: CYCLOBENZAPRINE 10 MG TAB PO PRN (11:03)
[2018-06-18] MEDS: HYDROCODONE/APAP 5/325 TAB PO PRN ×2 (13:01→19:00)
--- NOTE | 2018-06-18 15:12 | ASMTCMCOM ---
CM Note CM Note Notes: D/c plan remains [facility], updates sent in [employer]. Pt likely d/c tomorrow. Date Signed: 06/18/2018 03:11 PM Electronically Signed By:MARIELA Ken
[2018-06-18] MEDS: METAXALONE 800 MG TAB PO SCH ×2 (16:21→21:48)
[2018-06-18] MEDS: ATORVASTATIN CALCIUM 10 MG TAB PO SCH (20:39)
[2018-06-18] MEDS: LOSARTAN POTASSIUM 25 MG TAB PO SCH ×2 (21:28→22:58)
[2018-06-18] MEDS: PATCH REMOVAL 1 EA PATCH TD SCH (22:32)
[2018-06-19] MEDS ORDERED: oxyCODONE IR 15 MG TAB PO PRN (07:50)
--- NOTE | 2018-06-19 07:50 | TRAUMAPN ---
Trauma Progress Note Assessment/Plan: 72yo M s/p fall with R rib fx 3-8 Improved O2 requirements overnight CXR with hypoventilation. No ptx, no pneumonia No new complaints - pain reasonably controlled Afebrile, O2 90 ra Alert, comfortable Heart regular Lungs with occasional rhonchi Abd soft Ext SCD, no swelling Slow progress To SNF today Objective: Vital Signs Temp Pulse Resp BP Pulse Ox 36.5 C 77 16 141/90 H 93 06/19/18 04:00 06/19/18 04:00 06/19/18 04:00 06/19/18 04:00 06/19/18 04:00 06/18/18 06/19/18 06/20/18 05:59 05:59 05:59 Intake Total 1150 Output Total 50 200 Balance -50 950 - C-Spine Clearance Cervical Spine Cleared: Yes Provider who Cleared Cervical Spine: Jann
--- NOTE | 2018-06-19 07:59 | PDIAF ---
- Diagnosis Diagnosis: rib fractures Code Status: Full Code - Medication Management Discharge Medications: electronically signed and located in the Home Medication List. - Orders Services needed: Registered Nurse, Physical Therapy, Occupational Therapy Isolation Type: None Oxygen: 2L as needed Diet Recommendation: no restrictions on diet Diet Texture: Regular Texture Diet Activity/Weight Bearing Restrictions: as tolerated - Follow Up Care Current Providers and Referrals: PITER CARTER [Primary Care Provider] - As per Instructions Gal Saxena MD [Medical Doctor] - (contact for upcoming surgery - which may have to be postponed)
[2018-06-19] MEDS: HYDROCODONE/APAP 5/325 TAB PO PRN ×2 (08:16→12:48)
[2018-06-19] MEDS: NAPROXEN SODIUM 220 MG TAB PO PRN (08:17)
[2018-06-19] MEDS: DOXYCYCLINE HYCLATE 100 MG CAP/TAB PO SCH (09:18)
[2018-06-19] MEDS: GABAPENTIN 300 MG CAP PO SCH (09:18)
[2018-06-19] MEDS: ENOXAPARIN 40 MG/0.4 ML SYR SC SCH (09:22)
[2018-06-19] MEDS: SENNOSIDES/DOCUSATE SODIUM TAB PO SCH (09:22)
[2018-06-19] MEDS: METAXALONE 800 MG TAB PO SCH (09:22)
[2018-06-19] MEDS: DULoxetine 60 MG CAP PO SCH (09:22)
[2018-06-19] MEDS: LIDOCAINE 4%/MENTHOL 1% PATCH TD SCH (09:23)
[2018-06-19] MEDS: [UNRECOGNIZED DRUG - OTHER] EACHNARE SCH (09:26)
[2018-06-19] MEDS: FLUTICASONE NASAL 120 SPRAYS/16 GM MDI EACHNARE SCH (11:03)
--- NOTE | 2018-06-19 11:17 | ASMTLACE ---
LACE Length of stay for Answers: 4-6 days current admission Acuity / Level of Answers: Yes Care: Did the patient have an inpatient admission? Comorbidities - select Answers: Opioid dependence all that apply / Chronic pain Other Notes: HLD # of Emergency department Answers: 1-2 visits in the last 6 months Score: 13 Date Signed: 06/19/2018 11:16 AM Electronically Signed By:Reva Wheatley RN
--- NOTE | 2018-06-19 11:19 | ASMTDCNOTE ---
Case Management Discharge Discharge Order Complete? Answers: Yes Patient to Obtain Answers: Other Notes: [facility] Medications Transportation Arranged Answers: Other Notes: [place] per [facility] Transport will Pick (Date 06/19/2018 01:00 PM & Time) Faxed Final Orders Answers: Yes Family Notified Answers: Yes Discharge Comments Notes: Patient discharged to [facility]. Transport arranged by [facility]. LURDES Wallace to call report Date Signed: 06/19/2018 11:18 AM Electronically Signed By:Reva Wheatley RN
[2018-06-19 12:08] VITALS: BP 124/79
--- NOTE | 2018-06-19 15:18 | GDS ---
[f rep st] DISCHARGE SUMMARY REASON FOR ADMISSION: Fall. HOSPITAL COURSE: 72-year-old male sustained a fall on the ice. Injuries included multiple right-sided rib fractures, numbers 3 through 7, as well as 6 through 8. He was admitted for pain control, and physical and occupational therapy services. He was discharged to rehabilitation on the in improved condition. He was still requiring intermittent supplemental oxygen for hypoventilatory efforts. He will follow up as scheduled with Dr. Huerta regarding upcoming spine surgery. He will follow up with the trauma service on an as- needed basis upon being discharged from Rehabilitation Services. Discharge medications included Flexeril as needed for pain, daily Lovenox, gabapentin 300 mg 3 times daily, [place] 1 to 2 tablets as needed for discomfort, DuoNeb inhalers p.r.n., lidocaine patch p.r.n., and oxycodone p.r.n. for breakthrough pain, as well as a bowel protocol. All instructions were explained prior to leaving. /[id number]/MODL MTDD
--- NOTE | 2018-06-19 16:01 | ASDISCHSUM ---
Discharge Information Plan Status:SNF Medically Cleared to Leave: Discharge Date:06/19/2018 01:11 PM CM D/C Disposition: ADT D/C Disposition:Residential Facility Projected Discharge Date:06/17/2018 11:00 AM Transportation at D/C: Discharge Delay Reason: Follow-Up Date:06/17/2018 11:00 AM Discharge Slot: Final Diagnosis: Placement Information Referral Type:*Longterm/SNF Referral ID:[id number] Provider Name:[facility] Address 1:[address] Address 2: City:[place] Selection Factors: State:[place] Patient Contact Information Contact Name:CCOO Relationship: Address:[address] City:[place] Alternate Phone: State/Zip Code:[place] [address] Email: Financial Information Financial Class:Medicare Primary Plan Desc:MEDICARE INPATIENT Primary Plan Number:[id number] Secondary Plan Desc:[facility] Secondary Plan Number:[id number] Assessment Information LACE LACE Length of stay for Answers: 4-6 days current admission Acuity / Level of Answers: Yes Care: Did the patient have an inpatient admission? Comorbidities - select Answers: Opioid dependence all that apply / Chronic pain Other Notes: HLD # of Emergency department Answers: 1-2 visits in the last 6 months Score: 13 Date Signed: 06/19/2018 11:16 AM Electronically Signed By:Reva Wheatley RN [facility] CM Progress Note CM Note CM Note Notes: Pt has injured after fall on ice, has hx back pain and is scheduled to have surgery with Dr. Deanna mccormack. Pt resides with [facility]. Today therapy recs: OT rec home/C PT rec SNF TECHNICAL SERVICES COORDINATOR clear pt for home Spoke with pt and about d/c planning options, they want to see how pt does tomorrow with therapies. Pt has been to [facility] in the past and they may consider [facility] again if they choose a SNF d/c. CM to follow pt progress. D/c plan of care: TBD Date Signed: 06/15/2018 04:08 PM Electronically Signed By:MARIELA Ken [facility] CM Progress Note CM Note CM Note Notes: PT continues to rec SNF. Spoke with pt and [facility], they agree on SNF d/c and request referral to [facility]. Referral sent to [facility] in [employer]. CM to follow. D/c plan of care: [facility] Date Signed: 06/16/2018 02:11 PM Electronically Signed By:MARIELA Ken [facility] CM Progress Note CM Note CM Note Notes: [facility], updates sent in [employer]. Pt likely d/c tomorrow. Date Signed: 06/18/2018 03:11 PM Electronically Signed By:MARIELA Ken Case Management Discharge Plan Note Case Management Discharge Discharge Order Complete? Answers: Yes Patient to Obtain Answers: Other Notes: [facility] Transportation Arranged Answers: Other Notes: [facility] per [facility] Transport will Pick (Date 06/19/2018 01:00 PM & Time) Faxed Final Orders Answers: Yes Family Notified Answers: Yes Discharge Comments Notes: Patient discharged to [facility]. Transport arranged by [facility]. LURDES Wallace to call report Date Signed: 06/19/2018 11:18 AM Electronically Signed By:Reva Wheatley RN Intervention Information Intervention Type:*Incorrect Registration Date of Service:06/14/2018 09:47 PM Patient Type:Observation Staff Member:Barbara Colbert Hours: Discipline: Severity: Comment:
--- NOTE | 2018-06-23 11:20 | CPEKG ---
Test Reason : OPEN Blood Pressure : / mmHG Vent. Rate : 115 BPM Atrial Rate : 115 BPM P-R Int : 159 ms QRS Dur : 079 ms QT Int : 315 ms P-R-T Axes : 033 -24 044 degrees QTc Int : 436 ms Sinus tachycardia Borderline left axis deviation Left atrial enlargement Confirmed by Mathew Lacey ([id number]) on 06/23/2018 11:20:12 AM Referred By: Adolfo Calderon Confirmed By:Mathew Lacey
== END 2018-06-19 13:11 | DRG 185 ==
LOC: OBSVTOIN 16:27 → UNDOADMOB 17:40 → F3N 17:43
PROVIDERS: ADMIT Surgery; ATTEND Surgery
DX: S22.5XXA Flail chest, initial encounter for closed fracture (principal); S22.43XA Multiple fractures of ribs, bilateral, initial encounter for closed fracture; W00.0XXA Fall on same level due to ice and snow, initial encounter; G89.29 Other chronic pain; E78.5 Hyperlipidemia, unspecified; M51.84 Other intervertebral disc disorders, thoracic region; M51.85 Other intervertebral disc disorders, thoracolumbar region; I10 Essential (primary) hypertension; M81.0 Age-related osteoporosis without current pathological fracture; E55.9 Vitamin D deficiency, unspecified; Y93.K1 Activity, walking an animal; Z98.1 Arthrodesis status
CPT/HCPCS: 82435-PO; 82565-PO; 82947-PO; 84132-PO; 84295-PO; 84520-PO; 85014-ER; 92507-GN; 92523-GN; 96374; 97116-GP; 97161-GP; 97165-GO; 97530-GO; 97530-GP; 97535-GO; J1170; J1650; Q9967